=== PATIENT | female | born 1960 | race Caucasian/White ===

== ENCOUNTER 2018-02-16 17:51 | Emergency (ER) | payer OTHER ==
[2018-02-16] MEDS ORDERED: KETOROLAC 30 MG/ML INJ ONE (18:50)
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
== END 2018-02-16 20:17 | disposition home or self-care (01) ==
LOC: ER 17:51
DX: M79.642 Pain in left hand (principal); I10 Essential (primary) hypertension; E11.9 Type 2 diabetes mellitus without complications; V49.49XA Driver injured in collision with other motor vehicles in traffic accident, initial encounter
CPT/HCPCS: 96372; 99284

== ENCOUNTER 2018-09-23 06:38 | Inpatient (IN) | payer OTHER ==
[2018-09-22 16:40] LABS: Absolute Lymphocytes (CBC) 3.1 K/uL (0.7-4.9); Absolute Monocytes 0.7 K/uL (0.1-1.3); Absolute Neutrophil 6.6 K/uL (1.8-8.0); Basophils % 0.2 % (0-1.3); Eosinophils % 1.6 % (0-4.4); Hematocrit 42.1 % (36.0-45.0); MPV 10.2 fL (7.6-11.3); Monocytes % 7.1 % (3.3-12.3); RBC Red Blood Cell Count 4.89 M/uL (3.86-4.86)
--- NOTE | 2018-09-22 16:45 | RAD REPORT ---
EXAM DESCRIPTION: RAD - Chest Pa And Lat (2 Views) - 09/22/2018 4:17 pm CLINICAL HISTORY: Preop chest, pending cholecystectomy COMPARISON: October 2009 TECHNIQUE: PA and lateral views of the chest were obtained. FINDINGS: The lungs are underinflated. Chronic interstitial pattern is accentuated by shallow inspir ation. Heart size is normal and central vasculature is within normal limits. No pleural effusion or pneumothorax seen. No acute bony finding noted. No aortic abnormality. IMPRESSION: No acute cardiopulmonary process. Chronic interstitial lung pattern could mask early interstitial edema or infiltrate.
[2018-09-22 16:57] LABS: Potassium 4.3 mmol/L (3.5-5.1)
[2018-09-22 17:01] LABS: ALT/SGPT 32 U/L (12-78); AST/SGOT 16 U/L (15-37); Albumin 3.2 g/dL (3.4-5.0); Alkaline Phosphatase 101 U/L (45-117); Amylase Level 47 U/L (25-115); Bilirubin Direct < 0.1 mg/dL (0-0.2); Bilirubin Total 0.2 mg/dL (0.2-1.0); Protein, Total 7.5 g/dL (6.4-8.2)
--- NOTE | 2018-09-22 20:30 | EKG ---
Test Date: 2018-09-22 Test Time: 16:06:50 Wrapping Checker: SHITAL MEASUREMENT RESULTS: Intervals: Rate: 91 AR: 134 QRSD: 80 QT: 368 QTc: 452 [place]: P: 62 AR: 134 QRS: 65 T: 71 INTERPRETIVE STATEMENTS: Normal sinus rhythm Possible Left atrial enlargement Borderline ECG Compared to ECG 12/10/2005 08:09:02 No significant changes Electronically Signed On 09-22-18 20:29:25 CDT by Jaquan Roth
[2018-09-23] MEDS ORDERED: NA CHLORIDE 0.9% 1,000 ML ONE ×2 (07:10→10:32)
[2018-09-23] MEDS ORDERED: CEFOXITIN/SWI 1gm 0 GM/0 ML SYR ONE (07:20)
[2018-09-23] MEDS ORDERED: MIDAZOLAM HCL 2 MG/2 ML INJ ONE (07:50)
[2018-09-23] MEDS ORDERED: PROPOFOL 200 MG/20 ML VIAL IV ONE (07:50)
[2018-09-23] MEDS ORDERED: FENTANYL CITR 100 MCG/2 ML ONE ×4 (07:50→11:23)
[2018-09-23] MEDS ORDERED: LIDOCAINE 2% MPF 5 ML VIAL ONE (07:50)
[2018-09-23] MEDS ORDERED: DEXAMETHASONE 10 MG/ML VIAL ONE (07:50)
[2018-09-23] MEDS ORDERED: ROCURONIUM 50 MG/5 ML VIAL IV ONE ×2 (07:50→11:23)
[2018-09-23] MEDS ORDERED: BUPIVACAINE 0.5% PF 10 ML VIAL ONE (09:00)
[2018-09-23] MEDS ORDERED: CIPROFLOXACIN 400mg IV 400 MG/200 ML BAG IV ONE (09:25)
--- NOTE | 2018-09-23 11:37 | RAD REPORT ---
EXAM DESCRIPTION: RAD - Cholangiogram Oper-Xray Or - 09/23/2018 11:31 am CLINICAL HISTORY: LAP ROSETTE WITH IOC COMPARISON: Abdomen Pelvis Wo Contrast dated 09/17/2018 FINDINGS: Fluoroscopic imaging is submitted from intraoperative cholangiogram attempt. The biliary t ree is not adequately visualized. Total fluoro time: 0.3 minutes
[2018-09-23] MEDS ORDERED: KETOROLAC 30 MG/ML INJ ONE (11:54)
[2018-09-23] MEDS ORDERED: GLYCOPYRROLATE 0.2 MG/ML SYR ONE (12:01)
[2018-09-23] MEDS ORDERED: NEOSTIGMINE 1 MG/ML -10 ML VIAL ONE (12:02)
[2018-09-23] MEDS ORDERED: MORPHINE 10 MG/ML VIAL ONE (12:10)
[2018-09-23] MEDS ORDERED: INSULIN -REGULAR HUMAN 50 UNIT/0.5 ML ML ONE (12:40)
[2018-09-23] MEDS: MORPHINE 4 MG/ML SYR ONE ×2 (12:56→13:14)
[2018-09-23] MEDS ORDERED: NACHLORIDE 0.45% 1,000 ML IV SCH (14:00)
[2018-09-23] MEDS ORDERED: D50W 25 GM/50 ML SYRINGE IV PRN (14:39)
[2018-09-23] MEDS ORDERED: GLUCAGON 1 MG/VIAL IM PRN (14:39)
[2018-09-23] MEDS ORDERED: DOCUSATE NA 100 MG CAP PO PRN (14:41)
[2018-09-23] MEDS: HYDROMORPHONE HCL 1 MG/ML INJ IV PRN ×3 (14:54→20:34)
--- NOTE | 2018-09-23 15:42 | P.CNS ---
Date of Consult: 09/23/18 Reason for Consult: Medical Mgmt Requesting Physician: Ari Morley Primary Care Provider: Dr Montgomery Chief Complaint: RUQ pain History of Present Illness: This is a 57-year-old female with past medical history of diabetes and high blood pressure along with obesity who was admitted to the Day Surgery today for laparoscopic cholecystectomy. Patient was taken to the OR and was found to have a lot of adhesions along with severe liver cirrhosis and thus laparoscopic approach was not be successful and this patient had open cholecystectomy. Patient tolerated the open cholecystectomy well and thus was transferred to the floor for close monitoring for next 24 hr. Medical team was consulted for medical management for the patient due to diabetes and high blood pressure. Patient states that she smokes 1 pack of cigarettes a day and occasional alcohol about 1-2 glasses per month. Denies having used any drugs. Is upset currently as she does not want to be here in the hospital once to go home. Educated regarding the need to stay 24 hr to be observed due to extensive nature of her surgery. Allergies cephalexin [From Keflex] Allergy (Verified 09/22/18 16:00) Anaphylaxis Penicillins Allergy (Verified 09/22/18 16:00) Anaphylaxis Home Medications: Glyburide/Metformin HCl [Glucovance 5-500 mg Tablet] 2 each PO BID 09/22/18 Insulin NPH Hum/Reg Insulin Hm [Humulin 70/30 Kwikpen] 20 unit SQ NOON 09/22/18 Insulin NPH Hum/Reg Insulin Hm [Humulin 70/30 Kwikpen] 40 unit SQ BID 09/22/18 Losartan Potassium 100 mg PO BID 09/22/18 Oxycodone HCl [Oxycontin] 20 mg PO BIDP PRN 09/22/18 - Past Medical/Surgical History Diabetic: Yes -: diabetes -: htn - Social History Alcohol use: No CD- Drugs: No Caffeine use: Yes Place of Residence: Home Review of Systems 10-point ROS is otherwise unremarkable Physical Examination Temp Pulse Resp BP Pulse Ox 98.0 F 98 H 16 146/77 H 93 09/23/18 14:00 09/23/18 14:00 09/23/18 14:00 09/23/18 14:00 09/23/18 14:00 General: Alert, Obese, Other (Appears to be agitated) Respiratory: Clear to auscultation bilaterally, Normal air movement Cardiovascular: Regular rate/rhythm, Normal S1 S2 Gastrointestinal: Other (Abdominal binder in place.), Tenderness Musculoskeletal: No tenderness Integumentary: No rashes Neurological: Normal speech, Normal strength at 5/5 x4 extr Lymphatics: No axilla or inguinal lymphadenopathy Laboratory Data (last 24 hrs) 09/22/18 16:00: Total Bilirubin 0.2, AST 16, ALT 32, Alkaline Phosphatase 101, Amylase 47 09/22/18 16:00: Sodium 134 L, Potassium 4.3, BUN 10, Creatinine 1.25, Glucose 267 H 09/22/18 16:00: WBC 10.6, Hgb 13.8, Hct 42.1, Plt Count 249 - Problems (1) Gallbladder disease Current Visit: Yes Status: Acute Plan: Patient with symptomatic cholelithiasis. Initially scheduled for lap choly. However converted to open. -status post open cholecystectomy with adhesion lysis POD 0 -general surgery primary on the case. -pain management with Dilaudid and [place] -encouraged to ambulate, any use incentive spirometer (2) Diabetes Current Visit: Yes Status: Chronic Plan: Patient with type 2 diabetes current blood sugar in 300 -Accuchecks a.c. HS -patient does take 40 units of long-acting in the a.m. and 20 units in the p.m. at home -currently on clear liquid diet. Will start with mild sliding scale and adjust the sliding scale appropriately Qualifiers: Diabetes mellitus type: type 2 Diabetes mellitus longterm insulin use: without terminal operations supervisor use Diabetes mellitus complication status: without complication Qualified Code(s): E11.9 - Type 2 diabetes mellitus without complications (3) Hypertension Current Visit: Yes Status: Chronic Plan: Currently blood pressure is stable. -restarted on losartan from home -will monitor closely Qualifiers: Hypertension type: essential hypertension Qualified Code(s): I10 - Essential (primary) hypertension (4) Obesity Current Visit: Yes Status: Chronic Qualifiers: Obesity type: due to excess calories Obesity classification: adult class 1 (BMI 30 - 34.9) Serious obesity comorbidity presence: without serious comorbidity Body mass index: BMI 30.0-30.9 Qualified Code(s): E66.09 - Other obesity due to excess calories; Z68.30 - Body mass index (BMI) 30.0-30.9, adult (5) Tobacco abuse Current Visit: Yes Status: Acute Plan: Educated extensively regarding tobacco cessation -will put nicotine patch on at this time Conclusions/Impression: 49-year-old female was admitted to the hospital for systematic cholelithiasis now with open cholecystectomy. Doing well postprocedure. Will continue to follow along with general surgery. Thank you for the kind consult Critical Care: No
[2018-09-23] MEDS: NICOTINE 7 MG/PAT TD SCH (16:19)
[2018-09-23] MEDS ORDERED: INSULIN -REGULAR HUMAN 50 UNIT/0.5 ML ML SQ SCH (16:30)
[2018-09-23] MEDS: NACHLORIDE 0.45% 1,000 ML IV SCH (17:59)
[2018-09-23] MEDS: ONDANSETRON 4 MG/2 ML VIAL IV PRN (18:02)
[2018-09-23] MEDS ORDERED: HYDROCODONE/CHLORPHEN 5 ML/OSYR PO ONE (20:01)
[2018-09-23] MEDS: CIPROFLOXACIN 400mg IV 400 MG/200 ML BAG IV SCH (20:35)
[2018-09-23] MEDS: LOSARTAN POTASSIUM 50 MG TABLET PO SCH (20:35)
[2018-09-23] MEDS: INSULIN -REGULAR HUMAN 50 UNIT/0.5 ML ML SQ SCH (20:35)
[2018-09-23] MEDS: BENZONATATE 100 MG CAP PO PRN (20:52)
[2018-09-23] MEDS ORDERED: HOME MED 1 EA UNK (Losartan Potassium [Losartan Potassium] 100 MG) PO SCH (21:00)
--- NOTE | 2018-09-23 21:41 | OP ---
Date of Procedure: 09/23/2018 Surgeon: Ari Morley MD Drive In Theater Attendant: MARQUISE Brandon. Preoperative Diagnosis: Symptomatic cholelithiasis. Postoperative Diagnoses: Symptomatic cholelithiasis with extensive adhesions and cirrhosis of the li lisset. Estimated Blood Loss: Minimal. Specimen: Gallbladder. Procedures Performed: Diagnostic laparoscopy, extensive lysis of adhesions. Intraoperative cholangi ogram, and open cholecystectomy. Finding: As above. Anesthesia: General. Complications: None. Disposition: The patient tolerated the procedure in stable condition and taken to Recovery in good g eneral condition. Procedure In Detail: The patient was brought to the OR and placed in supine position. General anest hesia was begun. The patient was prepped and draped in usual sterile fashion. Marcaine 0.5% was inf iltrated locally. A 15-blade was used to make a 1 cm supraumbilical midline incision. Subcutaneous tissue divided. The fascia was identified and divided. A #1 Vicryl stay suture was placed. Periton eal cavity was entered with blunt dissection, and then a 12 mm trocar was placed into the peritoneal cavity under direct vision. Pneumoperitoneum was established. Laparoscopy revealed extensive adhesi ons to the right upper quadrant, where I could not even put a trocar on that side, so 2 trocars were placed on the left side on the abdomen; 1 in the left upper quadrant, 1 in the left middle quadrant; and then LigaSure was used to divide all of the adhesions until we could get a better look at the gal lbladder, and this was encased in adhesion as well. After the right side of the abdomen all the adhe sions were taken down, then 3 trocars were placed in the standard location for gallbladder surgery. Gallbladder was distended, aspirated, and then the fundus was retracted superiorly. Extensive adhesi olysis was done on the gallbladder itself until the infundibulum identified, and then and it was retr acted inferolaterally. However, I could not get a clear view of the cystic duct at this point. Intr aoperative cholangiogram was performed, but again, the cystic duct and the common bile duct could not be visualized because there may have been a stone or a structure obstructing it. At this time, I fe lt it was safer to convert to an open. Then a right subcostal incision was made. Subcutaneous tissu e divided. The fascia was identified and divided. Peritoneal cavity entered. The liver mobilized t o bring the gallbladder into the wound, and then retrograde dissection of the gallbladder was perform ed. Care was taken, as the liver was cirrhotic, for bleeding, and this was controlled with cautery, and then the cystic duct and cystic artery were finally identified, once the infundibulum was freed f rom the surrounding tissue and then both were clamped and tied with 2-0 silk ties, excised. Clips we re used for minor branches of the artery that were present on the body of the gallbladder, and then t he gallbladder was removed, sent to Pathology as specimen. Wound was irrigated. There was no eviden ce of bleeding noted on the liver bed. However, since patient had cirrhosis, I opted to place a Surg icel, and this was observed, and there was no evidence of any further bleeding subsequently. After t he count was correct, #1 chromic was used to close the peritoneal cavity and wound irrigated, bleedin g controlled with cautery, and then #2 nylon was used to close the fascia. Wound irrigated. Bleedin g controlled with cautery and then domenico used to close all the wounds. Stay sutures at the umbilic us were tied to each other to approximate the fascial defect. Sterile dressings were applied. The patient was awakened and taken to Recovery in good general condition. JANNIE/MAKAYLAL Voice ID: [id number] Report ID: [id number]
[2018-09-24] MEDS: HYDROMORPHONE HCL 1 MG/ML INJ IV PRN ×2 (00:47→17:49)
[2018-09-24] MEDS: HYDROMORPHONE HCL 2 MG/ML inj IV PRN ×3 (03:32→23:47)
[2018-09-24] MEDS: NACHLORIDE 0.45% 1,000 ML IV SCH ×3 (04:17→23:47)
[2018-09-24 06:39] LABS: Absolute Lymphocytes (CBC) 2.4 K/uL (0.7-4.9); Absolute Monocytes 1.4 K/uL (0.1-1.3); Absolute Neutrophil 18.2 K/uL (1.8-8.0); Basophils % 0.7 % (0-1.3); Hematocrit 38.9 % (36.0-45.0); Lymphocytes % 10.7 % (15.3-44.8); MPV 10.2 fL (7.6-11.3); Monocytes % 6.3 % (3.3-12.3)
[2018-09-24 06:56] LABS: Magnesium 1.8 mg/dL (1.8-2.4)
[2018-09-24 06:57] LABS: Bilirubin Total 0.5 mg/dL (0.2-1.0); Potassium 4.5 mmol/L (3.5-5.1); Protein, Total 7.1 g/dL (6.4-8.2)
[2018-09-24] MEDS: HYDROCODONE/APAP 7.5/325 MG TAB PO PRN ×2 (07:25→16:24)
[2018-09-24] MEDS ORDERED: METFORMIN HCL 500 MG TAB PO SCH (08:00)
[2018-09-24] MEDS ORDERED: glyBURIDE 2.5 MG TAB PO SCH (08:00)
[2018-09-24] MEDS: METRONIDAZOLE 500mg IVPB 500 MG/100 ML BAG IV SCH ×4 (08:55→23:47)
[2018-09-24] MEDS: INSULIN -REGULAR HUMAN 50 UNIT/0.5 ML ML SQ SCH ×4 (08:55→21:31)
[2018-09-24] MEDS: NPH (HUMAN) 100 UNITS/ML INSULIN SQ SCH ×2 (08:56→09:00)
[2018-09-24] MEDS: LOSARTAN POTASSIUM 50 MG TABLET PO SCH ×2 (08:58→21:31)
[2018-09-24] MEDS: NICOTINE 7 MG/PAT TD SCH (08:58)
[2018-09-24] MEDS ORDERED: GLYBURIDE PO SCH (09:00)
[2018-09-24] MEDS ORDERED: METFORMIN HCL PO SCH (09:00)
[2018-09-24] MEDS: CIPROFLOXACIN 400mg IV 400 MG/200 ML BAG IV SCH ×2 (09:52→21:30)
[2018-09-24] MEDS: BENZONATATE 100 MG CAP PO PRN (11:08)
[2018-09-24] MEDS ORDERED: NPH (HUMAN) 100 UNITS/ML INSULIN SQ SCH ×2 (12:00→17:00)
--- NOTE | 2018-09-24 13:21 | P.PN ---
Subjective Date of Service: 09/24/18 Primary Care Provider: Dr Montgomery Chief Complaint: RUQ pain Subjective: Ambulating, Improving, C/O voiced (of abdominal pain.), Doing well Review of Systems 10-point ROS is otherwise unremarkable Physical Examination - Vital Signs Temperature: 98.4 F Blood Pressure: 132/69 Pulse: 114 Respirations: 16 Pulse Ox (%): 91 - Physical Exam General: Alert, Mild distress HEENT: Atraumatic, PERRLA, EOMI Neck: Supple, JVD not distended Respiratory: Clear to auscultation bilaterally, Normal air movement Cardiovascular: Regular rate/rhythm, Normal S1 S2 Gastrointestinal: Normal bowel sounds, Tenderness (Generalized tenderness. Abdominal binder in place) Musculoskeletal: No tenderness Integumentary: No rashes Neurological: Normal speech, Normal tone, Normal affect Lymphatics: No axilla or inguinal lymphadenopathy - Studies Laboratory Data (last 24 hrs) 09/24/18 06:06: Sodium 130 L, Potassium 4.5, BUN 16, Creatinine 0.95, Glucose 259 H, Total Bilirubin 0.5, AST 57 H, ALT 56, Alkaline Phosphatase 67 09/24/18 06:06: WBC 22.1 H* D, Hgb 12.7, Hct 38.9, Plt Count 236 09/24/18 06:06: Sodium Cancelled, Potassium Cancelled, BUN Cancelled, Creatinine Cancelled, Glucose Cancelled, Phosphorus 4.0, Magnesium 1.8 09/24/18 06:00: WBC Cancelled, Hgb Cancelled, Hct Cancelled, Plt Count Cancelled Medications List Reviewed: Yes Assessment And Plan - Current Problems (Diagnosis) (1) Gallbladder disease Current Visit: Yes Status: Acute Plan: Patient with symptomatic cholelithiasis. Initially scheduled for lap choly. However converted to open. -status post open cholecystectomy with adhesion lysis POD 1 -general surgery primary on the case. -pain management with Dilaudid and Wolverine -this morning patient's white count was elevated started on IV Cipro and metronidazole at this time -encouraged to ambulate, any use incentive spirometer (2) Diabetes Current Visit: Yes Status: Chronic Plan: Patient with type 2 diabetes current blood sugar in 300 -Accuchecks a.c. HS -patient does take 40 units of long-acting in the P.m. and 20 units in the a.m. at home -restarted that here in the hospital along with sliding scale -patient is noncompliant with diet and has been drinking high sugar drinks while here in the hospital despite education Qualifiers: Diabetes mellitus type: type 2 Diabetes mellitus buttermilk drier operator insulin use: without buttermilk drier operator use Diabetes mellitus complication status: without complication Qualified Code(s): E11.9 - Type 2 diabetes mellitus without complications (3) Hypertension Current Visit: Yes Status: Chronic Plan: Currently blood pressure is stable. -restarted on losartan from home -will monitor closely Qualifiers: Hypertension type: essential hypertension Qualified Code(s): I10 - Essential (primary) hypertension (4) Obesity Current Visit: Yes Status: Chronic Qualifiers: Obesity type: due to excess calories Obesity classification: adult class 1 (BMI 30 - 34.9) Serious obesity comorbidity presence: without serious comorbidity Body mass index: BMI 30.0-30.9 Qualified Code(s): E66.09 - Other obesity due to excess calories; Z68.30 - Body mass index (BMI) 30.0-30.9, adult (5) Tobacco abuse Current Visit: Yes Status: Acute Plan: Educated extensively regarding tobacco cessation -nicotine patch on at this time - Plan Pending clinical improvement at this time Discharge Plan: Home Plan to discharge in: 24 Hours - Code Status/Comfort Care Code Status Assessed: Yes Critical Care: No
--- NOTE | 2018-09-24 14:29 | PN ---
Date of Progress Note: 09/24/2018 Subjective: The patient is awake and alert. She is complaining of crampy abdominal pain. Physical Examination: Her vital signs are stable. She is slightly tachycardic. She is afebrile. She is tolerating her di et. Laboratory Data: Significant for a white count of 22,100 with a left shift. Chemistry reviewed. Ab domen is benign. Dressings clean, dry, and intact. Assessment: Status post open cholecystectomy. Recommendations: The patient wants to go home. I told her it would be against medical advice as she has significant leukocytosis requiring IV antibiotics. She decided to stay. She was encouraged to ambulate and use incentive spirometry. Continue IV antibiotics. We will check labs tomorrow. If selene norwood is improving, we will discharge patient on oral antibiotics tomorrow. /MODL Voice ID: [id number] Report ID: [id number]
[2018-09-24] MEDS: ONDANSETRON 4 MG/2 ML VIAL IV PRN ×2 (16:24→21:35)
[2018-09-25] MEDS: ONDANSETRON 4 MG/2 ML VIAL IV PRN (05:25)
[2018-09-25] MEDS: METRONIDAZOLE 500mg IVPB 500 MG/100 ML BAG IV SCH (05:25)
[2018-09-25 06:07] LABS: Absolute Lymphocytes (CBC) 2.1 K/uL (0.7-4.9); Absolute Monocytes 1.3 K/uL (0.1-1.3); Absolute Neutrophil 14.1 K/uL (1.8-8.0); Basophils % 0.3 % (0-1.3); Eosinophils % 0.2 % (0-4.4); Hematocrit 37.2 % (36.0-45.0); Lymphocytes % 12.2 % (15.3-44.8); MPV 9.9 fL (7.6-11.3); Monocytes % 7.2 % (3.3-12.3); RBC Red Blood Cell Count 4.39 M/uL (3.86-4.86)
[2018-09-25 06:26] LABS: ALT/SGPT 47 U/L (12-78); AST/SGOT 42 U/L (15-37); Albumin 2.8 g/dL (3.4-5.0); Alkaline Phosphatase 55 U/L (45-117); BUN Blood Urea Nitrogen 9 mg/dL (7-18); Bicarbonate 27 mmol/L (21-32); Bilirubin Total 0.6 mg/dL (0.2-1.0); Glucose Level 196 mg/dL (74-106); Protein, Total 6.3 g/dL (6.4-8.2); Sodium Level 132 mmol/L (136-145)
[2018-09-25] MEDS: INSULIN -REGULAR HUMAN 50 UNIT/0.5 ML ML SQ SCH (07:30)
[2018-09-25] MEDS ORDERED: NPH (HUMAN) 100 UNITS/ML INSULIN SQ SCH (08:00)
[2018-09-25] MEDS: NICOTINE 7 MG/PAT TD SCH (08:11)
[2018-09-25] MEDS: BENZONATATE 100 MG CAP PO PRN (08:11)
[2018-09-25] MEDS: LOSARTAN POTASSIUM 50 MG TABLET PO SCH (08:11)
[2018-09-25] MEDS: HYDROCODONE/APAP 7.5/325 MG TAB PO PRN (08:12)
[2018-09-25] MEDS: CIPROFLOXACIN 400mg IV 400 MG/200 ML BAG IV SCH (08:12)
[2018-09-25] MEDS: NACHLORIDE 0.45% 1,000 ML IV SCH (08:13)
--- NOTE | 2018-09-25 11:09 | RAD REPORT ---
EXAM DESCRIPTION: RAD - Chest Single View - 09/25/2018 6:32 am CLINICAL HISTORY: pneumonia Chest pain. COMPARISON: Chest Pa And Lat (2 Views) dated 09/22/2018; CHEST PA AND LAT 2 VIEW dated 10/26/2009; CHES T PA AND LAT 2 VIEW dated 12/10/2005 FINDINGS: Portable technique limits examination quality. Moderate left lung base and a mild right lung base pulmonary opacity has developed since the comparat summer study. This likely represents pneumonia/aspiration. The heart is normal in size. No displaced fra ctures.
--- NOTE | 2018-09-25 12:18 | P.PN ---
Subjective Date of Service: 09/25/18 Primary Care Provider: Dr Montgomery Chief Complaint: RUQ pain Subjective: No C/O voiced, Tolerating diet, Ambulating, Improving, Working w/ PT , Doing well Review of Systems 10-point ROS is otherwise unremarkable Physical Examination - Vital Signs Temperature: 98.7 F Blood Pressure: 145/77 Pulse: 113 Respirations: 24 Pulse Ox (%): 94 - Physical Exam General: Alert, In no apparent distress HEENT: Atraumatic, PERRLA, EOMI Neck: Supple, JVD not distended Respiratory: Clear to auscultation bilaterally, Normal air movement Cardiovascular: Regular rate/rhythm, Normal S1 S2 Gastrointestinal: Normal bowel sounds, Other (Abdominal binder in place), Tenderness (Generalized) Musculoskeletal: No tenderness Integumentary: No rashes Neurological: Normal speech, Normal tone, Normal affect Lymphatics: No axilla or inguinal lymphadenopathy - Studies Laboratory Data (last 24 hrs) 09/25/18 05:56: Sodium 132 L, Potassium 4.0, BUN 9, Creatinine 0.67, Glucose 196 H, Total Bilirubin 0.6, AST 42 H, ALT 47, Alkaline Phosphatase 55 09/25/18 05:56: WBC 17.6 H D, Hgb 12.3, Hct 37.2, Plt Count 215 Medications List Reviewed: Yes Assessment And Plan - Current Problems (Diagnosis) (1) Gallbladder disease Status: Acute Plan: Patient with symptomatic cholelithiasis. Initially scheduled for lap choly. However converted to open. -status post open cholecystectomy with adhesion lysis POD 2 -general surgery primary on the case. -pain management with Dilaudid and Gurley -white count is trending down. Patient could be switched over to oral antibiotics and discharged home today if okay with surgery -encouraged to ambulate, any use incentive spirometer (2) Diabetes Status: Chronic Plan: Patient with type 2 diabetes current blood sugar in 300 -Accuchecks a.c. 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 -restarted on losartan from home -will monitor closely Qualifiers: Hypertension type: essential hypertension Qualified Code(s): I10 - Essential (primary) hypertension (4) Obesity Status: Chronic Qualifiers: Obesity type: due to excess calories Obesity classification: adult class 1 (BMI 30 - 34.9) Serious obesity comorbidity presence: without serious comorbidity Body mass index: BMI 30.0-30.9 Qualified Code(s): E66.09 - Other obesity due to excess calories; Z68.30 - Body mass index (BMI) 30.0-30.9, adult (5) Tobacco abuse Status: Acute Plan: Educated extensively regarding tobacco cessation -nicotine patch on at this time - Plan Patient is cleared for discharge from medical standpoint at this time. Discharge Plan: Home Plan to discharge in: 48 Hours - Code Status/Comfort Care Code Status Assessed: Yes Critical Care: No
--- NOTE | 2018-09-25 13:40 | DS ---
Date of Discharge: 09/25/2018 Admitting Diagnosis: Symptomatic cholelithiasis. Discharge Diagnosis: Symptomatic cholelithiasis with extensive adhesions and cirrhosis. Procedures Performed: Diagnostic laparoscopy, lysis of adhesions, open cholecystectomy. Hospital Course: The patient is a 57-year-old female who underwent the aforementioned procedure. Po stoperatively, she was put on antibiotics, parenteral pain management. Her white count was elevated yesterday, so she was kept for an extra day for IV antibiotics. [place] [id number] is down to 17,000; however, clinically she is doing very well. She is tolerating diet ambu lating pain controlled with p.o. pain medication, afebrile, and patient wants to go home. Therefore we will discharge her on oral antibiotics, if it is okay with Dr. Morgan. Disposition: Home. Condition: Stable. Discharge Instructions: Resume home medications and diet. Activity as tolerated. No heavy lifting. Remove outer dressing in a.m. Shower. Keep wound clean and dry. Followup in my office in 1 week. Call for appointment. The patient has pain medication, and Cipro and Flagyl given. /MODL Voice ID: [id number] Report ID: [id number]
== END 2018-09-25 11:46 | disposition home or self-care (01) | DRG 416 ==
LOC: OR 06:38 → 2ND 12:00 → OR 12:28
PROVIDERS: ADMIT Surgery; ATTEND Surgery
PROC: 0FJ44ZZ Inspection of Gallbladder, Percutaneous Endoscopic Approach (ICD-10-PCS; 2018-09-23)
PROC: BF00YZZ Plain Radiography of Bile Ducts using Other Contrast (ICD-10-PCS; 2018-09-23)
PROC: 0FT40ZZ Resection of Gallbladder, Open Approach (ICD-10-PCS; principal; 2018-09-23 09:00)
DX: K80.20 Calculus of gallbladder without cholecystitis without obstruction (principal); K66.0 Peritoneal adhesions (postprocedural) (postinfection); K74.60 Unspecified cirrhosis of liver; I10 Essential (primary) hypertension; E11.9 Type 2 diabetes mellitus without complications; Z88.0 Allergy status to penicillin; E66.9 Obesity, unspecified; Z68.30 Body mass index [BMI] 30.0-30.9, adult; F17.210 Nicotine dependence, cigarettes, uncomplicated; D72.829 Elevated white blood cell count, unspecified
CPT/HCPCS: 36415; 71045; 71046; 74300; 80048; 80053; 80076; 82150; 82962; 83036; 83605; 83735; 84100; 85025; 88304; 93005; 96365; 96367; J0744; J1100; J1170; J2250; J2405; J2704; J2710; J3010; J7030

== ENCOUNTER 2021-10-24 14:11 | Inpatient (IN) | payer OTHER, SELFPAY ==
[2021-10-24] MEDS ORDERED: NA CHLORIDE 0.9% 1,000 ML ONE (14:39)
[2021-10-24 14:40] LABS: Absolute Lymphocytes (CBC) 2.6 K/uL (0.7-4.9); Lymphocytes % 24.7 % (15.3-44.8); MPV 9.2 fL (7.6-11.3); RBC Red Blood Cell Count 5.31 M/uL (3.86-4.86)
[2021-10-24 14:44] LABS: Protime INR 1.16
[2021-10-24 14:57] LABS: Potassium 3.5 mmol/L (3.5-5.1)
[2021-10-24 14:58] LABS: Troponin High Sensitivity 4695.8 pg/mL (<58.9)
--- NOTE | 2021-10-24 15:08 | RAD REPORT ---
EXAM DESCRIPTION: CT - Ct Stroke Brain Wo Cont - 10/24/2021 2:46 pm CLINICAL HISTORY: Slurred speech COMPARISON: none TECHNIQUE: Computed axial tomography of the head was obtained. All CT scans are performed using dose optimization technique as appropriate and may include automated exposure control or mA/KV adjustment according to patient size. FINDINGS: An intracranial bleed is not seen . The ventricles are normal in caliber. No extra-axial fluid collection is noted. No significant hypodensity within the brain Fluid within the sinuses/ mastoids is not seen. IMPRESSION: No acute intracranial abnormality is seen. If patient's symptoms persist MRI of the bra in would be recommended. Luisana of the emergency room was notified at 3:03 p.m. on October 24, 2021
[2021-10-24] MEDS ORDERED: INSULIN -REGULAR HUMAN 50 UNIT/0.5 ML ML ONE (15:36)
[2021-10-24] MEDS ORDERED: ASPIRIN 325 MG TAB ONE (16:10)
[2021-10-24] MEDS ORDERED: HEPARIN/D5W 25,000 UNIT/500 ML BAG IV ONE (16:13)
--- NOTE | 2021-10-24 16:26 | RAD REPORT ---
EXAM DESCRIPTION: Loly Single View10/24/2021 3:51 pm CLINICAL HISTORY: Chest pain COMPARISON: 2019 FINDINGS: Mild bilateral interstitial lung opacities probably chronic. Heart is normal size
--- NOTE | 2021-10-24 16:34 | EDPHYS ---
Physician Documentation [facility] Name: Alexa Barajas Age: 60 yrs Sex: Female : 1960 Arrival Date: 10/24/2021 Time: 14:13 Bed 14 Private MD: ED Physician Barrera Kim HPI: 10/24 14:19 This 60 yrs old Female presents to ER via EMS with complaints of S/S of Possible Stroke.jr11 14:19 The patient's problem is reported as paresthesias, in left lower extremity, in left jr11 side of face, weakness, in the left upper extremity, in the left lower extremity. Onset: The symptoms/episode began/occurred 1 week(s) ago. Duration: This was a single incident. The symptoms are alleviated by nothing. The symptoms are aggravated by walking. Associated signs and symptoms: Pertinent negatives: abdominal pain, agitation, diarrhea, not seizure. Severity of symptoms: At their worst the symptoms were moderate in the emergency department the symptoms are worse. no prior history of stroke, barely able to ambulate x 1 week. Historical: - Allergies: 14:22 PENICILLINS (Anaphylaxis); tw2 14:22 cephalexin (Anaphylaxis); tw2 14:22 Keflex (Anaphylaxis); tw2 - PMHx: 14:22 Diabetes - IDDM; Hypertension; tw2 14:45 Liver Cancer; tw2 - Immunization history:: Adult Immunizations. - Social history:: Smoking status: Patient reports the use of cigarette tobacco products, smokes one pack cigarettes per day. ROS: 14:19 All other systems are negative. jr11 Exam: 14:19 Constitutional: This is a well developed, well nourished patient who is awake, alert, jr11 and in no acute distress. Head/Face: Normocephalic, atraumatic. Eyes: Extra-ocular motions intact. Lids and lashes normal. Conjunctiva and sclera are non-icteric and not injected. Cornea within normal limits. Periorbital areas with no swelling, redness, or edema. ENT: Nares patent. No nasal discharge, no septal abnormalities noted. Oropharynx with no redness, swelling, or masses, exudates, or evidence of obstruction, uvula midline. Mucous membranes moist. Neck: Trachea midline, no thyromegaly or masses palpated, and no cervical lymphadenopathy. Supple, full range of motion without nuchal rigidity, or vertebral point tenderness. No Meningismus. Chest/axilla: Normal chest wall appearance and motion. Nontender with no deformity. No lesions are appreciated. Cardiovascular: Regular rate and rhythm with a normal S1 and S2. No gallops, murmurs, or rubs. Normal PMI, no JVD. No pulse deficits. Respiratory: Lungs have equal breath sounds bilaterally, clear to auscultation and percussion. No rales, rhonchi or wheezes noted. No increased work of breathing, no retractions or nasal flaring. Abdomen/GI: Soft, non-tender, with normal bowel sounds. No distension or tympany. No guarding or rebound. No evidence of tenderness throughout. Skin: Warm, dry with normal turgor. Normal color with no rashes, no lesions, and no evidence of cellulitis. Neuro: Awake and alert, GCS 15, oriented to person, place, time, and situation. LLE L face with decrease sensation, no drift. +dysarthra Vital Signs: 14:10 BP 180 / 89; Pulse 101; Resp 18; Temp 98.8(O); Pulse Ox 99% on R/A; Weight 54.43 kg tw2 (R); Height 5 ft. 1 in. (154.94 cm); 15:26 BP 176 / 81; Pulse 90; Resp 17; Pulse Ox 99% on R/A; tw2 16:24 BP 171 / 140; Pulse 94; Resp 16; Pulse Ox 100% on R/A; tw2 17:30 BP 140 / 119; Pulse 94; Resp 19; Pulse Ox 100% on R/A; tw2 18:26 BP 186 / 53; Pulse 97; Resp 22; Pulse Ox 100% on R/A; tw2 14:10 Body Mass Index 22.67 (54.43 kg, 154.94 cm) tw2 NIH Stroke Scale Scores: 14:19 NIHSS Score: 5 jr11 MDM: 14:16 Patient medically screened. jr11 14:19 Differential diagnosis: CVA. Data reviewed: vital signs, nurses notes, EMS record. ED jr11 course: Patient is a 60-year-old with strokelike symptoms that have been going on for 1 week, high likelihood of stroke, inability to walk, left-sided weakness, paresthesias, dysarthria and aphasia. Stroke scale of 5, not a tPA candidate given that symptoms been going on greater than 5 days.. 15:35 ED course: Pt with + trop, EKG is concerning but non diagnostic for STEMI. Pt denies [facility] any chest pain what so ever. Full dose ASA ordered. 15:53 ED course: cards Nova will see tomorrow, rec heparin drip. [facility] 10/24 14:16 Order name: Basic Metabolic Panel; Complete Time: 15:26 [facility] 10/24 14:16 Order name: CBC with Diff; Complete Time: 15:26 [facility] 10/24 14:16 Order name: Protime (+inr); Complete Time: 15:26 [facility] 10/24 14:16 Order name: Ptt, Activated; Complete Time: 15:26 [facility] 10/24 14:16 Order name: UDS [facility] 10/24 14:16 Order name: Troponin HS; Complete Time: 15:26 [facility] 10/24 14:16 Order name: CT Stroke Brain w/o Contrast; Complete Time: 15:26 [facility] 10/24 14:23 Order name: COVID-19 SARS RT PCR (Document "Date of Onset" if Symptomatic); Complete [facility] Time: 17:21 10/24 14:42 Order name: Glucose, Ancillary Testing; Complete Time: 15:26 [facility] 10/24 18:45 Order name: Urine Dipstick-Ancillary [facility] 10/24 20:11 Order name: Troponin HS [facility] 10/24 20:11 Order name: Ptt, Activated ke1 10/24 20:43 Order name: PTT, Activated Partial Thromb [facility] 10/24 20:51 Order name: Troponin High Sensitivity [facility] 10/24 14:16 Order name: Stroke CXR 1 View; Complete Time: 16:30 [facility] 10/24 14:16 Order name: EKG; Complete Time: 14:17 [facility] 10/24 14:16 Order name: Accucheck; Complete Time: 14:40 [facility] 10/24 14:16 Order name: Cardiac monitoring; Complete Time: 14:40 10/24 14:16 Order name: EKG - Nurse/Tech; Complete Time: 14:40 [facility] 10/24 14:16 Order name: IV Saline Lock; Complete Time: 14:40 [facility] 10/24 14:16 Order name: Labs collected and sent; Complete Time: 14:40 10/24 14:16 Order name: O2 Per Protocol; Complete Time: 14:23 10/24 14:16 Order name: O2 Sat Monitoring; Complete Time: 14:23 10/24 15:31 Order name: EKG; Complete Time: 15:31 10/24 19:24 Order name: US EDMS 10/24 14:16 Order name: Stroke Swallow Screen; Complete Time: 15:25 10/24 19:09 Order name: Adams; Complete Time: 19:09 tw2 Administered Medications: 14:55 Drug: NS 0.9% 1000 ml Route: IV; Rate: 1 bolus; Site: left antecubital; tw2 16:04 Follow up: Response: No adverse reaction; IV Status: Completed infusion; IV Intake: tw2 1000ml 15:32 Drug: Insulin Regular Human 5 units {Co-Signature: yunier (Jenni Hodgson RN).} Route: tw2 IVP; Site: left antecubital; 19:09 Follow up: Response: No adverse reaction tw2 16:07 Drug: Aspirin 325 mg Route: PO; ss 16:17 Follow up: Response: No adverse reaction tw2 16:15 Drug: Heparin ([place] Drip) 12 units/kg/hr - (HEParin 74454 units, D5W 500 ml) tw2 {Co-Signature: yunier (Jenni Hodgson RN).} Route: IV; Rate: calculated rate; Site: left antecubital; Point of Care Testing: Blood Glucose: 14:30 Blood Glucose: 403 mg/dL; tw2 14:30 provider notified, iv fluid ordered. tw2 Ranges: Critical Glucose Levels:Adult <50 mg/dl or >400 mg/dl <40 mg/dl or >180 mg/dl Disposition Summary: 10/24/21 16:34 Hospitalization Ordered Hospitalization Status: Inpatient Admission jr11 Provider: Mayco Pate [facility] Location: Telemetry/MedSurg (Inpatient) [facility] Condition: Serious jr Problem: new jr11 Symptoms: are unchanged jr11 Bed/Room Type: Standard [facility] Room Assignment: 205(10/24/21 20:23) ph Diagnosis - Subsequent non-ST elevation (NSTEMI) myocardial infarction jr11 - Weakness jr11 - Paresthesia of skin jr11 Discharge Instructions: - Discharge Summary Sheet tw2 Forms: - Medication Reconciliation Form jr11 - SBAR form jr11 Critical care time excluding procedures: 15:53 Critical care time: Bedside Care: 15 minutes, Consultation: 10 minutes, Family jr11 Intervention: 6 minutes. Total time: 31 minutes NIH Stroke Scale - NIH Stroke Score Date: 10/24/2021 Time: 14:19 Total Score = 5 1a. Level of Consciousness (LOC) - 0(Alert) 1b. Level of Consciousness (LOC) (Month \\T\\ Age) - 0(Both) 1c. LOC Commands (Open \\T\\ Closes Eyes/Mast Maker) - 0(Both) 2. Best Gaze (Lateral Gaze Paresis) - 0(Normal) 3. Visual Field Loss - 0(No visual loss) 4. Facial Palsy - 1(Minor Paralysis) 5a. Left Arm: Motor (10-second hold) - 0(No drift) 5b. Right Arm: Motor (10-second hold) - 0(No drift) 6a. Left Leg: Motor (5-second hold - always test supine) - 1(Drift) 6b. Right Leg: Motor (5-second hold - always test supine) - 0(No drift) 7. Limb Ataxia (finger/nose \\T\\ heel/alvarez - test with eyes open) - 0(Absent) 8. Sensory Loss (pinprick arms/legs/face) - 1(Mild to moderate loss) 9. Best Language: Aphasia (description/naming/reading) - 1(Mild to moderate aphasia) 10. Dysarthria (speech clarity - read or repeat words) - 1(Mild to Moderate) 11. Extinction and Inattention (visual/tactile/auditory/spatial/personal) - 0(No abnormality) Initials: jr11 Signatures: Dispatcher [employer] EDMS Jessie Salmeron RN RN ss Lamar Cazares RN RN ph Shaye Holland RN RN tw2 Barrera Kim MD MD jr11 Jenni faye Corrections: (The following items were deleted from the chart) 20:23 16:34 jr ph
--- NOTE | 2021-10-24 16:34 | ER ---
Nurse's Notes [facility] Name: Alexa Barajas Age: 60 yrs Sex: Female : 1960 Arrival Date: 10/24/2021 Time: 14:13 Bed 14 Private MD: Diagnosis: Subsequent non-ST elevation (NSTEMI) myocardial infarction;Weakness;Paresthesia of skin Presentation: 10/24 14:10 Chief complaint: EMS states: pt from home with s/s of stroke like symptoms x1 week. tw2 states she believes she has had another one Thursday that has interfered with her ability to ambulate. vs stable. Coronavirus screen: At this time, the client does not indicate any symptoms associated with coronavirus-19. Ebola Screen: Patient denies travel to an Ebola-affected area in the 21 days before illness onset. Initial Sepsis Screen: Does the patient meet any 2 criteria? HR > 90 bpm. No. Patient's initial sepsis screen is negative. Does the patient have a suspected source of infection? No. Patient's initial sepsis screen is negative. Risk Assessment: Do you want to hurt yourself or someone else? Patient reports no desire to harm self or others. Onset of symptoms was October 17, 2021. 14:10 Method Of Arrival: EMS: [facility] tw2 14:10 Acuity: ROXANNA 3 tw2 14:10 Note provider at bedside at this time. Care prior to arrival: IV initiated. 18 GA, in tw2 the left antecubital area. Triage Assessment: 14:10 General: Appears in no apparent distress. slender, Behavior is calm, cooperative, tw2 appropriate for age. Pain: Denies pain. Neuro: Level of Consciousness is awake, alert, obeys commands, Oriented to person, place, time, situation, Reports left sided weakness and left sided decreased sensation. Neuro: Reports speech is more slurred and slow than normal. Cardiovascular: Capillary refill < 3 seconds. Respiratory: Airway is patent Respiratory effort is even, unlabored, Respiratory pattern is regular, symmetrical. Musculoskeletal: Range of motion: intact in all extremities. Historical: - Allergies: 14:22 PENICILLINS (Anaphylaxis); tw2 14:22 cephalexin (Anaphylaxis); tw2 14:22 Keflex (Anaphylaxis); tw2 - PMHx: 14:22 Diabetes - IDDM; Hypertension; tw2 14:45 Liver Cancer; tw2 - Immunization history:: Adult Immunizations. - Social history:: Smoking status: Patient reports the use of cigarette tobacco products, smokes one pack cigarettes per day. Screenin:21 Abuse screen: Denies threats or abuse. Nutritional screening: No deficits noted. tw2 Tuberculosis screening: No symptoms or risk factors identified. Fall Risk Secondary diagnosis (15 points) impaired mobility. 15:10 Patient has been NPO before screening. The patient is alert, able to follow commands. tw2 The patient does not exhibit slurred or garbled speech The patient is not exhibiting difficulty speaking. The patient does not exhibit difficulty understanding words. The patient is able to swallow own secretions with no drooling or need for suction. Patient tolerated one teaspoon of water. No drooling, immediate coughing, gurgling, or clearing of the throat was noted. The patient tolerated 90mL of water. No drooling, immediate coughing, gurgling, or clearing of the throat was noted. The patient passed the bedside swallow screening. Oral medications may be given as ordered. Contact Physician for further diet orders. Provider notified of bedside swallow screening results: Barrera Kim MD. Assessment: 14:22 Reassessment: see triage assessment. tw2 14:42 Reassessment: pt in imaging at this time. tw2 15:25 Reassessment: Patient appears in no apparent distress at this time. Patient and/or tw2 family updated on plan of care and expected duration. Pain level reassessed. Patient is alert, oriented x 3, equal unlabored respirations, skin warm/dry/pink. 16:24 Reassessment: Patient appears in no apparent distress at this time. Patient and/or tw2 family updated on plan of care and expected duration. Pain level reassessed. Patient is alert, oriented x 3, equal unlabored respirations, skin warm/dry/pink. 17:45 Reassessment: Patient appears in no apparent distress at this time. No changes from tw2 previously documented assessment. Patient and/or family updated on plan of care and expected duration. Pain level reassessed. Patient is alert, oriented x 3, equal unlabored respirations, skin warm/dry/pink. 18:24 Reassessment: Patient appears in no apparent distress at this time. No changes from tw2 previously documented assessment. Patient and/or family updated on plan of care and expected duration. Pain level reassessed. Patient is alert, oriented x 3, equal unlabored respirations, skin warm/dry/pink. pt requesting raymond catheter at this time. states "i cant walk", offered pt to use bed lea states "i couldn't go earlier. spoke with dr. pate and he is agreeable. 21:17 Reassessment: Report given to Jeff heparin drip increased to 753 at 2111. ke1 Vital Signs: 14:10 BP 180 / 89; Pulse 101; Resp 18; Temp 98.8(O); Pulse Ox 99% on R/A; Weight 54.43 kg tw2 (R); Height 5 ft. 1 in. (154.94 cm); 15:26 BP 176 / 81; Pulse 90; Resp 17; Pulse Ox 99% on R/A; tw2 16:24 BP 171 / 140; Pulse 94; Resp 16; Pulse Ox 100% on R/A; tw2 17:30 BP 140 / 119; Pulse 94; Resp 19; Pulse Ox 100% on R/A; tw2 18:26 BP 186 / 53; Pulse 97; Resp 22; Pulse Ox 100% on R/A; tw2 14:10 Body Mass Index 22.67 (54.43 kg, 154.94 cm) tw2 NIH Stroke Scale Scores: 14:19 NIHSS Score: 5 [facility] ED Course: 14:12 Bed in low position. Call light in reach. Side rails up X2. lunchroom monitor on. Pulse tw2 ox on. NIBP on. Warm blanket given. 14:13 Patient arrived in ED. tw2 14:13 Barrera Kim MD is Attending Physician. jr11 14:17 Shaye Holland, TIMOTEO is Primary Nurse. tw2 14:18 Triage completed. tw2 14:19 Arm band placed on. tw2 14:21 Maintain EMS IV. Dressing intact. Good blood return noted. Site clean \\T\\ dry. Gauge \\T\\ tw 2 site: 18 g LEFT ac. 14:47 CT Stroke Brain w/o Contrast In Process Unspecified. EDMS 15:53 Stroke CXR 1 View In Process Unspecified. EDMS 16:33 Mayco Pate MD is Hospitalizing Provider. jr11 18:48 Raymond cath inserted, using sterile technique, 18 Fr., by tn, balloon inflated, urine tw2 specimen collected. 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 19:05 Report given to TIMOTEO Gaona. tw2 21:47 No provider procedures requiring assistance completed. Patient admitted, IV remains in ke1 place. Administered Medications: 14:55 Drug: NS 0.9% 1000 ml Route: IV; Rate: 1 bolus; Site: left antecubital; tw2 16:04 Follow up: Response: No adverse reaction; IV Status: Completed infusion; IV Intake: tw2 1000ml 15:32 Drug: Insulin Regular Human 5 units {Co-Signature: yunier (Jenni Hodgson RN).} Route: tw2 IVP; Site: left antecubital; 19:09 Follow up: Response: No adverse reaction tw2 16:07 Drug: Aspirin 325 mg Route: PO; ss 16:17 Follow up: Response: No adverse reaction tw2 16:15 Drug: Heparin (WI Drip) 12 units/kg/hr - (HEParin 50030 units, D5W 500 ml) tw2 {Co-Signature: yunier (Jenni Hodgson RN).} Route: IV; Rate: calculated rate; Site: left antecubital; Medication: 14:46 VIS not applicable for this client. tw2 Point of Care Testing: Blood Glucose: 14:30 Blood Glucose: 403 mg/dL; tw2 14:30 provider notified, iv fluid ordered. tw2 Ranges: Intake: 16:04 IV: 1000ml; Total: 1000ml. tw2 Outcome: 16:34 Decision to Hospitalize by Provider. jr11 21:47 Admitted to Med/surg accompanied by tech. ke1 21:47 Condition: stable 21:47 Instructed on the need for admit. 21:48 Patient left the ED. ke1 NIH Stroke Scale - NIH Stroke Score Date: 10/24/2021 Time: 14:19 Total Score = 5 1a. Level of Consciousness (LOC) - 0(Alert) 1b. Level of Consciousness (LOC) (Month \\T\\ Age) - 0(Both) 1c. LOC Commands (Open \\T\\ Closes Eyes/Special Events Coordinator) - 0(Both) 2. Best Gaze (Lateral Gaze Paresis) - 0(Normal) 3. Visual Field Loss - 0(No visual loss) 4. Facial Palsy - 1(Minor Paralysis) 5a. Left Arm: Motor (10-second hold) - 0(No drift) 5b. Right Arm: Motor (10-second hold) - 0(No drift) 6a. Left Leg: Motor (5-second hold - always test supine) - 1(Drift) 6b. Right Leg: Motor (5-second hold - always test supine) - 0(No drift) 7. Limb Ataxia (finger/nose \\T\\ heel/alvarez - test with eyes open) - 0(Absent) 8. Sensory Loss (pinprick arms/legs/face) - 1(Mild to moderate loss) 9. Best Language: Aphasia (description/naming/reading) - 1(Mild to moderate aphasia) 10. Dysarthria (speech clarity - read or repeat words) - 1(Mild to Moderate) 11. Extinction and Inattention (visual/tactile/auditory/spatial/personal) - 0(No abnormality) Initials: jr11 Signatures: Dispatcher [employer] Jessie Bridges RN RN ss Shaye Holland RN RN tw2 Bon Triplett RN RN ke1 Barrera Kim MD MD jr11 Jenni faye
--- NOTE | 2021-10-24 17:42 | P.HP ---
Certification for Inpatient Patient admitted to: Inpatient With expected LOS: >2 Midnights Practitioner: I am a practitioner with admitting privileges, knowledge of patient current condition, hospital course, and medical plan of care. Services: Services provided to patient in accordance with Admission requirements found in Title 42 Section 412.3 of the Code of Federal Regulations Patient History Date of Service: 10/24/21 Reason for admission: NSTEMI, TIA History of Present Illness: 60 y o female patient medical history significant for tobacco abuse, hypertension, diabetes type 1, hyperlipidemia was evaluated in the emergency room for episode of left-sided weakness. She reported that this been going on for the past 4 days with associated tingling sensation in the left upper extremity. She denied overt episode of chest pain but she has been belching a lot. She denies fever, chills, rigor, nausea, vomiting. She denies changes in vision. She was worked up in the emergency room for suspected stroke and a CT of the head was negative however a troponin was found to be elevated more than 4000. She was deemed to be having NSTEMI so she was admitted for inpatient car e. She was discussed with cardiology team will ask for heparin drip to be started for ACS protocol. Allergies cephalexin [From Keflex] Allergy (Verified 09/22/18 16:00) Anaphylaxis Penicillins Allergy (Verified 09/22/18 16:00) Anaphylaxis Home Medications: Glyburide/Metformin HCl [Glucovance 5-500 mg Tablet] 2 each PO BID 09/22/18 Insulin NPH Hum/Reg Insulin Hm [Humulin 70/30 Kwikpen] 20 unit SQ NOON 09/22/18 Insulin NPH Hum/Reg Insulin Hm [Humulin 70/30 Kwikpen] 40 unit SQ BID 09/22/18 Losartan Potassium 100 mg PO BID 09/22/18 Oxycodone HCl [Oxycontin] 20 mg PO BIDP PRN 09/22/18 - Past Medical/Surgical History Diabetic: Yes -: diabetes -: htn - Social History Alcohol use: No CD- Drugs: No Caffeine use: Yes Review of Systems General: Malaise Eyes: Unremarkable ENT: Unremarkable Cardiovascular: Unremarkable Gastrointestinal: Other (Dyspepsia), Unremarkable Genitourinary: Unremarkable Musculoskeletal: Unremarkable Neurological: Weakness, Numbness Physical Examination - Physical Exam General: Alert, Oriented x3 HEENT: Atraumatic, Normocephalic Neck: Supple Respiratory: Normal air movement Cardiovascular: Regular rate/rhythm, Normal S1 S2 Gastrointestinal: Soft and benign Musculoskeletal: No swelling Neurological: Normal speech, Cranial nerves 3-12 intact, Abnormal strength (Weak in the upper and lower extremity on the left) - Studies Laboratory Data (last 24 hrs) 10/24/21 14:30: PT 12.8 H, INR 1.16, APTT 31.1 10/24/21 14:30: WBC 10.4, Hgb 15.3 H, Hct 46.0 H, Plt Count 184 10/24/21 14:30: Sodium 132 L, Potassium 3.5, BUN 13, Creatinine 0.97, Glucose 399 H Assessment and Plan - Plan NSTEMI: Patient has elevated troponin raising concern for NSTEMI. EKG was not abnormal. Will start heparin drip and monitor on telemetry. Continue as needed morphine for pain control. Will continue aspirin for as primary management of ACS. Will obtain lipid panel to evaluate lipid status. Will obtain echocardiogram for ventricular function assessment. Cardiology to evaluate. TIA/CVA: She does have left-sided weakness raising concern. Will obtain echocardiogram and MRI to evaluate. Will continue aspirin therapy. Neurology to evaluate for management recommendation Diabetes type 1: Will continue patient on sliding scale saline for glucose control History today. we will start long-acting insulin for additional glucose control. Will obtain hemoglobin A1c. Hypertension: We will monitor vital signs per unit protocol and continue antihypertensive medications Hyperlipidemia: Will obtain lipid panel. Continue statin therapy Prophylaxis: Heparin drip to be continued for ACS management and issue suffice for DVT prophylaxis CODE STATUS: Full code. Disposition: Work-up ACS. - Advance Directives Does patient have a Living Will: No Does patient have a Durable POA for Healthcare: No
[2021-10-24 18:44] LABS: Urine Blood Negative (Negative); Urine Glucose 2+ (Negative); Urine Protein Negative (Negative); Urine Specific Gravity 1.015 (1.005-1.030)
[2021-10-24 19:00] LABS: Barbiturates NEGATIVE (NEGATIVE); Benzodiazepines NEGATIVE (NEGATIVE); Cocaine NEGATIVE (NEGATIVE); METHAMPHETAM NEGATIVE (NEGATIVE); Methadone NEGATIVE (NEGATIVE); Opiates NEGATIVE (NEGATIVE); Phencyclidine NEGATIVE (NEGATIVE); THC Cannibis NEGATIVE (NEGATIVE)
--- NOTE | 2021-10-24 19:23 | RAD REPORT ---
EXAM DESCRIPTION: USCarotid Artery Bilateral10/24/2021 7:04 pm CLINICAL HISTORY: TIA COMPARISON: None FINDINGS: The velocity of the right internal carotid artery equals 132 cm/sec. The right ICA/CCA rat io 1.9 The velocity of the left internal carotid artery equals 180 cm/sec. The left ICA/CCA ratio 2.5 Moderate plaque within the left internal carotid artery. This appears to result in an approximately 6 0% stenosis Mild plaque within the right internal carotid artery appears to result in an approximately 30-40% edilberto nosis Mild plaque within the common and external carotid arteries The vertebral arteries demonstrate antegrade flow IMPRESSION: Moderate plaque within the left internal carotid artery NASCET criteria used. Mild 0-49% stenosis Moderate 50-69% stenosis Severe 70-99% stenosis
[2021-10-24] MEDS ORDERED: HEPARIN/D5W 25,000 UNIT/500 ML BAG IV SCH (20:00)
[2021-10-24 20:20] VITALS: BMI 3243.3
[2021-10-24] MEDS ORDERED: PANTOPRAZOLE 40 MG INJ IVP ONE (22:28)
[2021-10-24] MEDS ORDERED: SODIUM CHLORIDE 0.9% 10ML INJ IV PRN (22:28)
[2021-10-24] MEDS: NICOTINE 21 MG/PAT TD SCH (22:55)
[2021-10-24] MEDS: INSULIN GLARGINE 100 UNIT/ML SQ SCH (22:55)
[2021-10-24] MEDS: NA CHLORIDE 0.9% 1,000 ML IV SCH (22:56)
[2021-10-24] MEDS: ONDANSETRON 4 MG/2 ML VIAL IV PRN (23:04)
[2021-10-24] MEDS: HYDRALAZINE HCL 20 MG/ML VIAL IV PRN (23:04)
[2021-10-25] MEDS ORDERED: HEPARIN 5000 UNIT/ML 1 ML VIAL IV SCH (02:00)
[2021-10-25 06:04] LABS: Absolute Lymphocytes (CBC) 3.9 K/uL (0.7-4.9); Lymphocytes % 34.4 % (15.3-44.8); MPV 9.4 fL (7.6-11.3); RBC Red Blood Cell Count 4.96 M/uL (3.86-4.86)
--- NOTE | 2021-10-25 06:17 | EKG ---
Test Date: 2021-10-24 Test Time: 15:35:51 [employer] Specialists: MARLYN MEASUREMENT RESULTS: Intervals: Rate: 92 MN: 134 QRSD: 76 QT: 412 QTc: 509 [place]: P: 71 MN: 134 QRS: 74 T: 75 INTERPRETIVE STATEMENTS: Normal sinus rhythm Prolonged QT Abnormal ECG Compared to ECG 10/24/2021 14:28:08 Prolonged QT interval now present ST (T wave) deviation no longer present Electronically Signed On 10-25-21 06:16:11 CDT by Eh Grant
--- NOTE | 2021-10-25 06:18 | EKG ---
Test Date: 2021-10-24 Test Time: 14:28:08 [employer] Factors Ergonomist: CAROL MEASUREMENT RESULTS: Intervals: Rate: 100 HI: 126 QRSD: 74 QT: 376 QTc: 485 [place]: P: 69 HI: 126 QRS: 65 T: 95 INTERPRETIVE STATEMENTS: Normal sinus rhythm Nonspecific ST abnormality Abnormal ECG Compared to ECG 09/22/2018 16:06:50 ST (T wave) deviation now present Electronically Signed On 10-25-21 06:16:13 CDT by Eh Grant
[2021-10-25 06:26] LABS: Albumin 2.9 g/dL (3.4-5.0); Bilirubin Total 0.3 mg/dL (0.2-1.0); Potassium 3.6 mmol/L (3.5-5.1); Protein, Total 6.5 g/dL (6.4-8.2)
[2021-10-25] MEDS ORDERED: LIDOCAINE 1% 20 ML MDV ONE (06:34)
[2021-10-25] MEDS ORDERED: FENTANYL CITR 100 MCG/2 ML ONE (06:34)
[2021-10-25] MEDS ORDERED: HEPA 1000U/500MLS 1,000 UNIT/500 ML BAG IV ONE (06:34)
[2021-10-25] MEDS ORDERED: MIDAZOLAM HCL 2 MG/2 ML INJ ONE (06:35)
[2021-10-25] MEDS ORDERED: NA CHLORIDE 0.9% 0 ML ONE ×2 (06:35→06:36)
[2021-10-25] MEDS ORDERED: ATROPINE SULF 1 MG/10 ML SYR IV ONE (06:35)
[2021-10-25] MEDS ORDERED: NITROGLYCERIN/D5W 25 MG/250 ML BTL IV ONE (07:18)
[2021-10-25] MEDS ORDERED: NITROGLYCERIN 100 MCG/ML SYR (for cath lab use only) IV ONE (07:18)
[2021-10-25] MEDS ORDERED: HYDRALAZINE HCL 20 MG/ML VIAL ONE (07:33)
[2021-10-25] MEDS ORDERED: LORazepam 2 MG/ML VIAL IV ONE (08:52)
[2021-10-25] MEDS: INSULIN GLARGINE 100 UNIT/ML SQ SCH ×2 (09:00→22:40)
[2021-10-25] MEDS: NICOTINE 21 MG/PAT TD SCH (09:00)
[2021-10-25] MEDS ORDERED: LORazepam 2 MG/ML VIAL ONE (09:01)
--- NOTE | 2021-10-25 09:57 | RAD REPORT ---
EXAM DESCRIPTION: MRI - Brain Wo Cont - 10/25/2021 9:38 am CLINICAL HISTORY: TIA COMPARISON: Head CT October 24, 2021 TECHNIQUE: Axial, sagittal, and coronal magnetic resonance images of the brain were obtained. FINDINGS: Diffusion-weighted/ADC mapping demonstrates multiple areas of increased signal within the medulla and ca measuring up to 7 millimeters. The majority lie within the left aspect of the brainstem althoug h several lie within the right as well. Small area abnormal signal within the right cerebellum. The ventricles are normal caliber. An extra-axial fluid collection is not noted. Fluid within the sinuses/mastoids is not seen IMPRESSION: Multiple areas of acute infarction involving the medulla and ca. Small acute infarct r ight cerebellum
--- NOTE | 2021-10-25 11:07 | ECHO ---
HEIGHT: 5 ft 1 in WEIGHT: 119 lb 15.962 oz DATE OF STUDY: 10/25/[address]: Mayco Pate MD 2-DIMENSIONAL: YES M.MODE: YES DOPPLER: YES COLOR FLOW: YES TDS: NO PORTABLE: YES DEFINITY: NO BUBBLE STUDY: NO DIAGNOSIS: TRANSIENT ISCHEMIC ATTACK, NSTEMI CARDIAC HISTORY: CATHERIZATION:YES SURGERY: NO PROSTHETIC VALVE: NO PACEMAKER: NO MEASUREMENTS (cm) DIASTOLIC (NORMALS) SYSTOLIC (NORMALS) IVSd 1.1 (0.6-1.2) LA Diam 2.6 (1.9-4.0) LVEF 62% LVIDd 2.7 (3.5-5.7) LVIDs 1.8 (2.0-3.5) %FS 32% LVPWd 1.2 (0.6-1.2) Ao Diam 2.0 (2.0-3.7) 2 DIMENSIONAL ASSESSMENT: RIGHT ATRIUM: NORMAL LEFT ATRIUM: NORMAL RIGHT VENTRICLE: NORMAL LEFT VENTRICLE: NORMAL TRICUSPID VALVE: NORMAL MITRAL VALVE: NORMAL PULMONIC VALVE: NORMAL AORTIC VALVE: NORMAL PERICARDIAL EFFUSION: NONE AORTIC ROOT: NORMAL LEFT VENTRICULAR WALL MOTION: NORMAL DOPPLER/COLOR FLOW: NORMAL COMMENTS: NORMAL 2D ECHOCARDIOGRAM WITH DOPPLER. NO WALL MOTION ABNORMALITY. NO EFFUSION. TECHNOLOGIST: Jeniffer KEY
[2021-10-25] MEDS ORDERED: POTASSIUM CL SA 10 MEQ TAB PO ONE (11:14)
[2021-10-25] MEDS: NA CHLORIDE 0.9% 1,000 ML IV SCH ×2 (13:00→16:59)
--- NOTE | 2021-10-25 17:24 | P.PN ---
Subjective Date of Service: 10/25/21 Chief Complaint: NSTEMI, TIA Subjective: No new changes Physical Examination - Vital Signs Temperature: 98.5 F Blood Pressure: 149/66 Pulse: 106 Respirations: 18 Pulse Ox (%): 100 - Physical Exam General: Alert, Oriented x3 HEENT: Atraumatic, Normocephalic Neck: Supple Respiratory: Normal air movement Cardiovascular: Regular rate/rhythm, Normal S1 S2 Gastrointestinal: Soft and benign Musculoskeletal: No swelling Neurological: Abnormal strength (left upper and lower extremity weakness. ) Assessment And Plan - Plan NSTEMI: Cardiology evaluated patient and she had left heart cath done. Multivessel disease found. Recommendation was to have coronary artery bypass graft surgery done. Will transfer to higher level of care. Cardiology following. We will continue heparin drip pending transfer TIA/CVA: MRI of the brain done. Multiple embolic infarcts found in ca, medulla and right cerebellum. Will continue antiplatelet therapy. Will continue heparin. Will continue high-dose statin Diabetes type 1: Will continue patient on sliding scale insulin for glucose control. we will continue long-acting insulin for additional glucose control. Hypertension: We will monitor vital signs per unit protocol and continue antihypertensive medications Hyperlipidemia: Continue statin therapy Prophylaxis: Heparin drip to be continued for ACS management and should suffice for DVT prophylaxis CODE STATUS: Full code. Disposition: For transfer to Higher level care center for CABG surgery.
--- NOTE | 2021-10-25 18:22 | OP ---
Date of Procedure: 10/25/2021 Surgeon: Eh Grant MD Human Resource Officer: Ms. Ela Evans. Procedure: Left heart catheterization, selective coronary arteriogram, and common femoral artery ang iogram. Indication: Non-STEMI. History Of Present Illness: Ms. Barajas is 60, brought to the yard laborer today as an inpatient after she came in yesterday with non-STEMI. Troponin in the 4000. She was prepped and draped in the routine sterile fashion. She was given Versed and fentanyl for sedation. She was given 10 mg of IV hydralaz ine for severe hypertension. A 6-Botswanan sheath introduced in the right common femoral artery success fully. Using the Seldinger technique, a 10 cc of xylocaine. Angiography today showed a complete occ lusion of the SFA. Angio-Seal was used to close the case. A Rosita catheter left and right were us ed to do the diagnostic catheterization. She was found to have an 80% distal left main stenosis, 40% mid LAD stenosis, 90% RCA distal dominant. No complication. Blood Loss: 5 mL. Postoperative Diagnosis: Severe coronary artery disease. Plan: For CABG. We will try to transfer the patient to either [place] or [place] for her surgery. Anesthesia: Total conscious sedation 30 minutes. Production Lapping Machine Operator was myself. GABRIELLE/MARSHA Voice ID: [id number] Report ID: [id number]
[2021-10-25] MEDS ORDERED: ALPRAZOLAM 0.25 MG TABLET PO PRN (22:08)
[2021-10-25] MEDS ORDERED: ACETAMINOPHEN 325 MG TABLET PO PRN (23:45)
[2021-10-25] MEDS: HYDRALAZINE HCL 20 MG/ML VIAL IV PRN (23:52)
[2021-10-26] MEDS: ONDANSETRON 4 MG/2 ML VIAL IV PRN (01:10)
[2021-10-26 06:17] LABS: Potassium 3.6 mmol/L (3.5-5.1)
[2021-10-26] MEDS: NICOTINE 21 MG/PAT TD SCH (08:46)
[2021-10-26] MEDS: INSULIN GLARGINE 100 UNIT/ML SQ SCH (08:47)
[2021-10-26] MEDS ORDERED: FOLIC ACID 1 MG TABLET PO SCH (09:00)
[2021-10-26] MEDS: NA CHLORIDE 0.9% 1,000 ML IV SCH (09:00)
[2021-10-26] MEDS ORDERED: POTASSIUM CL SA 10 MEQ TAB PO ONE (09:00)
--- NOTE | 2021-10-26 10:47 | CON ---
Date of Consultation: 10/25/2021 Reason For Consultation: Non-STEMI. History Of Present Illness: Ms. Barajas is a 60-year-old white woman with history of diabetes, liver c ancer on chemotherapy, came in with atypical chest pain including left chest numbness, left lower ext remity numbness, weakness over the left side. She initially thought she has a stroke, but she had a CT of her head that was negative. Chest x-ray was negative. She was hypertensive at 186/53. Her tr oponin was 4965 with a glucose of 242. Carotid Doppler showed a 60% stenosis. That stenosis was in the left side. Denied PND, orthopnea, pedal edema, palpitation, or syncope. Denied any nausea or vo miting or diaphoresis. Past Medical History: As stated above. Allergies: SHE IS ALLERGIC TO CEPHALEXIN AND PENICILLIN. Medications: At home include insulin and chemotherapy for her liver. She is followed by the [facility] in [place]. Review of Systems: Negative. Social History: Negative. Family History: Noncontributory. Physical Examination: General: She was in sinus rhythm. Blood pressure was 186/53. HEENT: Negative. Neck: Supple with no bruit. Chest: Clear. Cardiac: Revealed a regular rhythm and rate. No murmurs, gallops, or rubs. Abdomen: Benign. Extremities: Revealed no clubbing, cyanosis, or edema. Diagnostic Data: As stated earlier. Echocardiogram was normal. Assessment And Plan: The patient is on heparin. We will hold her heparin and call to the microbiology lab assistant. Catheterization will be done today to define her coronary anatomy. She understands the risks and th e benefits of the procedure and she agrees to proceed. Her liver cancer is being handled by the [facility]. Her diabetes is poorly controlled. Blood pressure is poorly controlled. She should be o n a beta-kam, statin, and aspirin. Her carotid stenosis had to be followed every 6 [place] to [place]. We will see what her CAT shows before making further decisions. GABRIELLE/MARSHA Voice ID: [id number] Report ID: [id number]
[2021-10-26 12:38] VITALS: BP 153/77; TEMP 99.1
--- NOTE | 2021-10-26 12:56 | P.DS ---
Admission Date: 10/24/21 Discharge Date: 10/26/21 Disposition: TRANSFER TO [facility] Discharge Condition: SERIOUS Reason for Admission: NSTEMI, TIA Brief History of Present Illness: 60 y o female patient medical history significant for tobacco abuse, hypertension, diabetes type 1, hyperlipidemia was evaluated in the emergency room for episode of left-sided weakness. She reported that this been going on for the past 4 days with associated tingling sensation in the left upper extremity. She denied overt episode of chest pain but she has been belching a lot. She denies fever, chills, rigor, nausea, vomiting. She denies changes in vision. She was worked up in the emergency room for suspected stroke and a CT of the head was negative however a troponin was found to be elevated more than 4000. She was deemed to be having NSTEMI so she was admitted for inpatient care. She was discussed with cardiology team will ask for heparin drip to be started for ACS protocol. Hospital Course: Patient was admitted to the acute medicine service for management of NSTEMI and she was started on heparin drip per ACS protocol. She also had work-up for possible stroke with carotid Doppler ultrasound echocardiogram and MRI of the brain. 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 She had left heart cath done on the second of admission and she was found to have significant stenosis in multiple vessels which include the right coronary with 90% stenosis left main with 80% stenosis and distal left circumflex with 40% stenosis. She was deemed to be in need of bypass graft surgery and cardiology asked patient to be transferred to a higher level of care for coronary artery bypass surgery. She was accepted at [facility] in [facility] and she is transferred in stable condition for cardiothoracic surgery evaluation for co ronary bypass graft surgery. She was continued on heparin drip since admission admission and initial elevated troponin started to trend down significantly. Vital Signs/Physical Exam: Temp Pulse Resp BP Pulse Ox 99.1 F 95 H 18 153/77 H 98 10/26/21 12:00 10/26/21 12:00 10/26/21 12:00 10/26/21 12:00 10/26/21 12:00 General: Alert, Oriented x3 HEENT: Atraumatic, Normocephalic Neck: Supple Respiratory: Normal air movement Cardiovascular: Regular rate/rhythm, Normal S1 S2 Gastrointestinal: Soft and benign Musculoskeletal: No swelling Neurological: Normal speech Laboratory Data at Discharge: WBC 11.3 K/uL (4.3-10.9) H 10/25/21 05:54 Hgb 14.3 g/dL (12.0-15.0) 10/25/21 05:54 Hct 42.0 % (36.0-45.0) 10/25/21 05:54 Plt Count 165 K/uL (152-406) 10/25/21 05:54 PT 12.8 SECONDS (9.5-12.5) H 10/24/21 14:30 INR 1.16 10/24/21 14:30 APTT 47.0 SECONDS (24.3-36.9) H 10/26/21 11:33 Sodium 135 mmol/L (136-145) L 10/26/21 05:45 Potassium 3.6 mmol/L (3.5-5.1) 10/26/21 05:45 BUN 9 mg/dL (7-18) 10/26/21 05:45 Creatinine 0.75 mg/dL (0.55-1.3) 10/26/21 05:45 Glucose 190 mg/dL (74-106) H 10/26/21 05:45 Total Bilirubin 0.3 mg/dL (0.2-1.0) 10/25/21 05:54 AST 14 U/L (15-37) L 10/25/21 05:54 ALT 18 U/L (12-78) 10/25/21 05:54 Alkaline Phosphatase 80 U/L (45-117) 10/25/21 05:54 Triglycerides 128 mg/dL (<150) 10/25/21 05:54 Cholesterol 158 mg/dL (<200) 10/25/21 05:54 HDL Cholesterol 34 mg/dL (40-60) L 10/25/21 05:54 Cholesterol/HDL Ratio 4.65 10/25/21 05:54 Home Medications: Insulin NPH Hum/Reg Insulin Hm [Humulin 70/30 Kwikpen] 40 unit SQ BID 09/22/18 Insulin -Regular Human [Novolin -R*] See Protocol SQ ACHS 10/24/21 ALPRAZolam [Xanax*] 0.25 mg PO TID PRN tab 10/26/21 Acetaminophen [Tylenol*] 650 mg PO Q6H PRN tab 10/26/21 Atorvastatin Calcium [Lipitor] 40 mg PO BEDTIME tab 10/26/21 Hydralazine [Apresoline*] 10 mg IV Q6HP PRN vial 10/26/21 Insulin Glargine,Hum.rec.anlog [Semglee] 15 unit SQ BID ml 10/26/21 Nicotine [Nicoderm*] 21 mg TD DAILY patch.td24 10/26/21 Ondansetron [Zofran*] 4 mg IV Q6HP PRN vial 10/26/21 Pharmacy Consult 1 ea XX DAILYPRN PRN each 10/26/21 Diet: AHA Activity: Bedrest Followup: NONE,NONE [Primary Care Provider] -
[2021-10-26 13:22] VITALS: O2SAT 98
[2021-10-26] MEDS ORDERED: ATORVASTATIN 40 MG TAB PO SCH (21:00)
== END 2021-10-26 14:20 | disposition short-term general hospital (02) | DRG 280 ==
LOC: ER 14:11 → ERHOLD 16:49 → 2ND 21:31
PROVIDERS: ADMIT Internal Medicine Nephrology; ATTEND Internal Medicine Nephrology
PROC: B2011ZZ Plain Radiography of Multiple Coronary Arteries using Low Osmolar Contrast (ICD-10-PCS; principal; 2021-10-25)
PROC: B40F1ZZ Plain Radiography of Right Lower Extremity Arteries using Low Osmolar Contrast (ICD-10-PCS; 2021-10-25)
DX: I21.4 Non-ST elevation (NSTEMI) myocardial infarction (principal); I63.9 Cerebral infarction, unspecified; G81.94 Hemiplegia, unspecified affecting left nondominant side; C22.8 Malignant neoplasm of liver, primary, unspecified as to type; I10 Essential (primary) hypertension; R29.705 NIHSS score 5; E78.5 Hyperlipidemia, unspecified; Z79.4 Long term (current) use of insulin; Z88.0 Allergy status to penicillin; E10.65 Type 1 diabetes mellitus with hyperglycemia; Z20.822 Contact with and (suspected) exposure to COVID-19
CPT/HCPCS: 36415; 51702; 70450; 70551; 71045; 80048; 80053; 80061; 80307; 81003; 82947; 84484; 85025; 85610; 85730; 93005; 93306; 93454; 93880; 96361; 96374; 96375; 99285; C1760; C1893; C9113; G0269; J0360; J0583; J1644; J1815; J2250; J2405; J3010; J7030; J7040; Q9966; U0003

== ENCOUNTER 2021-12-25 12:51 | Emergency (ER) | payer OTHER, SELFPAY ==
--- OUTSIDE RECORDS SUMMARY | 2021-12-25 12:59 | XMS REPORT | Continuity of Care Document ---
:1960 Author Organization [facility] t Address [address] [place] [address] Care Team Providers Name Role Phone ANGEL STARK Attending Clinician Unavailable MATEO REZA Attending Clinician Unavailable JOSE GARCIA Attending Clinician Unavailable BRADLEY MEADOWS Attending Clinician Unavailable MATEO REZA Admitting Clinician Unavailable Payers Payer Name Policy Type Policy Number Effective Date Expiration Date S ource SELF PAY OP [id number] 2021 2021 DIAGNSTC IMGING 00:00:00 00:00:00 PKG Problems This patient has no known problems. Allergies, Adverse Reactions, Alerts Allergy Allergy Status Severity Reaction(s) Onset Inactive Treating Comm ents Source Name Type Date Date Clinician CIPROFLO Allergy Active High [facility]aphylaxis [facility] Allergy Active High Anaphylaxis 2021-[address] [facility] Medications This patient has no known medications. Vital Signs Vital Name Observation Time Observation Value Comments Source HEIGHT 2021-12-10 13:02:00 157.5 cm WEIGHT 2021-11-24 06:00:00 60.56 kg WEIGHT 2021-11-15 06:00:00 61.2 kg WEIGHT 2021-11-13 04:00:00 59.2 kg WEIGHT 2021-11-12 06:00:00 59.6 kg WEIGHT 2021-11-11 08:00:00 61.689 kg WEIGHT 2021-11-07 06:00:00 61.236 kg HEIGHT 2021-10-26 17:00:00 157.5 cm WEIGHT 2021-10-26 17:00:00 57.788 kg WEIGHT 2021-11-24 06:00:00 60.56 kg WEIGHT 2021-11-15 06:00:00 61.2 kg WEIGHT 2021-11-13 04:00:00 59.2 kg WEIGHT 2021-11-12 06:00:00 59.6 kg WEIGHT 2021-11-11 08:00:00 61.689 kg WEIGHT 2021-11-07 06:00:00 61.236 kg HEIGHT 2021-10-26 17:00:00 157.5 cm WEIGHT 2021-10-26 17:00:00 57.788 kg Procedures This patient has no known procedures. Encounters Start End Encounter Admission Attending Care Care Encounter Source Date/Time Date/Time Type Type Clinicians Facility Department ID 2021-12-20 2021-12-20 Outpatient ROSAURA BILLINGS [facility] [id number] [facility] 00:00:00 00:00:00 ANGEL 2021-12-17 2021-12-17 Outpatient MATEO SEALS [facility] SLE [id number] [facility] 00:00:00 00:00:00 2021-12-10 2021-12-10 Outpatient ROSAURA HERNANDEZ [facility] [id number] [facility] 12:14:27 23:59:00 JOSE 2021-12-10 2021-12-10 Outpatient ROSAURA HERNANDEZ [facility] [id number] [facility] 12:01:55 12:01:55 JOSE 2021-12-10 2021-12-10 [facility] [place] [facility] [id number] [facility] 00:00:00 00:00:00 ANGEL 2021-11-28 2021-11-28 [facility] [place] [facility] [id number] [facility] 00:00:00 00:00:00 ANGEL 2021-10-26 2021-11-26 Inpatient UR ABDIEL [facility] Surgery [id number] [facility] 15:33:00 19:00:00 BRADLEY 2021-11-15 2021-11-15 [facility] [place] [facility] [facility] [id number] [facility] 00:00:00 00:00:00 ANGEL 2021-11-062021-11-06 Outpatient KWABENA STARK [facility] [id number] [facility] 00[facility]00:00 00:00:00 ERROLJONE 2021-10-26 2021-10-26 Outpatient [facility] [id number] [facility] 00:00:00 23:59:00 [place] read of Medicin e Results Test Description Test Time Test Comments Results Result Sourc e Comments RAD, CHEST, 2 2021-12-10 Reason for VIEWS 13:31:00 Exam:->[facility] 1960 Sex: F *FINAL REPORT Exam: RAD, CHEST, 2 VIEWSDate: 12/10/2021 1:31 PM Indication: Postoperative Comparison: CXR 11/20/2021 FINDINGS: Lines/Tubes:None Lungs:The lungs are well-inflated. There is perihilar fullness and indistinctness of the pulmonary vasculature. Left basilar opacities, most likely subsegmental atelectasis. Pleura:No pleural effusion. No pneumothorax. Heart/Mediastinum:Th e cardiomediastinal silhouette is normal in size and contour. Status post CABG. Bones/Soft Tissues: No acute osseous injury. Sternotomy wires in place. Abdomen: No free air below the diaphragm. IMPRESSION:Mild pulmonary interstitial edema. Left basilar opacities, most likely subsegmental atelectasis. Signed: Heriberto Che MDReport Verified Date/Time: 12/10/2021 13:31:50 US CULTURE + SMEAR 2021-12-08 01:57:08 Test Item Value Reference Range Interpretation Comme nts CULTURE (BEAKER) (test code = 1095) No fungus isolated in 28 days FUNGUS SMEAR (BEAKER) (test code = 1406) No fungi seen POCT-GLUCOSE [id number] 07:07:16 Test Item Value Reference Range Interpretation Comments POC-GLUCOSE METER 139 mg/dL 70-110 H : [facility] (BEAKER) (test code = JAVAN Gallo [facility], 1538) [id number]: Quantitative Associate/Techni shasha ID = [id number] for JEREMI DIAS POCT-GLUCOSE [id number] 21:17:27 Test Item Value Reference Range Interpretation Comments POC-GLUCOSE METER 231 mg/dL 70-110 H : [facility] (BEAKER) (test code = SANDRAWA Cleo [facility], 1538) [address]: Quantitative Associate/Techni shasha ID = [id number] for SHOAIB ALEXIS SARS-COV2/RT-PCR ([facility])2021-11-25 11:12:44 Test Item Value Reference Range Interpretation Comments SARS-COV2/RT-PCR (test Negative Not Detected, Negative, code = 6877541) See external report for linked test SARS-COV-2 PERFORMING LAB [facility] (test code = 8095635) Negative result for this test determines that SARS-CoV-2 RNA was not present in the specimen above the Limit of Detection (LOD). However, Negative results do not preclude SARS-CoV-2 infection and should not be used as the sole basis for treatment or patient management decisions. Negative results must be combined with clinical observations, patient history, and epidemiological information. A false negative result may occur if a specimen is improperly collected, transported or handled. A false negative result should be considered if patient's recent exposures or clinical presentation indicate that COVID-19 (SARS-CoV-2) is likely and diagnostic tests for other causes of illness are negative. Re-testing should be considered in cases of suspected false negatives.The limit of detection for this assay is 800 copies/mL.This SARS CoV-2 test is a real-time RT-PCR test intended for the qualitative detection of nucleic acid from SARS-CoV-2 in a nasopharyngeal swab specimen collected from individuals suspected of COVID-19 by their healthcare provider.This test has not been Food and Drug Administration (FDA) cleared or approved. This is a modified version of an approved Emergency Use Authorization (EUA) and is in the process of review by the FDA. Once authorized by the FDA, the issued EUA will be effective until the declaration that circumstances exist justifying the authorization of the emergency use ofin vitro diagnostic tests for detection and/or diagnosis of COVID-19 is terminated under Section 564(b)(2) of the Act or the EUA is revoked under Section 564(g) of the Act.Fact Sheet for Healthcare Prov iders:https://www.[employer]/sites/default/files/product/documents/Fact_Sheet_HC _Vfuxoyatd_Ubpb_WTIG-BgC-4.pdfFact Sheet for Healthcare Patients:https://www.[employer]/sites/default/files/product/docume nts/Spal_Yyczn_Euriaqjv_Njrt_DNMC-QhP-5.pdfPerforming Laboratory:[place] [address] [place], [place] [address]KAUQS METABOLIC PANEL 2021-11-25 08:21:30 Test Item Value Reference Range Interpretation Comments SODIUM (BEAKER) (test 137 meq/L 136-145 code = 381) POTASSIUM (BEAKER) 3.6 meq/L 3.5-5.1 (test code = 379) CHLORIDE (BEAKER) 100 meq/L 98-107 (test code = 382) CO2 (BEAKER) (test 30 meq/L 22-29 H code = 355) BLOOD UREA NITROGEN 8 mg/dL 7-21 (BEAKER) (test code = 354) CREATININE (BEAKER) 0.58 mg/dL 0.57-1.25 (test code = 358) GLUCOSE RANDOM 137 mg/dL 70-105 H (BEAKER) (test code = 652) CALCIUM (BEAKER) 8.6 mg/dL 8.4-10.2 (test code = 697) EGFR (BEAKER) (test INSUFFIC IENT CLINICAL code = 1092) DATA TO CALCULA TE ESTIMATED GFR. Quantitative Associate ID - [id number] 08:16:48 Test Item Value Reference Range Interpretation Comments MAGNESIUM (BEAKER) (test code = 1.5 mg/dL 1.6-2.6 L 627) Quantitative Associate ID - DBCBC W/PLT COUNT & AUTO [id number] 07:25:55 Test Item Value Reference Range Interpretation Comments WHITE BLOOD CELL COUNT (BEAKER) 10.7 K/ L 3.5-10.5 H (test code = 775) RED BLOOD CELL COUNT (BEAKER) 3.25 M/ L 3.93-5.22 L (test code = 761) HEMOGLOBIN (BEAKER) (test code = 9.5 GM/DL 11.2-15.7 L 410) HEMATOCRIT (BEAKER) (test code = 30.2 % 34.1-44.9 L 411) MEAN CORPUSCULAR VOLUME (BEAKER) 92.9 fL 79.4-94.8 (test code = 753) MEAN CORPUSCULAR HEMOGLOBIN 29.2 pg 25.6-32.2 (BEAKER) (test code = 751) MEAN CORPUSCULAR HEMOGLOBIN CONC 31.5 GM/DL 32.2-35.5 L (BEAKER) (test code = 752) RED CELL DISTRIBUTION WIDTH 14.9 % 11.7-14.4 H (BEAKER) (test code = 412) PLATELET COUNT (BEAKER) (test 258 K/CU MM 150-450 code = 756) MEAN PLATELET VOLUME (BEAKER) 10.6 fL 9.4-12.3 (test code = 754) NUCLEATED RED BLOOD CELLS 0 /100 WBC 0-0 (BEAKER) (test code = 413) NEUTROPHILS RELATIVE PERCENT 66 % (BEAKER) (test code = 429) LYMPHOCYTES RELATIVE PERCENT 24 % (BEAKER) (test code = 430) MONOCYTES RELATIVE PERCENT 8 % (BEAKER) (test code = 431) EOSINOPHILS RELATIVE PERCENT 1 % (BEAKER) (test code = 432) BASOPHILS RELATIVE PERCENT 1 % (BEAKER) (test code = 437) NEUTROPHILS ABSOLUTE COUNT 7.04 K/ L 1.56-6.13 H (BEAKER) (test code = 670) LYMPHOCYTES ABSOLUTE COUNT 2.60 K/ L 1.18-3.74 (BEAKER) (test code = 414) MONOCYTES ABSOLUTE COUNT (BEAKER) 0.87 K/ L 0.24-0.36 H (test code = 415) EOSINOPHILS ABSOLUTE COUNT 0.12 K/ L 0.04-0.36 (BEAKER) (test code = 416) BASOPHILS ABSOLUTE COUNT (BEAKER) 0.05 K/ L 0.01-0.08 (test code = 417) IMMATURE GRANULOCYTES-RELATIVE 1 % 0-1 PERCENT (BEAKER) (test code = 2801) POCT-GLUCOSE [id number] 21:29:22 Test Item Value Reference Range Interpretation Comments POC-GLUCOSE METER 144 mg/dL 70-110 H : TESTED A T [facility] 6720 (BEAKER) (test code = [facility], 1538) [address]: Quantitative Associate/Techni shasha ID = [id number] for ROBERTO FARR POCT-GLUCOSE [id number] 09:59:48 Test Item Value Reference Range Interpretation Comments POC-GLUCOSE METER 156 mg/dL 70-110 H : TESTED A T [facility] 6720 (BEAKER) (test code = [facility], 1538) [address]: Quantitative Associate/Techni shasha ID = [id number] for Melody Conte BASIC METABOLIC [id number] 07:53:11 Test Item Value Reference Range Interpretation Comments SODIUM (BEAKER) (test 138 meq/L 136-145 code = 381) POTASSIUM (BEAKER) 3.5 meq/L 3.5-5.1 (test code = 379) CHLORIDE (BEAKER) 102 meq/L 98-107 (test code = 382) CO2 (BEAKER) (test 28 meq/L 22-29 code = 355) BLOOD UREA NITROGEN 9 mg/dL 7-21 (BEAKER) (test code = 354) CREATININE (BEAKER) 0.57 mg/dL 0.57-1.25 (test code = 358) GLUCOSE RANDOM 127 mg/dL 70-105 H (BEAKER) (test code = 652) CALCIUM (BEAKER) 8.6 mg/dL 8.4-10.2 (test code = 697) EGFR (BEAKER) (test INSUFFIC IENT CLINICAL code = 1092) DATA TO CALCULA TE ESTIMATED GFR. Quantitative Associate WILL NAVA [id number] 07:51:50 Test Item Value Reference Range Interpretation Comments MAGNESIUM (BEAKER) (test code = 1.5 mg/dL 1.6-2.6 L 627) Quantitative Associate ID Celestina NAVA MCBC W/PLT COUNT & AUTO [id number] 06:02:44 Test Item Value Reference Range Interpretation Comments WHITE BLOOD CELL COUNT (BEAKER) 11.0 K/ L 3.5-10.5 H (test code = 775) RED BLOOD CELL COUNT (BEAKER) 3.26 M/ L 3.93-5.22 L (test code = 761) HEMOGLOBIN (BEAKER) (test code = 9.6 GM/DL 11.2-15.7 L 410) HEMATOCRIT (BEAKER) (test code = 29.9 % 34.1-44.9 L 411) MEAN CORPUSCULAR VOLUME (BEAKER) 91.7 fL 79.4-94.8 (test code = 753) MEAN CORPUSCULAR HEMOGLOBIN 29.4 pg 25.6-32.2 (BEAKER) (test code = 751) MEAN CORPUSCULAR HEMOGLOBIN CONC 32.1 GM/DL 32.2-35.5 L (BEAKER) (test code = 752) RED CELL DISTRIBUTION WIDTH 14.8 % 11.7-14.4 H (BEAKER) (test code = 412) PLATELET COUNT (BEAKER) (test 283 K/CU MM 150-450 code = 756) MEAN PLATELET VOLUME (BEAKER) 11.1 fL 9.4-12.3 (test code = 754) NUCLEATED RED BLOOD CELLS 0 /100 WBC 0-0 (BEAKER) (test code = 413) NEUTROPHILS RELATIVE PERCENT 66 % (BEAKER) (test code = 429) LYMPHOCYTES RELATIVE PERCENT 23 % (BEAKER) (test code = 430) MONOCYTES RELATIVE PERCENT 9 % (BEAKER) (test code = 431) EOSINOPHILS RELATIVE PERCENT 1 % (BEAKER) (test code = 432) BASOPHILS RELATIVE PERCENT 0 % (BEAKER) (test code = 437) NEUTROPHILS ABSOLUTE COUNT 7.24 K/ L 1.56-6.13 H (BEAKER) (test code = 670) LYMPHOCYTES ABSOLUTE COUNT 2.54 K/ L 1.18-3.74 (BEAKER) (test code = 414) MONOCYTES ABSOLUTE COUNT (BEAKER) 0.94 K/ L 0.24-0.36 H (test code = 415) EOSINOPHILS ABSOLUTE COUNT 0.13 K/ L 0.04-0.36 (BEAKER) (test code = 416) BASOPHILS ABSOLUTE COUNT (BEAKER) 0.03 K/ L 0.01-0.08 (test code = 417) IMMATURE GRANULOCYTES-RELATIVE 1 % 0-1 PERCENT (BEAKER) (test code = 2801) POCT-GLUCOSE [id number] 22:19:04 Test Item Value Reference Range Interpretation Comments POC-GLUCOSE METER 229 mg/dL 70-110 H : TESTED A T [facility] 6720 (BEAKER) (test code = [facility] [place], 1538) [address]: Quantitative Associate/Techni shasha ID = [id number] for AG U, WATT POCT-GLUCOSE [id number] 07:44:17 Test Item Value Reference Range Interpretation Comments POC-GLUCOSE METER 119 mg/dL 70-110 H : TESTED A T [facility] 6720 (BEAKER) (test code = [facility], 1538) 85291: Quantitative Associate/Techni shasha ID = [id number] for So lis, Raquel BASIC METABOLIC [id number] 07:01:40 Test Item Value Reference Range Interpretation Comments SODIUM (BEAKER) (test 134 meq/L 136-145 L code = 381) POTASSIUM (BEAKER) 2.8 meq/L 3.5-5.1 L (test code = 379) CHLORIDE (BEAKER) 96 meq/L 98-107 L (test code = 382) CO2 (BEAKER) (test 29 meq/L 22-29 code = 355) BLOOD UREA NITROGEN 11 mg/dL 7-21 (BEAKER) (test code = 354) CREATININE (BEAKER) 0.56 mg/dL 0.57-1.25 L (test code = 358) GLUCOSE RANDOM 121 mg/dL 70-105 H (BEAKER) (test code = 652) CALCIUM (BEAKER) 8.7 mg/dL 8.4-10.2 (test code = 697) EGFR (BEAKER) (test INSUFFIC IENT CLINICAL code = 1092) DATA TO CALCULA TE ESTIMATED GFR. Quantitative Associate ID - BRANDY [id number] 06:57:25 Test Item Value Reference Range Interpretation Comments MAGNESIUM (BEAKER) (test code = 1.5 mg/dL 1.6-2.6 L 627) Quantitative Associate ID Celestina NAVA MCBC W/PLT COUNT & AUTO [id number] 05:54:21 Test Item Value Reference Range Interpretation Comments WHITE BLOOD CELL COUNT (BEAKER) 11.6 K/ L 3.5-10.5 H (test code = 775) RED BLOOD CELL COUNT (BEAKER) 3.09 M/ L 3.93-5.22 L (test code = 761) HEMOGLOBIN (BEAKER) (test code = 9.3 GM/DL 11.2-15.7 L 410) HEMATOCRIT (BEAKER) (test code = 28.0 % 34.1-44.9 L 411) MEAN CORPUSCULAR VOLUME (BEAKER) 90.6 fL 79.4-94.8 (test code = 753) MEAN CORPUSCULAR HEMOGLOBIN 30.1 pg 25.6-32.2 (BEAKER) (test code = 751) MEAN CORPUSCULAR HEMOGLOBIN CONC 33.2 GM/DL 32.2-35.5 (BEAKER) (test code = 752) RED CELL DISTRIBUTION WIDTH 14.6 % 11.7-14.4 H (BEAKER) (test code = 412) PLATELET COUNT (BEAKER) (test 273 K/CU MM 150-450 code = 756) MEAN PLATELET VOLUME (BEAKER) 11.4 fL 9.4-12.3 (test code = 754) NUCLEATED RED BLOOD CELLS 0 /100 WBC 0-0 (BEAKER) (test code = 413) NEUTROPHILS RELATIVE PERCENT 66 % (BEAKER) (test code = 429) LYMPHOCYTES RELATIVE PERCENT 23 % (BEAKER) (test code = 430) MONOCYTES RELATIVE PERCENT 8 % (BEAKER) (test code = 431) EOSINOPHILS RELATIVE PERCENT 1 % (BEAKER) (test code = 432) BASOPHILS RELATIVE PERCENT 0 % (BEAKER) (test code = 437) NEUTROPHILS ABSOLUTE COUNT 7.68 K/ L 1.56-6.13 H (BEAKER) (test code = 670) LYMPHOCYTES ABSOLUTE COUNT 2.70 K/ L 1.18-3.74 (BEAKER) (test code = 414) MONOCYTES ABSOLUTE COUNT (BEAKER) 0.93 K/ L 0.24-0.36 H (test code = 415) EOSINOPHILS ABSOLUTE COUNT 0.16 K/ L 0.04-0.36 (BEAKER) (test code = 416) BASOPHILS ABSOLUTE COUNT (BEAKER) 0.03 K/ L 0.01-0.08 (test code = 417) IMMATURE GRANULOCYTES-RELATIVE 0 % 0-1 PERCENT (BEAKER) (test code = 2801) POCT-GLUCOSE [id number] 20:47:34 Test Item Value Reference Range Interpretation Comments POC-GLUCOSE METER 267 mg/dL 70-110 H : TESTED A T [facility] 6720 (BEAKER) (test code = [facility], 1538) [address]: Quantitative Associate/Techni shasha ID = [id number] for Gemini Valencia BASIC METABOLIC [id number] 09:56:08 Test Item Value Reference Range Interpretation Comments SODIUM (BEAKER) (test 137 meq/L 136-145 code = 381) POTASSIUM (BEAKER) 3.3 meq/L 3.5-5.1 L (test code = 379) CHLORIDE (BEAKER) 99 meq/L 98-107 (test code = 382) CO2 (BEAKER) (test 30 meq/L 22-29 H code = 355) BLOOD UREA NITROGEN 13 mg/dL 7-21 (BEAKER) (test code = 354) CREATININE (BEAKER) 0.64 mg/dL 0.57-1.25 (test code = 358) GLUCOSE RANDOM 176 mg/dL 70-105 H (BEAKER) (test code = 652) CALCIUM (BEAKER) 8.7 mg/dL 8.4-10.2 (test code = 697) EGFR (BEAKER) (test INSUFFIC IENT CLINICAL code = 1092) DATA TO CALCULA TE ESTIMATED GFR. Quantitative Associate ID - BRANDY [id number] 09:50:11 Test Item Value Reference Range Interpretation Comments MAGNESIUM (BEAKER) (test code = 1.6 mg/dL 1.6-2.6 627) Quantitative Associate ID - BRANDY MPOCT-GLUCOSE [id number] 08:01:54 Test Item Value Reference Range Interpretation Comments POC-GLUCOSE METER 161 mg/dL 70-110 H : TESTED A T [facility] 6720 (BEAKER) (test code = [facility], 1538) [id number]: Quantitative Associate/Techni shasha ID = [id number] for Darlene aHrrington CBC W/PLT COUNT & AUTO [id number] 06:08:15 Test Item Value Reference Range Interpretation Comments WHITE BLOOD CELL COUNT (BEAKER) 10.6 K/ L 3.5-10.5 H (test code = 775) RED BLOOD CELL COUNT (BEAKER) 3.18 M/ L 3.93-5.22 L (test code = 761) HEMOGLOBIN (BEAKER) (test code = 9.3 GM/DL 11.2-15.7 L 410) HEMATOCRIT (BEAKER) (test code = 28.8 % 34.1-44.9 L 411) MEAN CORPUSCULAR VOLUME (BEAKER) 90.6 fL 79.4-94.8 (test code = 753) MEAN CORPUSCULAR HEMOGLOBIN 29.2 pg 25.6-32.2 (BEAKER) (test code = 751) MEAN CORPUSCULAR HEMOGLOBIN CONC 32.3 GM/DL 32.2-35.5 (BEAKER) (test code = 752) RED CELL DISTRIBUTION WIDTH 14.6 % 11.7-14.4 H (BEAKER) (test code = 412) PLATELET COUNT (BEAKER) (test 280 K/CU MM 150-450 code = 756) MEAN PLATELET VOLUME (BEAKER) 11.0 fL 9.4-12.3 (test code = 754) NUCLEATED RED BLOOD CELLS 0 /100 WBC 0-0 (BEAKER) (test code = 413) NEUTROPHILS RELATIVE PERCENT 64 % (BEAKER) (test code = 429) LYMPHOCYTES RELATIVE PERCENT 25 % (BEAKER) (test code = 430) MONOCYTES RELATIVE PERCENT 9 % (BEAKER) (test code = 431) EOSINOPHILS RELATIVE PERCENT 1 % (BEAKER) (test code = 432) BASOPHILS RELATIVE PERCENT 0 % (BEAKER) (test code = 437) NEUTROPHILS ABSOLUTE COUNT 6.74 K/ L 1.56-6.13 H (BEAKER) (test code = 670) LYMPHOCYTES ABSOLUTE COUNT 2.63 K/ L 1.18-3.74 (BEAKER) (test code = 414) MONOCYTES ABSOLUTE COUNT (BEAKER) 0.99 K/ L 0.24-0.36 H (test code = 415) EOSINOPHILS ABSOLUTE COUNT 0.13 K/ L 0.04-0.36 (BEAKER) (test code = 416) BASOPHILS ABSOLUTE COUNT (BEAKER) 0.02 K/ L 0.01-0.08 (test code = 417) IMMATURE GRANULOCYTES-RELATIVE 0 % 0-1 PERCENT (BEAKER) (test code = 2801) POCT-GLUCOSE [id number] 21:55:47 Test Item Value Reference Range Interpretation Comments POC-GLUCOSE METER 224 mg/dL 70-110 H : TESTED A T [facility] 6720 (BEAKER) (test code = [facility], 1538) [id number]: Quantitative Associate/Techni shasha ID = [id number] for Gemini Valencia POCT-GLUCOSE [id number] 08:11:09 Test Item Value Reference Range Interpretation Comments POC-GLUCOSE METER 179 mg/dL 70-110 H : TESTED A T [facility] 6720 (BEAKER) (test code = [facility], 1538) [id number]: Quantitative Associate/Techni shasha ID = [id number] for SHAWN VARELA BASIC METABOLIC [id number] 06:16:36 Test Item Value Reference Range Interpretation Comments SODIUM (BEAKER) (test 138 meq/L 136-145 code = 381) POTASSIUM (BEAKER) 3.6 meq/L 3.5-5.1 (test code = 379) CHLORIDE (BEAKER) 99 meq/L 98-107 (test code = 382) CO2 (BEAKER) (test 31 meq/L 22-29 H code = 355) BLOOD UREA NITROGEN 14 mg/dL 7-21 (BEAKER) (test code = 354) CREATININE (BEAKER) 0.60 mg/dL 0.57-1.25 (test code = 358) GLUCOSE RANDOM 204 mg/dL 70-105 H (BEAKER) (test code = 652) CALCIUM (BEAKER) 8.9 mg/dL 8.4-10.2 (test code = 697) EGFR (BEAKER) (test INSUFFIC IENT CLINICAL code = 1092) DATA TO CALCULA TE ESTIMATED GFR. Quantitative Associate ID - NÉSTOR [id number] 06:10:20 Test Item Value Reference Range Interpretation Comments MAGNESIUM (BEAKER) (test code = 1.5 mg/dL 1.6-2.6 L 627) Quantitative Associate ID - NÉSTOR LCBC W/PLT COUNT & AUTO [id number] 05:31:53 Test Item Value Reference Range Interpretation Comments WHITE BLOOD CELL COUNT (BEAKER) 11.8 K/ L 3.5-10.5 H (test code = 775) RED BLOOD CELL COUNT (BEAKER) 3.11 M/ L 3.93-5.22 L (test code = 761) HEMOGLOBIN (BEAKER) (test code = 9.4 GM/DL 11.2-15.7 L 410) HEMATOCRIT (BEAKER) (test code = 28.4 % 34.1-44.9 L 411) MEAN CORPUSCULAR VOLUME (BEAKER) 91.3 fL 79.4-94.8 (test code = 753) MEAN CORPUSCULAR HEMOGLOBIN 30.2 pg 25.6-32.2 (BEAKER) (test code = 751) MEAN CORPUSCULAR HEMOGLOBIN CONC 33.1 GM/DL 32.2-35.5 (BEAKER) (test code = 752) RED CELL DISTRIBUTION WIDTH 14.8 % 11.7-14.4 H (BEAKER) (test code = 412) PLATELET COUNT (BEAKER) (test 289 K/CU MM 150-450 code = 756) MEAN PLATELET VOLUME (BEAKER) 11.0 fL 9.4-12.3 (test code = 754) NUCLEATED RED BLOOD CELLS 0 /100 WBC 0-0 (BEAKER) (test code = 413) NEUTROPHILS RELATIVE PERCENT 63 % (BEAKER) (test code = 429) LYMPHOCYTES RELATIVE PERCENT 25 % (BEAKER) (test code = 430) MONOCYTES RELATIVE PERCENT 11 % (BEAKER) (test code = 431) EOSINOPHILS RELATIVE PERCENT 1 % (BEAKER) (test code = 432) BASOPHILS RELATIVE PERCENT 0 % (BEAKER) (test code = 437) NEUTROPHILS ABSOLUTE COUNT 7.43 K/ L 1.56-6.13 H (BEAKER) (test code = 670) LYMPHOCYTES ABSOLUTE COUNT 2.90 K/ L 1.18-3.74 (BEAKER) (test code = 414) MONOCYTES ABSOLUTE COUNT (BEAKER) 1.26 K/ L 0.24-0.36 H (test code = 415) EOSINOPHILS ABSOLUTE COUNT 0.13 K/ L 0.04-0.36 (BEAKER) (test code = 416) BASOPHILS ABSOLUTE COUNT (BEAKER) 0.01 K/ L 0.01-0.08 (test code = 417) IMMATURE GRANULOCYTES-RELATIVE 1 % 0-1 PERCENT (BEAKER) (test code = 2801) SARS-COV2/RT-PCR ([facility])2021-11-21 04:46:57 Test Item Value Reference Range Interpretation Comments SARS-COV2/RT-PCR (test Negative Not Detected, Negative, code = 5531058) See external report for linked test SARS-COV-2 PERFORMING LAB [facility] (test code = 8023190) Negative result for this test determines that SARS-CoV-2 RNA was not present in the specimen above the Limit of Detection (LOD). However, Negative results do not preclude SARS-CoV-2 infection and should not be used as the sole basis for treatment or patient management decisions. Negative results must be combined with clinical observations, patient history, and epidemiological information. A false negative result may occur if a specimen is improperly collected, transported or handled. A false negative result should be considered if patient's recent exposures or clinical presentation indicate that COVID-19 (SARS-CoV-2) is likely and diagnostic tests for other causes of illness are negative. Re-testing should be considered in cases of suspected false negatives.The limit of detection for this assay is 800 copies/mL.This SARS CoV-2 test is a real-time RT-PCR test intended for the qualitative detection of nucleic acid from SARS-CoV-2 in a nasopharyngeal swab specimen collected from individuals suspected of COVID-19 by their healthcare provider.This test has not been Food and Drug Administration (FDA) cleared or approved. This is a modified version of an approved Emergency Use Authorization (EUA) and is in the process of review by the FDA. Once authorized by the FDA, the issued EUA will be effective until the declaration that circumstances exist justifying the authorization of the emergency use ofin vitro diagnostic tests for detection and/or diagnosis of COVID-19 is terminated under Section 564(b)(2) of the Act or the EUA is revoked under Section 564(g) of the Act.Fact Sheet for Healthcare Prov iders:https://www.[employer]/sites/default/files/product/documents/Fact_Sheet_HC _Tifrmorwy_Cdiy_VINW-GfU-4.pdfFact Sheet for Healthcare Patients:https://www.[employer]/sites/default/files/product/docume nts/Ybcj_Zgjdq_Mmfxrgvp_Irxj_NEKI-IdO-5.pdfPerforming Laboratory:[place] [address] [place], [place] [address]WIET-OSDMAWT METER 2021-11-20 21:10:05 Test Item Value Reference Range Interpretation Comments POC-GLUCOSE METER 340 mg/dL 70-110 H : TESTED A T [facility] 6720 (BEAKER) (test code = JAVAN Gallo [facility], 1538) [address]: Quantitative Associate/Techni shasha ID = [id number] for PE JOLANTA LOWERYLO BLOOD [id number] 18:00:47 Test Item Value Reference Range Interpretation Comments CULTURE (BEAKER) (test No growth in 5 days code = 1095) BLOOD [id number] 18:00:47 Test Item Value Reference Range Interpretation Comments CULTURE (BEAKER) (test No growth in 5 days code = 1095) POCT-GLUCOSE [id number] 08:12:57 Test Item Value Reference Range Interpretation Comments POC-GLUCOSE METER 170 mg/dL 70-110 H : TESTED A T [facility] 6720 (BEAKER) (test code = SANDRAWA Cleo [facility], 1538) [address]: Quantitative Associate/Techni shasha ID = [id number] for SHAWN VARELA RAD, CHEST, 1 VIEW, NON [id number] 07:47:00while patient is intubated or has chest tubes.Reason for exam:->Status post CV SurgeryShould thisbe performed at the bedside?->Yes [facility] 1960 Sex: FFINAL REPORT RAD, CHEST, 1 VIEW, NON DEPT INDICATION: Status post CV Surgery COMPARISON: Prior day's exam FINDINGS: Portable frontal view of the chest. IMPRESSION: Support Lines: Sternotomy wires. Lungs and pleura: Platelike atelectasis within the right lower lung. Small left effusion. Nosignificant pneumothorax. Heart and mediastinum: Stable contours. Stable surgical changes. Additional findings: None. Signed: Ela Marshall Verified Date/Time: 11/20/2021 07:47:14 Reading Location: [facility] Radiology Reading Room REHENSIVE METABOLIC [id number] 05:50:44 Test Item Value Reference Range Interpretation Comments TOTAL PROTEIN 6.3 gm/dL 6.0-8.3 (BEAKER) (test code = 770) ALBUMIN (BEAKER) 3.1 g/dL 3.5-5.0 L (test code = 1145) ALKALINE PHOSPHATASE 73 U/L 40-150 (BEAKER) (test code = 346) BILIRUBIN TOTAL 0.6 mg/dL 0.2-1.2 (BEAKER) (test code = 377) SODIUM (BEAKER) (test 140 meq/L 136-145 code = 381) POTASSIUM (BEAKER) 3.4 meq/L 3.5-5.1 L (test code = 379) CHLORIDE (BEAKER) 100 meq/L 98-107 (test code = 382) CO2 (BEAKER) (test 31 meq/L 22-29 H code = 355) BLOOD UREA NITROGEN 13 mg/dL 7-21 (BEAKER) (test code = 354) CREATININE (BEAKER) 0.59 mg/dL 0.57-1.25 (test code = 358) GLUCOSE RANDOM 160 mg/dL 70-105 H (BEAKER) (test code = 652) CALCIUM (BEAKER) 9.2 mg/dL 8.4-10.2 (test code = 697) AST (SGOT) (BEAKER) 31 U/L 5-34 (test code = 353) ALT (SGPT) (BEAKER) 26 U/L 6-55 (test code = 347) EGFR (BEAKER) (test INSUFFIC IENT CLINICAL code = 1092) DATA TO CALCULA TE ESTIMATED GFR. Quantitative Associate ID - PIAYA [id number] 05:50:24 Test Item Value Reference Range Interpretation Comments FERRITIN (BEAKER) (test code = 172.83 ng/mL 5.00-275.00 361) Quantitative Associate ID Celestina PALM [id number] 05:43:11 Test Item Value Reference Range Interpretation Comments MAGNESIUM (BEAKER) (test code = 1.7 mg/dL 1.6-2.6 627) Quantitative Associate WILL PARRA, TIBC, % SAT. (WITHOUT FERRITIN)2021-11-20 05:39:29 Test Item Value Reference Range Interpretation Comments IRON (BEAKER) (test code = 547) 22.0 ug/dL 40.0-160.0 L TOTAL IRON BINDING CAPACITY 251 ug/dL 250-450 (BEAKER) (test code = 769) IRON % SATURATION (2) (BEAKER) 9 % 20-55 L (test code = 2590) Quantitative Associate ID Celestina PALM LCBC W/PLT COUNT & AUTO [id number] 05:30:13 Test Item Value Reference Range Interpretation Comments WHITE BLOOD CELL COUNT (BEAKER) 13.7 K/ L 3.5-10.5 H (test code = 775) RED BLOOD CELL COUNT (BEAKER) 3.47 M/ L 3.93-5.22 L (test code = 761) HEMOGLOBIN (BEAKER) (test code = 10.2 GM/DL 11.2-15.7 L 410) HEMATOCRIT (BEAKER) (test code = 31.9 % 34.1-44.9 L 411) MEAN CORPUSCULAR VOLUME (BEAKER) 91.9 fL 79.4-94.8 (test code = 753) MEAN CORPUSCULAR HEMOGLOBIN 29.4 pg 25.6-32.2 (BEAKER) (test code = 751) MEAN CORPUSCULAR HEMOGLOBIN CONC 32.0 GM/DL 32.2-35.5 L (BEAKER) (test code = 752) RED CELL DISTRIBUTION WIDTH 14.9 % 11.7-14.4 H (BEAKER) (test code = 412) PLATELET COUNT (BEAKER) (test 296 K/CU MM 150-450 code = 756) MEAN PLATELET VOLUME (BEAKER) 11.5 fL 9.4-12.3 (test code = 754) NUCLEATED RED BLOOD CELLS 0 /100 WBC 0-0 (BEAKER) (test code = 413) NEUTROPHILS RELATIVE PERCENT 68 % (BEAKER) (test code = 429) LYMPHOCYTES RELATIVE PERCENT 20 % (BEAKER) (test code = 430) MONOCYTES RELATIVE PERCENT 10 % (BEAKER) (test code = 431) EOSINOPHILS RELATIVE PERCENT 1 % (BEAKER) (test code = 432) BASOPHILS RELATIVE PERCENT 0 % (BEAKER) (test code = 437) NEUTROPHILS ABSOLUTE COUNT 9.32 K/ L 1.56-6.13 H (BEAKER) (test code = 670) LYMPHOCYTES ABSOLUTE COUNT 2.77 K/ L 1.18-3.74 (BEAKER) (test code = 414) MONOCYTES ABSOLUTE COUNT (BEAKER) 1.41 K/ L 0.24-0.36 H (test code = 415) EOSINOPHILS ABSOLUTE COUNT 0.13 K/ L 0.04-0.36 (BEAKER) (test code = 416) BASOPHILS ABSOLUTE COUNT (BEAKER) 0.02 K/ L 0.01-0.08 (test code = 417) IMMATURE GRANULOCYTES-RELATIVE 1 % 0-1 PERCENT (BEAKER) (test code = 2801) POCT-GLUCOSE [id number] 21:45:17 Test Item Value Reference Range Interpretation Comments POC-GLUCOSE METER 202 mg/dL 70-110 H : Notified RN/MD: (BEAKER) (test code = TESTED AT [facility] 4229 2043) [facility], [address]: Quantitative Associate/Techni shasha ID = [id number] for ROBERTO FARR BASIC METABOLIC [id number] 07:47:27 Test Item Value Reference Range Interpretation Comments SODIUM (BEAKER) (test 138 meq/L 136-145 code = 381) POTASSIUM (BEAKER) 3.5 meq/L 3.5-5.1 (test code = 379) CHLORIDE (BEAKER) 101 meq/L 98-107 (test code = 382) CO2 (BEAKER) (test 29 meq/L 22-29 code = 355) BLOOD UREA NITROGEN 11 mg/dL 7-21 (BEAKER) (test code = 354) CREATININE (BEAKER) 0.54 mg/dL 0.57-1.25 L (test code = 358) GLUCOSE RANDOM 165 mg/dL 70-105 H (BEAKER) (test code = 652) CALCIUM (BEAKER) 8.8 mg/dL 8.4-10.2 (test code = 697) EGFR (BEAKER) (test INSUFFIC IENT CLINICAL code = 1092) DATA TO CALCULA TE ESTIMATED GFR. Quantitative Associate ID - NÉSTOR [id number] 07:27:14 Test Item Value Reference Range Interpretation Comments MAGNESIUM (BEAKER) (test code = 1.7 mg/dL 1.6-2.6 627) Quantitative Associate ID - NÉSTOR L(CELLAVISION MANUAL DIFF)2021-11-19 07:22:36 Test Item Value Reference Range Interpretation Comments NEUTROPHILS - REL 81 % (CELLAVISION)(BEAKER) (test code = 2816) LYMPHOCYTES - REL 12 % (CELLAVISION)(BEAKER) (test code = 2817) MONOCYTES - REL 6 % (CELLAVISION)(BEAKER) (test code = 2818) NEUTROPHILS - ABS 13.37 K/ul 1.56-6.13 H (CELLAVISION)(BEAKER) (test code = 2830) LYMPHOCYTES - ABS 1.98 K/ul 1.18-3.74 (CELLAVISION)(BEAKER) (test code = 2831) MONOCYTES - ABS 0.99 K/uL 0.24-0.36 H (CELLAVISION)(BEAKER) (test code = 2832) TOTAL COUNTED (BEAKER) (test code 100 = 1351) RBC MORPHOLOGY (BEAKER) (test code Normal = 762) GIANT PLATELETS (BEAKER) (test Present code = 313) HYPERSEGMENTATION Present (CELLAVISION)(BEAKER) (test code = 3445) ARTIFACT (CELLAVISION)(BEAKER) Present (test code = 3432) PLATELET CONCENTRATION Adequate (CELLAVISION)(BEAKER) (test code = 3438) Quantitative Associate ID - joan Hassan comments: Slide comments:CBC W/PLT COUNT & AUTO [id number] 07:22:35 Test Item Value Reference Range Interpretation Comments WHITE BLOOD CELL COUNT (BEAKER) 16.5 K/ L 3.5-10.5 H (test code = 775) RED BLOOD CELL COUNT (BEAKER) 3.34 M/ L 3.93-5.22 L (test code = 761) HEMOGLOBIN (BEAKER) (test code = 9.9 GM/DL 11.2-15.7 L 410) HEMATOCRIT (BEAKER) (test code = 30.6 % 34.1-44.9 L 411) MEAN CORPUSCULAR VOLUME (BEAKER) 91.6 fL 79.4-94.8 (test code = 753) MEAN CORPUSCULAR HEMOGLOBIN 29.6 pg 25.6-32.2 (BEAKER) (test code = 751) MEAN CORPUSCULAR HEMOGLOBIN CONC 32.4 GM/DL 32.2-35.5 (BEAKER) (test code = 752) RED CELL DISTRIBUTION WIDTH 14.6 % 11.7-14.4 H (BEAKER) (test code = 412) PLATELET COUNT (BEAKER) (test 291 K/CU MM 150-450 code = 756) MEAN PLATELET VOLUME (BEAKER) 11.2 fL 9.4-12.3 (test code = 754) NUCLEATED RED BLOOD CELLS 0 /100 WBC 0-0 (BEAKER) (test code = 413) POCT-GLUCOSE [id number] 05:46:39 Test Item Value Reference Range Interpretation Comments POC-GLUCOSE METER 162 mg/dL 70-110 H : TESTED A T [facility] 6720 (BEAKER) (test code = JAVAN Cleo [facility], 1538) [address]: Quantitative Associate/Techni shasha ID = [id number] for CASIMIRO HURTADO SE RAD, CHEST, 1 VIEW, NON [id number] 05:28:00while patient is intubated or has chest tubes.Reason for exam:->Status post CV SurgeryShould thisbe performed at the bedside?->Yes [facility] 1960 Sex: FFINAL REPORT Portable chest Compared to 11/18/2021. HISTORY: Status post CABG surgery. FINDINGS: Heart is moderately enlarged. Status post median sternotomy. No pneumothorax. Bibasilar atelectatic changes. No pleural effusions. IMPRESSION: Bibasilar atelectatic changes. Signed: Liban Sterling Verified Date/Time: 11/19/2021 05:28:41 POCT-GLUCOSE [id number] 21:32:24 Test Item Value Reference Range Interpretation Comments POC-GLUCOSE METER 241 mg/dL 70-110 H : TESTED A T [facility] 6720 (BEAKER) (test code = JAVAN [place], 1538) [address]: Quantitative Associate/Techni shasha ID = [id number] for CASIMIRO HURTADO SE CBC W/PLT COUNT & AUTO [id number] 07:12:24 Test Item Value Reference Range Interpretation Comments WHITE BLOOD CELL COUNT (BEAKER) 19.3 K/ L 3.5-10.5 H (test code = 775) RED BLOOD CELL COUNT (BEAKER) 3.28 M/ L 3.93-5.22 L (test code = 761) HEMOGLOBIN (BEAKER) (test code = 9.7 GM/DL 11.2-15.7 L 410) HEMATOCRIT (BEAKER) (test code = 29.8 % 34.1-44.9 L 411) MEAN CORPUSCULAR VOLUME (BEAKER) 90.9 fL 79.4-94.8 (test code = 753) MEAN CORPUSCULAR HEMOGLOBIN 29.6 pg 25.6-32.2 (BEAKER) (test code = 751) MEAN CORPUSCULAR HEMOGLOBIN CONC 32.6 GM/DL 32.2-35.5 (BEAKER) (test code = 752) RED CELL DISTRIBUTION WIDTH 14.1 % 11.7-14.4 (BEAKER) (test code = 412) PLATELET COUNT (BEAKER) (test 257 K/CU MM 150-450 code = 756) MEAN PLATELET VOLUME (BEAKER) 11.1 fL 9.4-12.3 (test code = 754) NUCLEATED RED BLOOD CELLS 0 /100 WBC 0-0 (BEAKER) (test code = 413) (CELLAVISION MANUAL DIFF)2021-11-18 07:12:24 Test Item Value Reference Range Interpretation Comments NEUTROPHILS - REL 81 % (CELLAVISION)(BEAKER) (test code = 2816) LYMPHOCYTES - REL 11 % (CELLAVISION)(BEAKER) (test code = 2817) MONOCYTES - REL 6 % (CELLAVISION)(BEAKER) (test code = 2818) BASOPHILS - REL 1 % (CELLAVISION)(BEAKER) (test code = 2820) NEUTROPHILS - ABS 15.63 K/ul 1.56-6.13 H (CELLAVISION)(BEAKER) (test code = 2830) LYMPHOCYTES - ABS 2.12 K/ul 1.18-3.74 (CELLAVISION)(BEAKER) (test code = 2831) MONOCYTES - ABS 1.16 K/uL 0.24-0.36 H (CELLAVISION)(BEAKER) (test code = 2832) BASOPHILS - ABS 0.19 K/uL 0.01-0.08 H (CELLAVISION)(BEAKER) (test code = 2835) TOTAL COUNTED (BEAKER) (test code 100 = 1351) CLUMPED PLATELETS (BEAKER) (test Present code = 436) GIANT PLATELETS (BEAKER) (test Present code = 313) HYPERSEGMENTATION Present (CELLAVISION)(BEAKER) (test code = 3445) HYPOCHROMIA (BEAKER) (test code = 1+ few 963) ARTIFACT (CELLAVISION)(BEAKER) Present (test code = 3432) PLATELET CONCENTRATION Adequate (CELLAVISION)(BEAKER) (test code = 3438) Quantitative Associate ID - Crib Tender (created by the system)User comments: Slide comments:BASIC METABOLIC [id number] 05:10:40 Test Item Value Reference Range Interpretation Comments SODIUM (BEAKER) (test 137 meq/L 136-145 code = 381) POTASSIUM (BEAKER) 3.9 meq/L 3.5-5.1 (test code = 379) CHLORIDE (BEAKER) 101 meq/L 98-107 (test code = 382) CO2 (BEAKER) (test 27 meq/L 22-29 code = 355) BLOOD UREA NITROGEN 10 mg/dL 7-21 (BEAKER) (test code = 354) CREATININE (BEAKER) 0.52 mg/dL 0.57-1.25 L (test code = 358) GLUCOSE RANDOM 189 mg/dL 70-105 H (BEAKER) (test code = 652) CALCIUM (BEAKER) 8.5 mg/dL 8.4-10.2 (test code = 697) EGFR (BEAKER) (test INSUFFIC IENT CLINICAL code = 1092) DATA TO CALCULA TE ESTIMATED GFR. Quantitative Associate ID - PIDAMIÁN [id number] 04:03:28 Test Item Value Reference Range Interpretation Comments MAGNESIUM (BEAKER) (test code = 1.8 mg/dL 1.6-2.6 627) Quantitative Associate ID - NÉSTOR [id number] 04:03:28 Test Item Value Reference Range Interpretation Comments PHOSPHORUS (BEAKER) (test code = 3.4 mg/dL 2.3-4.7 604) Quantitative Associate ID - NÉSTOR LCALCIUM, [id number] 03:49:50 Test Item Value Reference Range Interpretation Comments CALCIUM IONIZED (BEAKER) (test 1.12 mmol/L 1.12-1.27 code = 698) PH, BLOOD (BEAKER) (test code = 7.43 1810) POCT-GLUCOSE [id number] 03:18:34 Test Item Value Reference Range Interpretation Comments POC-GLUCOSE METER 177 mg/dL 70-110 H : TESTED A T [facility] 6720 (BEAKER) (test code = JAVAN [place], 1538) [address]: Quantitative Associate/Techni shasha ID = [id number] for Marj Seay RAD, CHEST, 1 VIEW, NON [id number] 03:18:00while patient is intubated or has chest tubes.Reason for exam:->Status post CV SurgeryShould thisbe performed at the bedside?->Yes [facility] 1960 Sex: FFINAL REPORT Portable chest Compared to 2021. HISTORY: Shortness of breath status post CT surgery. FINDINGS: The heart is moderately enlarged. Status post median sternotomy. Bibasilar atelectatic changes. No pneumothorax. IMPRESSION: Stable findings. Signed: Liban Sterlingeport Verified Date/Time: 11/18/2021 03:18:40 BASIC METABOLIC [id number] 17:34:58 Test Item Value Reference Range Interpretation Comments SODIUM (BEAKER) (test 138 meq/L 136-145 code = 381) POTASSIUM (BEAKER) 3.4 meq/L 3.5-5.1 L (test code = 379) CHLORIDE (BEAKER) 95 meq/L 98-107 L (test code = 382) CO2 (BEAKER) (test 33 meq/L 22-29 H code = 355) BLOOD UREA NITROGEN 11 mg/dL 7-21 (BEAKER) (test code = 354) CREATININE (BEAKER) 0.54 mg/dL 0.57-1.25 L (test code = 358) GLUCOSE RANDOM 112 mg/dL 70-105 H (BEAKER) (test code = 652) CALCIUM (BEAKER) 8.6 mg/dL 8.4-10.2 (test code = 697) EGFR (BEAKER) (test INSUFFIC IENT CLINICAL code = 1092) DATA TO CALCULA TE ESTIMATED GFR. Quantitative Associate ID - PIDAMIÁN [id number] 17:14:16 Test Item Value Reference Range Interpretation Comments MAGNESIUM (BEAKER) (test code = 1.7 mg/dL 1.6-2.6 627) Quantitative Associate ID - NÉSTOR [id number] 17:14:16 Test Item Value Reference Range Interpretation Comments PHOSPHORUS (BEAKER) (test code = 3.9 mg/dL 2.3-4.7 604) Quantitative Associate ID - NÉSTOR LCALCIUM, [id number] 16:46:42 Test Item Value Reference Range Interpretation Comments CALCIUM IONIZED (BEAKER) (test 1.07 mmol/L 1.12-1.27 L code = 698) PH, BLOOD (AKER) (test code = 7.39 1810) POCT-GLUCOSE [id number] 16:27:00 Test Item Value Reference Range Interpretation Comments POC-GLUCOSE METER 135 mg/dL 70-110 H : Notified RN/MD: ([facility]) (test code = TESTED AT [facility] 6720 1538) [facility], [address]: Quantitative Associate/Techni shasha ID = [id number] for Qu reshi, Asma POCT-GLUCOSE [id number] 11:25:51 Test Item Value Reference Range Interpretation Comments POC-GLUCOSE METER 241 mg/dL 70-110 H : TESTED A T [facility] 67 [facility] (test code = [facility] Cleo [facility], 1538) [address]: Quantitative Associate/Techni shasha ID = [id number] for Qu reshi, Asma [id number] 10:44:15 Test Item Value Reference Range Interpretation Comments D-DIMER QUANTITATIVE ([facility]) 1.91 MG/L FEU <0.50 H (test code = 671) Intended Use: The D-Dimer Assay can be used to aid in the diagnosis of Deep Vein Thrombosis (DVT) and Pulmonary Embolism Disease (PED).In patients with low pre- test probability, various studies concerning STA Liatest D-dimer test have reported that with a cutoff value of 0.50 MG/L FEU, the Negative Predictive Value (NPV) regarding the exclusion of thrombosis is within 95-100% range. [id number] 10:42:16 Test Item Value Reference Range Interpretation Comments PROTIME (BEAKER) (test 15.3 seconds 11.9-14.2 H code = 759) INR (BEAKER) (test 1.23 See_Comment [Automat ed code = 370) message] The sy stem which generated this result transmitted reference range : <=5.90. The reference range was not used to interpret this result as normal/abnormal . PARTIAL THROMBOPLASTIN 43.0 seconds 22.5-36.0 H TIME (BEAKER) (test code = 760) RECOMMENDED COUMADIN/WARFARIN INR THERAPY RANGESSTANDARD DOSE: 2.0 - 3.0 Includes: PROPHYLAXIS for venous thrombosis, systemic embolization; TREATMENT for venous thrombosis and/or pulmonary embolus.HIGH RISK: Target INR is 2.5-3.5 for patients with mechanical heart valves.[id number] 10:41:34 Test Item Value Reference Range Interpretation Comments FIBRINOGEN LEVEL (BEAKER) (test 439 mg/dl 225-434 H code = 658) HEPATIC FUNCTION [id number] 08:33:13 Test Item Value Reference Range Interpretation Comments TOTAL PROTEIN (BEAKER) (test code = 5.2 gm/dL 6.0-8.3 L 770) ALBUMIN (BEAKER) (test code = 1145) 2.8 g/dL 3.5-5.0 L BILIRUBIN TOTAL (BEAKER) (test code 0.6 mg/dL 0.2-1.2 = 377) BILIRUBIN DIRECT (BEAKER) (test 0.3 mg/dL 0.1-0.5 code = 706) ALKALINE PHOSPHATASE (BEAKER) (test 60 U/L 40-150 code = 346) AST (SGOT) (BEAKER) (test code = 21 U/L 5-34 353) ALT (SGPT) (BEAKER) (test code = 26 U/L 6-55 347) Quantitative Associate ID - NÉSTOR [id number] 08:33:13 Test Item Value Reference Range Interpretation Comments LIPASE (BEAKER) (test code = 749) 70 U/L 8-78 Quantitative Associate ID - NÉSTOR L(CELLAVISION MANUAL DIFF)2021 07:33:54 Test Item Value Reference Range Interpretation Comments NEUTROPHILS - REL 80 % (CELLAVISION)(BEAKER) (test code = 2816) LYMPHOCYTES - REL 11 % (CELLAVISION)(BEAKER) (test code = 2817) MONOCYTES - REL 6 % (CELLAVISION)(BEAKER) (test code = 2818) EOSINOPHILS - REL 3 % (CELLAVISION)(BEAKER) (test code = 2819) NEUTROPHILS - ABS 15.76 K/ul 1.56-6.13 H (CELLAVISION)(BEAKER) (test code = 2830) LYMPHOCYTES - ABS 2.17 K/ul 1.18-3.74 (CELLAVISION)(BEAKER) (test code = 2831) MONOCYTES - ABS 1.18 K/uL 0.24-0.36 H (CELLAVISION)(BEAKER) (test code = 2832) EOSINOPHILS - ABS 0.59 K/uL 0.04-0.36 H (CELLAVISION)(BEAKER) (test code = 2834) TOTAL COUNTED (BEAKER) (test code 100 = 1351) WBC MORPHOLOGY (BEAKER) (test code Normal = 487) PLT MORPHOLOGY (BEAKER) (test code Normal = 486) POLYCHROMATOPHILLIC RBCS(BEAKER) 1+ few (test code = 478) BASOPHILIC STIPPLING (BEAKER) Present (test code = 473) ARTIFACT (CELLAVISION)(BEAKER) Present (test code = 3432) PLATELET CONCENTRATION Adequate (CELLAVISION)(BEAKER) (test code = 3438) Quantitative Associate ID - Gregoria Munoz comments: Slide comments:CBC W/PLT COUNT & AUTO [id number] 07:33:53 Test Item Value Reference Range Interpretation Comments WHITE BLOOD CELL COUNT (BEAKER) 19.7 K/ L 3.5-10.5 H (test code = 775) RED BLOOD CELL COUNT (BEAKER) 3.28 M/ L 3.93-5.22 L (test code = 761) HEMOGLOBIN (BEAKER) (test code = 9.6 GM/DL 11.2-15.7 L 410) HEMATOCRIT (BEAKER) (test code = 30.0 % 34.1-44.9 L 411) MEAN CORPUSCULAR VOLUME (BEAKER) 91.5 fL 79.4-94.8 (test code = 753) MEAN CORPUSCULAR HEMOGLOBIN 29.3 pg 25.6-32.2 (BEAKER) (test code = 751) MEAN CORPUSCULAR HEMOGLOBIN CONC 32.0 GM/DL 32.2-35.5 L (BEAKER) (test code = 752) RED CELL DISTRIBUTION WIDTH 14.2 % 11.7-14.4 (BEAKER) (test code = 412) PLATELET COUNT (BEAKER) (test 281 K/CU MM 150-450 code = 756) MEAN PLATELET VOLUME (BEAKER) 10.6 fL 9.4-12.3 (test code = 754) NUCLEATED RED BLOOD CELLS 0 /100 WBC 0-0 (BEAKER) (test code = 413) POCT-GLUCOSE [id number] 06:34:59 Test Item Value Reference Range Interpretation Comments POC-GLUCOSE METER 141 mg/dL 70-110 H : TESTED A T [facility] 6720 (BEAKER) (test code = [facility] [place], 1538) [address]: Quantitative Associate/Techni shasha ID = [id number] for Luisana Travis BASIC METABOLIC [id number] 05:45:12 Test Item Value Reference Range Interpretation Comments SODIUM (BEAKER) (test 136 meq/L 136-145 code = 381) POTASSIUM (BEAKER) 3.3 meq/L 3.5-5.1 L (test code = 379) CHLORIDE (BEAKER) 102 meq/L 98-107 (test code = 382) CO2 (BEAKER) (test 26 meq/L 22-29 code = 355) BLOOD UREA NITROGEN 11 mg/dL 7-21 (BEAKER) (test code = 354) CREATININE (BEAKER) 0.53 mg/dL 0.57-1.25 L (test code = 358) GLUCOSE RANDOM 117 mg/dL 70-105 H (BEAKER) (test code = 652) CALCIUM (BEAKER) 7.6 mg/dL 8.4-10.2 L (test code = 697) EGFR (BEAKER) (test INSUFFIC IENT CLINICAL code = 1092) DATA TO CALCULA TE ESTIMATED GFR. Quantitative Associate ID - PIAYA LPOCT-GLUCOSE [id number] 05:04:46 Test Item Value Reference Range Interpretation Comments POC-GLUCOSE METER 127 mg/dL 70-110 H : TESTED A T [facility] 6720 (BEAKER) (test code = [facility] [place], 1538) [address]: Quantitative Associate/Techni shasha ID = [id number] for Marj Seay RAD, CHEST, 1 VIEW, NON [id number] 04:46:00while patient is intubated or has chest tubes.Reason for exam:->Status post CV SurgeryShould thisbe performed at the bedside?->Yes [facility] 1960 Sex: FFINAL REPORT CLINICAL INDICATION: Status post CV Surgery Comparison: 11/16/2021 The cardiomediastinal contours are stable. Central pulmonary vascular prominence and bilateral parenchymal andpleural opacities are unchanged. There is no pneumothorax. Signed: Kingsley Garcia MDReport Verified Date/Time: 2021 04:46:02 [id number] 04:31:57 Test Item Value Reference Range Interpretation Comments MAGNESIUM (BEAKER) (test code = 1.7 mg/dL 1.6-2.6 627) Quantitative Associate ID - PIAYA [id number] 04:31:57 Test Item Value Reference Range Interpretation Comments PHOSPHORUS (BEAKER) (test code = 4.8 mg/dL 2.3-4.7 H 604) Quantitative Associate ID - PIAYA LCALCIUM, [id number] 03:28:35 Test Item Value Reference Range Interpretation Comments CALCIUM IONIZED (BEAKER) (test 1.17 mmol/L 1.12-1.27 code = 698) PH, BLOOD (BEAKER) (test code = 7.40 1810) SARS-COV2/RT-PCR ([facility])2021 01:59:41 Test Item Value Reference Range Interpretation Comments SARS-COV2/RT-PCR (test Negative Not Detected, Negative, code = 1869560) See external report for linked test SARS-COV-2 PERFORMING LAB [facility] (test code = 8023210) Negative result for this test determines that SARS-CoV-2 RNA was not present in the specimen above the Limit of Detection (LOD). However, Negative results do not preclude SARS-CoV-2 infection and should not be used as the sole basis for treatment or patient management decisions. Negative results must be combined with clinical observations, patient history, and epidemiological information. A false negative result may occur if a specimen is improperly collected, transported or handled. A false negative result should be considered if patient's recent exposures or clinical presentation indicate that COVID-19 (SARS-CoV-2) is likely and diagnostic tests for other causes of illness are negative. Re-testing should be considered in cases of suspected false negatives.The limit of detection for this assay is 800 copies/mL.This SARS CoV-2 test is a real-time RT-PCR test intended for the qualitative detection of nucleic acid from SARS-CoV-2 in a nasopharyngeal swab specimen collected from individuals suspected of COVID-19 by their healthcare provider.This test has not been Food and Drug Administration (FDA) cleared or approved. This is a modified version of an approved Emergency Use Authorization (EUA) and is in the process of review by the FDA. Once authorized by the FDA, the issued EUA will be effective until the declaration that circumstances exist justifying the authorization of the emergency use ofin vitro diagnostic tests for detection and/or diagnosis of COVID-19 is terminated under Section 564(b)(2) of the Act or the EUA is revoked under Section 564(g) of the Act.Fact Sheet for Healthcare Prov iders:https://www.[employer]/sites/default/files/product/documents/Fact_Sheet_HC _Urxghnrla_Yixs_YWJC-QcW-4.pdfFact Sheet for Healthcare Patients:https://www.[employer]/sites/default/files/product/docume nts/Srzp_Khlyn_Nervwkpb_Skdq_KVMV-EaQ-9.pdfPerforming Laboratory:[facility], [place] [address]YZEAV METABOLIC PANEL 2021-11-16 17:07:20 Test Item Value Reference Range Interpretation Comments SODIUM (BEAKER) (test 137 meq/L 136-145 code = 381) POTASSIUM (BEAKER) 3.6 meq/L 3.5-5.1 (test code = 379) CHLORIDE (BEAKER) 97 meq/L 98-107 L (test code = 382) CO2 (BEAKER) (test 32 meq/L 22-29 H code = 355) BLOOD UREA NITROGEN 15 mg/dL 7-21 (BEAKER) (test code = 354) CREATININE (BEAKER) 0.63 mg/dL 0.57-1.25 (test code = 358) GLUCOSE RANDOM 205 mg/dL 70-105 H (BEAKER) (test code = 652) CALCIUM (BEAKER) 8.7 mg/dL 8.4-10.2 (test code = 697) EGFR (BEAKER) (test INSUFFIC IENT CLINICAL code = 1092) DATA TO CALCULA TE ESTIMATED GFR. Quantitative Associate ID - JOSETTE [id number] 17:07:15 Test Item Value Reference Range Interpretation Comments MAGNESIUM (BEAKER) (test code = 1.8 mg/dL 1.6-2.6 627) Quantitative Associate ID - JOSETTE [id number] 17:07:15 Test Item Value Reference Range Interpretation Comments PHOSPHORUS (BEAKER) (test code = 4.3 mg/dL 2.3-4.7 604) Quantitative Associate ID - JOSETTE MCALCIUM, [id number] 16:51:01 Test Item Value Reference Range Interpretation Comments CALCIUM IONIZED (BEAKER) (test 1.10 mmol/L 1.12-1.27 L code = 698) PH, BLOOD (BEAKER) (test code = 7.41 1810) POCT-GLUCOSE [id number] 16:16:17 Test Item Value Reference Range Interpretation Comments POC-GLUCOSE METER 172 mg/dL 70-110 H : Notified RN/MD: (KRYSTAL) (test code = TESTED AT [place] [address]) [facility], [address]: Quantitative Associate/Techni shasha ID = [id number] for Po ss, Zaina POCT-GLUCOSE [id number] 11:07:50 Test Item Value Reference Range Interpretation Comments POC-GLUCOSE METER 219 mg/dL 70-110 H : Notified RN/: (KRYSTAL) (test code = TESTED AT [place] [address]) [facility], [address]: Quantitative Associate/Techni shasha ID = [id number] for Po ss, Zaina (CELLAVISION MANUAL DIFF)2021-11-16 07:33:45 Test Item Value Reference Range Interpretation Comments NEUTROPHILS - REL 80 % (CELLAVISION)(BEAKER) (test code = 2816) LYMPHOCYTES - REL 18 % (CELLAVISION)(BEAKER) (test code = 2817) MONOCYTES - REL 2 % (CELLAVISION)(BEAKER) (test code = 2818) NEUTROPHILS - ABS 15.12 K/ul 1.56-6.13 H (CELLAVISION)(BEAKER) (test code = 2830) LYMPHOCYTES - ABS 3.40 K/ul 1.18-3.74 (CELLAVISION)(BEAKER) (test code = 2831) MONOCYTES - ABS 0.38 K/uL 0.24-0.36 H (CELLAVISION)(BEAKER) (test code = 2832) TOTAL COUNTED (BEAKER) (test code 100 = 1351) RBC MORPHOLOGY (BEAKER) (test code Normal = 762) WBC MORPHOLOGY (BEAKER) (test code Normal = 487) PLT MORPHOLOGY (BEAKER) (test code Normal = 486) ARTIFACT (CELLAVISION)(BEAKER) Present (test code = 3432) PLATELET CONCENTRATION Adequate (CELLAVISION)(BEAKER) (test code = 3438) Quantitative Associate ID - Gregoria Munoz comments: Slide comments:CBC W/PLT COUNT & AUTO [id number] 07:33:44 Test Item Value Reference Range Interpretation Comments WHITE BLOOD CELL COUNT (BEAKER) 18.9 K/ L 3.5-10.5 H (test code = 775) RED BLOOD CELL COUNT (BEAKER) 3.40 M/ L 3.93-5.22 L (test code = 761) HEMOGLOBIN (BEAKER) (test code = 10.0 GM/DL 11.2-15.7 L 410) HEMATOCRIT (BEAKER) (test code = 31.2 % 34.1-44.9 L 411) MEAN CORPUSCULAR VOLUME (BEAKER) 91.8 fL 79.4-94.8 (test code = 753) MEAN CORPUSCULAR HEMOGLOBIN 29.4 pg 25.6-32.2 (BEAKER) (test code = 751) MEAN CORPUSCULAR HEMOGLOBIN CONC 32.1 GM/DL 32.2-35.5 L (BEAKER) (test code = 752) RED CELL DISTRIBUTION WIDTH 13.9 % 11.7-14.4 (BEAKER) (test code = 412) PLATELET COUNT (BEAKER) (test 297 K/CU MM 150-450 code = 756) MEAN PLATELET VOLUME (BEAKER) 11.2 fL 9.4-12.3 (test code = 754) NUCLEATED RED BLOOD CELLS 0 /100 WBC 0-0 (BEAKER) (test code = 413) POCT-GLUCOSE [id number] 07:22:54 Test Item Value Reference Range Interpretation Comments POC-GLUCOSE METER 141 mg/dL 70-110 H : [facility] (BEAKER) (test code = [place], 1538) [address]: Quantitative Associate/Techni shasha ID = [id number] for Zaina Tolbert BASIC METABOLIC [id number] 07:04:01 Test Item Value Reference Range Interpretation Comments SODIUM (BEAKER) (test 136 meq/L 136-145 code = 381) POTASSIUM (BEAKER) 3.5 meq/L 3.5-5.1 (test code = 379) CHLORIDE (BEAKER) 99 meq/L 98-107 (test code = 382) CO2 (BEAKER) (test 31 meq/L 22-29 H code = 355) BLOOD UREA NITROGEN 14 mg/dL 7-21 (BEAKER) (test code = 354) CREATININE (BEAKER) 0.52 mg/dL 0.57-1.25 L (test code = 358) GLUCOSE RANDOM 156 mg/dL 70-105 H (BEAKER) (test code = 652) CALCIUM (BEAKER) 8.0 mg/dL 8.4-10.2 L (test code = 697) EGFR (BEAKER) (test INSUFFIC IENT CLINICAL code = 1092) DATA TO CALCULA TE ESTIMATED GFR. Quantitative Associate ID - BRANDY [id number] 07:01:37 Test Item Value Reference Range Interpretation Comments PHOSPHORUS (BEAKER) (test code = 4.7 mg/dL 2.3-4.7 604) Quantitative Associate ID - BRANDY [id number] 07:01:36 Test Item Value Reference Range Interpretation Comments MAGNESIUM (BEAKER) (test code = 1.7 mg/dL 1.6-2.6 627) Quantitative Associate ID - BRANDY STEPHENS GAS, [id number] 06:41:36 Test Item Value Reference Range Interpretation Comments PH VENOUS (BEAKER) (test code = 7.45 7.32-7.42 H 701) PCO2 VENOUS (BEAKER) (test code = 46 mm Hg 41-51 755) PO2 VENOUS (BEAKER) (test code = 60 mm Hg 25-40 H 702) O2 SATURATION VENOUS (BEAKER) 91.6 % 40.0-70.0 H (test code = 703) HCO3 VENOUS (BEAKER) (test code = 31 mmol/L 21-29 H 705) BASE EXCESS VENOUS (BEAKER) (test 5.9 mmol/L -2.0-3.0 H code = 704) PATIENT TEMPERATURE (BEAKER) (test 37.0 code = 1818) FIO2 (BEAKER) (test code = 1819) 21.0 POCT-GLUCOSE [id number] 06:17:54 Test Item Value Reference Range Interpretation Comments POC-GLUCOSE METER 150 mg/dL 70-110 H : TESTED A T [facility] 6720 (BEAKER) (test code = [place], 1538) [address]: Quantitative Associate/Techni shasha ID = [id number] for Luisana Travis RAD, CHEST, 1 VIEW, NON [id number] 04:48:00while patient is intubated or has chest tubes.Reason for exam:->Status post CV SurgeryShould thisbe performed at the bedside?->Yes [facility] 1960 Sex: FFINAL REPORT CLINICAL INDICATION: Status post CV Surgery Comparison: 11/15/2021 The cardiomediastinal contours are stable. Central pulmonary vascular congestion and left greater than right parenchymal and left pleural opacities are unchanged. There is no pneumothorax. A feeding tube has been removed. Signed: Kingsley Garcia Verified Date/Time: 11/16/2021 04:48:18 BLOOD GAS, [id number] 04:14:21 Test Item Value Reference Range Interpretation Comments PH VENOUS (BEAKER) (test code = 7.40 7.32-7.42 701) PCO2 VENOUS (BEAKER) (test code = 52 mm Hg 41-51 H 755) PO2 VENOUS (BEAKER) (test code = 44 mm Hg 25-40 H 702) O2 SATURATION VENOUS (BEAKER) 79.4 % 40.0-70.0 H (test code = 703) HCO3 VENOUS (BEAKER) (test code = 31 mmol/L 21-29 H 705) BASE EXCESS VENOUS (BEAKER) (test 5.6 mmol/L -2.0-3.0 H code = 704) PATIENT TEMPERATURE (BEAKER) (test 37.0 code = 1818) FIO2 (BEAKER) (test code = 1819) 21.0 CALCIUM, [id number] 04:12:30 Test Item Value Reference Range Interpretation Comments CALCIUM IONIZED (BEAKER) (test 1.13 mmol/L 1.12-1.27 code = 698) PH, BLOOD (BEAKER) (test code = 7.40 1810) POCT-GLUCOSE [id number] 23:54:15 Test Item Value Reference Range Interpretation Comments POC-GLUCOSE METER 201 mg/dL 70-110 H : TESTED A T [facility] 6720 (BEAKER) (test code = [place], 1538) [address]: Quantitative Associate/Techni shasha ID = [id number] for Luisana Travis POCT-GLUCOSE [id number] 22:15:57 Test Item Value Reference Range Interpretation Comments POC-GLUCOSE METER 162 mg/dL 70-110 H : TESTED A T [facility] 6720 (BEAKER) (test code = [place], 1538) [address]: Quantitative Associate/Techni shasha ID = [id number] for Luisana Travis URINALYSIS W/ REFLEX URINE [id number] 19:47:03 Test Item Value Reference Range Interpretation Comments COLOR (BEAKER) (test code = 470) Light Yellow CLARITY (BEAKER) (test code = Clear 469) SPECIFIC GRAVITY UA (BEAKER) 1.013 1.001-1.035 (test code = 468) PH UA (BEAKER) (test code = 467) 6.5 5.0-8.0 PROTEIN UA (BEAKER) (test code = Negative Negative 464) GLUCOSE UA (BEAKER) (test code = 30 mg/dL Negative A 365) KETONES UA (BEAKER) (test code = Negative Negative 371) BILIRUBIN UA (BEAKER) (test code Negative Negative = 462) BLOOD UA (BEAKER) (test code = Negative Negative 461) NITRITE UA (BEAKER) (test code = Negative Negative 465) LEUKOCYTE ESTERASE UA (BEAKER) Negative Negative (test code = 466) UROBILINOGEN UA (BEAKER) (test 3.0 mg/dL 0.2-1.0 H code = 463) RBC UA (BEAKER) (test code = < /HPF 519) WBC UA (BEAKER) (test code = < /HPF 520) BACTERIA (BEAKER) (test code = None Seen 517) HYALINE CASTS (BEAKER) (test 1 /LPF code = 514) CRYSTALS, URINE (BEAKER) (test None Seen code = 1521) SOURCE(BEAKER) (test code = 2795) Quantitative Associate ID - [auto]Quantitative Associate ID - techCALCIUM, [id number] 17:21:42 Test Item Value Reference Range Interpretation Comments CALCIUM IONIZED (BEAKER) (test 1.10 mmol/L 1.12-1.27 L code = 698) PH, BLOOD (BEAKER) (test code = 7.44 1810) POCT-GLUCOSE [id number] 16:56:14 Test Item Value Reference Range Interpretation Comments POC-GLUCOSE METER 206 mg/dL 70-110 H : Notified RN/MD: (BEAKER) (test code = TESTED AT [facility] 2150 2307) [facility], [address]: Quantitative Associate/Techni shasha ID = [id number] for Po ss, Zaina [id number] 14:22:32 Test Item Value Reference Range Interpretation Comments PROCALCITONIN (BEAKER) (test code = < ng/mL <0.05 3036) SEPSIS RISK (ng/mL)Low: 0.05-0.50Intermediate: 0.51-2.00High: >=2.01BASIC METABOLIC [id number] 14:14:21 Test Item Value Reference Range Interpretation Comments SODIUM (BEAKER) (test 135 meq/L 136-145 L code = 381) POTASSIUM (BEAKER) 3.8 meq/L 3.5-5.1 (test code = 379) CHLORIDE (BEAKER) 97 meq/L 98-107 L (test code = 382) CO2 (BEAKER) (test 30 meq/L 22-29 H code = 355) BLOOD UREA NITROGEN 21 mg/dL 7-21 (BEAKER) (test code = 354) CREATININE (BEAKER) 0.63 mg/dL 0.57-1.25 (test code = 358) GLUCOSE RANDOM 268 mg/dL 70-105 H (BEAKER) (test code = 652) CALCIUM (BEAKER) 8.1 mg/dL 8.4-10.2 L (test code = 697) EGFR (BEAKER) (test INSUFFIC IENT CLINICAL code = 1092) DATA TO CALCULA TE ESTIMATED GFR. Quantitative Associate ID - [id number] 14:09:06 Test Item Value Reference Range Interpretation Comments PHOSPHORUS (BEAKER) (test code = 3.3 mg/dL 2.3-4.7 604) Quantitative Associate ID - [id number] 14:09:05 Test Item Value Reference Range Interpretation Comments MAGNESIUM (BEAKER) (test code = 2.1 mg/dL 1.6-2.6 627) Quantitative Associate ID - ADMINCBC (HEMOGRAM ONLY)2021-11-15 13:50:42 Test Item Value Reference Range Interpretation Comments WHITE BLOOD CELL COUNT (BEAKER) 22.5 K/ L 3.5-10.5 H (test code = 775) RED BLOOD CELL COUNT (BEAKER) 3.47 M/ L 3.93-5.22 L (test code = 761) HEMOGLOBIN (BEAKER) (test code = 10.2 GM/DL 11.2-15.7 L 410) HEMATOCRIT (BEAKER) (test code = 31.6 % 34.1-44.9 L 411) MEAN CORPUSCULAR VOLUME (BEAKER) 91.1 fL 79.4-94.8 (test code = 753) MEAN CORPUSCULAR HEMOGLOBIN 29.4 pg 25.6-32.2 (BEAKER) (test code = 751) MEAN CORPUSCULAR HEMOGLOBIN CONC 32.3 GM/DL 32.2-35.5 (BEAKER) (test code = 752) RED CELL DISTRIBUTION WIDTH 13.8 % 11.7-14.4 (BEAKER) (test code = 412) PLATELET COUNT (BEAKER) (test 369 K/CU MM 150-450 code = 756) MEAN PLATELET VOLUME (BEAKER) 10.8 fL 9.4-12.3 (test code = 754) NUCLEATED RED BLOOD CELLS 0 /100 WBC 0-0 (BEAKER) (test code = 413) POCT-GLUCOSE [id number] 11:33:07 Test Item Value Reference Range Interpretation Comments POC-GLUCOSE METER 253 mg/dL 70-110 H : TESTED A T [facility] 6720 (BEAKER) (test code = [facility], 1538) [address]: Quantitative Associate/Techni shasha ID = [id number] for Po Zaina low POCT-GLUCOSE [id number] 07:43:19 Test Item Value Reference Range Interpretation Comments POC-GLUCOSE METER 187 mg/dL 70-110 H : TESTED A T [facility] 6720 (BEAKER) (test code = [facility], 1538) [address]: Quantitative Associate/Techni shasha ID = [id number] for BE RNABE, SOCRATES RAD, CHEST, 1 VIEW, NON [id number] 06:26:00while patient is intubated or has chest tubes.Reason for exam:->Status post CV SurgeryShould thisbe performed at the bedside?->Yes [facility] 1960 Sex: FFINAL REPORT CHEST ONE VIEW HISTORY: Status post cardiovascular surgery COMPARISON: 11/14/2021 FINDINGS: Single portable AP examination of the chest was performed. The diffuse bilateral pulmonary opacities have slightly increased. Atelectatic changes at the left lung base are similar in appearance. Small left pleural effusion, unchanged. The cardiac shadow is partially obscured. No pneumo thorax is visualized. Feeding tube tip is in the region of the distal duodenum. Sternotomy wires arepresent. Signed: Scar Hunt MDReport Verified Date/Time: 11/15/2021 06:26:19 Electronically signedby: SCAR HUNT MD on 11/15/2021 06:26 AMCALCIUM, [id number] 05:28:28 Test Item Value Reference Range Interpretation Comments CALCIUM IONIZED (BEAKER) (test 1.12 mmol/L 1.12-1.27 code = 698) PH, BLOOD (BEAKER) (test code = 7.40 1810) BASIC METABOLIC [id number] 05:07:41 Test Item Value Reference Range Interpretation Comments SODIUM (BEAKER) (test 138 meq/L 136-145 code = 381) POTASSIUM (BEAKER) 3.6 meq/L 3.5-5.1 (test code = 379) CHLORIDE (BEAKER) 100 meq/L 98-107 (test code = 382) CO2 (BEAKER) (test 31 meq/L 22-29 H code = 355) BLOOD UREA NITROGEN 22 mg/dL 7-21 H (BEAKER) (test code = 354) CREATININE (BEAKER) 0.55 mg/dL 0.57-1.25 L (test code = 358) GLUCOSE RANDOM 191 mg/dL 70-105 H (BEAKER) (test code = 652) CALCIUM (BEAKER) 8.3 mg/dL 8.4-10.2 L (test code = 697) EGFR (BEAKER) (test INSUFFIC IENT CLINICAL code = 1092) DATA TO CALCULA TE ESTIMATED GFR. Quantitative Associate ID - VIKKI [id number] 05:04:12 Test Item Value Reference Range Interpretation Comments MAGNESIUM (BEAKER) (test code = 1.8 mg/dL 1.6-2.6 627) Quantitative Associate ID - VIKKI [id number] 05:04:12 Test Item Value Reference Range Interpretation Comments PHOSPHORUS (BEAKER) (test code = 3.3 mg/dL 2.3-4.7 604) Quantitative Associate ID - VIKKI GCBC (HEMOGRAM ONLY)2021-11-15 04:21:58 Test Item Value Reference Range Interpretation Comments WHITE BLOOD CELL COUNT (BEAKER) 19.1 K/ L 3.5-10.5 H (test code = 775) RED BLOOD CELL COUNT (BEAKER) 3.31 M/ L 3.93-5.22 L (test code = 761) HEMOGLOBIN (BEAKER) (test code = 9.8 GM/DL 11.2-15.7 L 410) HEMATOCRIT (BEAKER) (test code = 29.7 % 34.1-44.9 L 411) MEAN CORPUSCULAR VOLUME (BEAKER) 89.7 fL 79.4-94.8 (test code = 753) MEAN CORPUSCULAR HEMOGLOBIN 29.6 pg 25.6-32.2 (BEAKER) (test code = 751) MEAN CORPUSCULAR HEMOGLOBIN CONC 33.0 GM/DL 32.2-35.5 (BEAKER) (test code = 752) RED CELL DISTRIBUTION WIDTH 13.8 % 11.7-14.4 (BEAKER) (test code = 412) PLATELET COUNT (BEAKER) (test 312 K/CU MM 150-450 code = 756) MEAN PLATELET VOLUME (BEAKER) 10.8 fL 9.4-12.3 (test code = 754) NUCLEATED RED BLOOD CELLS 0 /100 WBC 0-0 (BEAKER) (test code = 413) POCT-GLUCOSE [id number] 22:02:33 Test Item Value Reference Range Interpretation Comments POC-GLUCOSE METER 252 mg/dL 70-110 H : TESTED A T [facility] 6720 (BEAKER) (test code = [facility], 1538) [address]: Quantitative Associate/Techni shasha ID = [id number] for YE (V), SANDRITA BASIC METABOLIC [id number] 19:23:53 Test Item Value Reference Range Interpretation Comments SODIUM (BEAKER) (test 140 meq/L 136-145 code = 381) POTASSIUM (BEAKER) 3.8 meq/L 3.5-5.1 (test code = 379) CHLORIDE (BEAKER) 102 meq/L 98-107 (test code = 382) CO2 (BEAKER) (test 32 meq/L 22-29 H code = 355) BLOOD UREA NITROGEN 25 mg/dL 7-21 H (BEAKER) (test code = 354) CREATININE (BEAKER) 0.63 mg/dL 0.57-1.25 (test code = 358) GLUCOSE RANDOM 255 mg/dL 70-105 H (BEAKER) (test code = 652) CALCIUM (BEAKER) 8.5 mg/dL 8.4-10.2 (test code = 697) EGFR (BEAKER) (test INSUFFIC IENT CLINICAL code = 1092) DATA TO CALCULA TE ESTIMATED GFR. Quantitative Associate ID - [id number] 19:16:16 Test Item Value Reference Range Interpretation Comments MAGNESIUM (BEAKER) (test code = 1.8 mg/dL 1.6-2.6 627) Quantitative Associate ID - [id number] 19:16:16 Test Item Value Reference Range Interpretation Comments PHOSPHORUS (BEAKER) (test code = 3.0 mg/dL 2.3-4.7 604) Quantitative Associate ID - BSCALCIUM, [id number] 18:52:13 Test Item Value Reference Range Interpretation Comments CALCIUM IONIZED (BEAKER) (test 1.13 mmol/L 1.12-1.27 code = 698) PH, BLOOD (BEAKER) (test code = 7.43 1810) POCT-GLUCOSE [id number] 17:28:47 Test Item Value Reference Range Interpretation Comments POC-GLUCOSE METER 196 mg/dL 70-110 H : TESTED A T [facility] 6720 (BEAKER) (test code = [facility], 1538) [address]: Quantitative Associate/Techni shasha ID = [id number] for Gm as (contract), Boi soha FL, ESOPH, SWALLOW FUNCTION, WITH CINE OR [id number] 16:32:00Reason for exam:->swallo eval [facility] LAURA : 1960 Sex: FFINAL REPORT Modified barium swallow exam with speech pathology service CLINICAL HISTORY: swallow eval IMPRESSION: Please see the speech pathology service report for details. Barium contrast of multiple consistencies is given to the patient to swallow. Fluoroscopic observation is performed during swallowing. Fluoro time: 1.5 minutes Number of images: 2 cine clips Signed: Laura Santos Verified Date/Time: 11/14/2021 16:32:23 Reading Location: [address] Consult Reading Room POCT-GLUCOSE [id number] 12:15:46 Test Item Value Reference Range Interpretation Comments POC-GLUCOSE METER 273 mg/dL 70-110 H : TESTED A T [facility] 6720 (LearnUp) (test code = SANDRAHUNG Gallo [facility], 1538) [address]: Quantitative Associate/Techni shasha ID = [id number] for Gm as (contract), Nikolas hoyos VANCOMYCIN LEVEL, [id number] 09:35:07 Test Item Value Reference Range Interpretation Comments VANCOMYCIN TROUGH (ELMERAKER) (test 17.7 ug/mL 10.0-20.0 code = 522) Quantitative Associate ID - BSPOCT-GLUCOSE [id number] 07:21:29 Test Item Value Reference Range Interpretation Comments POC-GLUCOSE METER 315 mg/dL 70-110 H : TESTED A T [facility] 6720 (BEAKER) (test code = [place], 1538) [address]: Quantitative Associate/Techni shasha ID = [id number] for Homero lomeli (contract)Nikolas CALCIUM, [id number] 07:10:12 Test Item Value Reference Range Interpretation Comments CALCIUM IONIZED (BEAKER) (test 1.13 mmol/L 1.12-1.27 code = 698) PH, BLOOD (BEAKER) (test code = 7.37 1810) RAD, CHEST, 1 VIEW, NON [id number] 06:12:00while patient is intubated or has chest tubes.Reason for exam:->Status post CV SurgeryShould thisbe performed at the bedside?->Yes [facility] 1960 Sex: FFINAL REPORT EXAM: Chest one view COMPARISON: November 13, 2021 CLINICAL HISTORY: Status post heart surgery FINDINGS: There is interval removal of the left arm PICC. The Dobbhoff feeding tube is unchanged in position. The cardiac size is within normal limits. There is interval worsening in left basilar pulmonary opacity which may represent atelectasis versus consolidation. There is no evidence of pneumothorax. The regional osseous structures are unremarkable. Signed: Jaymie Araujo MDReport Verified Date/Time: 11/14/2021 06:12:31 BASIC METABOLIC [id number] 05:31:03 Test Item Value Reference Range Interpretation Comments SODIUM (BEAKER) (test 137 meq/L 136-145 code = 381) POTASSIUM (BEAKER) 5.0 meq/L 3.5-5.1 Specimen slightly (test code = 379) hemolyzed CHLORIDE (BEAKER) 102 meq/L 98-107 (test code = 382) CO2 (BEAKER) (test 27 meq/L 22-29 code = 355) BLOOD UREA NITROGEN 26 mg/dL 7-21 H (BEAKER) (test code = 354) CREATININE (BEAKER) 0.65 mg/dL 0.57-1.25 Specimen slightly (test code = 358) hemolyzed GLUCOSE RANDOM 331 mg/dL 70-105 H (BEAKER) (test code = 652) CALCIUM (BEAKER) 8.4 mg/dL 8.4-10.2 (test code = 697) EGFR (BEAKER) (test INSUFFIC IENT CLINICAL code = 1092) DATA TO CALCULA TE ESTIMATED GFR. Quantitative Associate ID - BRANDY [id number] 05:30:26 Test Item Value Reference Range Interpretation Comments MAGNESIUM (BEAKER) 2.0 mg/dL 1.6-2.6 Specimen slightly (test code = 627) hemolyzed Quantitative Associate ID - BRANDY [id number] 05:30:26 Test Item Value Reference Range Interpretation Comments PHOSPHORUS (BEAKER) 4.1 mg/dL 2.3-4.7 Specimen slightly (test code = 604) hemolyzed Quantitative Associate ID - BRANDY MCBC (HEMOGRAM ONLY)2021-11-14 04:59:12 Test Item Value Reference Range Interpretation Comments WHITE BLOOD CELL COUNT (BEAKER) 16.8 K/ L 3.5-10.5 H (test code = 775) RED BLOOD CELL COUNT (BEAKER) 3.43 M/ L 3.93-5.22 L (test code = 761) HEMOGLOBIN (BEAKER) (test code = 10.0 GM/DL 11.2-15.7 L 410) HEMATOCRIT (BEAKER) (test code = 31.5 % 34.1-44.9 L 411) MEAN CORPUSCULAR VOLUME (BEAKER) 91.8 fL 79.4-94.8 (test code = 753) MEAN CORPUSCULAR HEMOGLOBIN 29.2 pg 25.6-32.2 (BEAKER) (test code = 751) MEAN CORPUSCULAR HEMOGLOBIN CONC 31.7 GM/DL 32.2-35.5 L (BEAKER) (test code = 752) RED CELL DISTRIBUTION WIDTH 13.6 % 11.7-14.4 (BEAKER) (test code = 412) PLATELET COUNT (BEAKER) (test 334 K/CU MM 150-450 code = 756) MEAN PLATELET VOLUME (BEAKER) 10.9 fL 9.4-12.3 (test code = 754) NUCLEATED RED BLOOD CELLS 0 /100 WBC 0-0 (BEAKER) (test code = 413) POCT-GLUCOSE [id number] 23:35:37 Test Item Value Reference Range Interpretation Comments POC-GLUCOSE METER 220 mg/dL 70-110 H : TESTED A T [facility] 6720 (BEAKER) (test code = [facility], 1538) [address]: Quantitative Associate/Techni shasha ID = [id number] for August POCT-GLUCOSE [id number] 18:33:46 Test Item Value Reference Range Interpretation Comments POC-GLUCOSE METER 266 mg/dL 70-110 H : TESTED A T [facility] 6720 (BEAKER) (test code = [facility], 1538) [address]: Quantitative Associate/Techni shasha ID = [id number] for Gretchen Roper [place] BASIC METABOLIC [id number] 17:05:34 Test Item Value Reference Range Interpretation Comments SODIUM (BEAKER) (test 140 meq/L 136-145 code = 381) POTASSIUM (BEAKER) 4.1 meq/L 3.5-5.1 (test code = 379) CHLORIDE (BEAKER) 103 meq/L 98-107 (test code = 382) CO2 (BEAKER) (test 31 meq/L 22-29 H code = 355) BLOOD UREA NITROGEN 28 mg/dL 7-21 H (BEAKER) (test code = 354) CREATININE (BEAKER) 0.64 mg/dL 0.57-1.25 (test code = 358) GLUCOSE RANDOM 282 mg/dL 70-105 H (BEAKER) (test code = 652) CALCIUM (BEAKER) 8.6 mg/dL 8.4-10.2 (test code = 697) EGFR (BEAKER) (test INSUFFIC IENT CLINICAL code = 1092) DATA TO CALCULA TE ESTIMATED GFR. Quantitative Associate ID - [id number] 17:05:03 Test Item Value Reference Range Interpretation Comments MAGNESIUM (BEAKER) (test code = 1.9 mg/dL 1.6-2.6 627) Quantitative Associate ID - [id number] 17:05:03 Test Item Value Reference Range Interpretation Comments PHOSPHORUS (BEAKER) (test code = 3.5 mg/dL 2.3-4.7 604) Quantitative Associate ID - BSCALCIUM, [id number] 16:39:34 Test Item Value Reference Range Interpretation Comments CALCIUM IONIZED (BEAKER) (test 1.13 mmol/L 1.12-1.27 code = 698) PH, BLOOD (BEAKER) (test code = 7.40 1810) POCT-GLUCOSE [id number] 12:20:56 Test Item Value Reference Range Interpretation Comments POC-GLUCOSE METER 235 mg/dL 70-110 H : Notified RN/MD: (KRYSTAL) (test code = TESTED AT [facility] 6720 1538) [facility], [address]: Quantitative Associate/Techni shasha ID = [id number] for Jessica Reynolds RAD, CHEST, 1 VIEW, NON [id number] 08:26:00while patient is intubated or has chest tubes.Reason for exam:->Status post CV SurgeryShould thisbe performed at the bedside?->Yes [facility] : 1960 Sex: FFINAL REPORT TECHNIQUE: Frontal view of the chest. INDICATION: Status post CV Surgery COMPARISON:Prior day. DISCUSSION:Limited evaluation due to portable technique. Lines and hardware: Interval removal of the right IJ catheter. Remaining support structures are stable.Heart and mediastinum: Stable.Lungs and pleura: Ill-defined bilateral interstitial and patchy airspace opacities, most prominent at the left lung base are stable. Trace left effusion. No right effusion. No pneumothorax.Softtissues and bones: No acute abnormality. IMPRESSION:Stable exam Signed: Magnus Khanna MDReport Verified Date/Time: 11/13/2021 08:26:20 Reading Location: [facility] Radiology Reading Room POCT- GLUCOSE [id number] 06:48:15 Test Item Value Reference Range Interpretation Comments POC-GLUCOSE METER 264 mg/dL 70-110 H : TESTED A T [facility] (BEAKER) (test code = SANDRAHUNG Gallo [facility], 1538) [address]: Quantitative Associate/Techni shasha ID = [id number] for MIGDALIA GARNICA BASIC METABOLIC [id number] 03:55:53 Test Item Value Reference Range Interpretation Comments SODIUM (BEAKER) (test 141 meq/L 136-145 code = 381) POTASSIUM (BEAKER) 4.0 meq/L 3.5-5.1 (test code = 379) CHLORIDE (BEAKER) 107 meq/L 98-107 (test code = 382) CO2 (BEAKER) (test 26 meq/L 22-29 code = 355) BLOOD UREA NITROGEN 32 mg/dL 7-21 H (BEAKER) (test code = 354) CREATININE (BEAKER) 0.61 mg/dL 0.57-1.25 (test code = 358) GLUCOSE RANDOM 265 mg/dL 70-105 H (BEAKER) (test code = 652) CALCIUM (BEAKER) 8.5 mg/dL 8.4-10.2 (test code = 697) EGFR (BEAKER) (test INSUFFIC IENT CLINICAL code = 1092) DATA TO CALCULA TE ESTIMATED GFR. Quantitative Associate ID - [id number] 03:33:03 Test Item Value Reference Range Interpretation Comments MAGNESIUM (BEAKER) (test code = 2.1 mg/dL 1.6-2.6 627) Quantitative Associate ID - [id number] 03:33:03 Test Item Value Reference Range Interpretation Comments PHOSPHORUS (BEAKER) (test code = 2.9 mg/dL 2.3-4.7 604) Quantitative Associate ID - [id number] 02:59:19 Test Item Value Reference Range Interpretation Comments PROCALCITONIN (BEAKER) (test code 0.13 ng/mL <0.05 H = 3036) SEPSIS RISK (ng/mL)Low: 0.05-0.50Intermediate: 0.51-2.00High: >=2.01CALCIUM, [id number] 02:43:23 Test Item Value Reference Range Interpretation Comments CALCIUM IONIZED (BEAKER) (test 1.18 mmol/L 1.12-1.27 code = 698) PH, BLOOD (BEAKER) (test code = 7.44 1810) OXYGEN SATURATION, [id number] 02:43:12 Test Item Value Reference Range Interpretation Comments O2 SATURATION (MEASURED) (BEAKER) 86.6 % (test code = 1455) BLOOD GAS, [id number] 02:42:32 Test Item Value Reference Range Interpretation Comments PH ARTERIAL (BEAKER) (test code = 7.45 7.35-7.45 383) PCO2 ARTERIAL (BEAKER) (test code 41 mm Hg 35-45 = 384) PO2 ARTERIAL (BEAKER) (test code = 121 mm Hg 80-90 H 385) O2 SATURATION ARTERIAL (BEAKER) 98.6 % 96.0-97.0 H (test code = 386) HCO3 ARTERIAL (BEAKER) (test code 28 mmol/L 21-29 = 388) BASE EXCESS ARTERIAL (BEAKER) 3.6 mmol/L -2.0-3.0 H (test code = 387) PATIENT TEMPERATURE (BEAKER) (test 36.6 code = 1818) FIO2 (BEAKER) (test code = 1819) 40.0 CBC (HEMOGRAM ONLY)2021-11-13 02:32:53 Test Item Value Reference Range Interpretation Comments WHITE BLOOD CELL COUNT (BEAKER) 19.5 K/ L 3.5-10.5 H (test code = 775) RED BLOOD CELL COUNT (BEAKER) 3.25 M/ L 3.93-5.22 L (test code = 761) HEMOGLOBIN (BEAKER) (test code = 9.7 GM/DL 11.2-15.7 L 410) HEMATOCRIT (BEAKER) (test code = 29.4 % 34.1-44.9 L 411) MEAN CORPUSCULAR VOLUME (BEAKER) 90.5 fL 79.4-94.8 (test code = 753) MEAN CORPUSCULAR HEMOGLOBIN 29.8 pg 25.6-32.2 (BEAKER) (test code = 751) MEAN CORPUSCULAR HEMOGLOBIN CONC 33.0 GM/DL 32.2-35.5 (BEAKER) (test code = 752) RED CELL DISTRIBUTION WIDTH 13.6 % 11.7-14.4 (BEAKER) (test code = 412) PLATELET COUNT (BEAKER) (test 317 K/CU MM 150-450 code = 756) MEAN PLATELET VOLUME (BEAKER) 10.5 fL 9.4-12.3 (test code = 754) NUCLEATED RED BLOOD CELLS 0 /100 WBC 0-0 (BEAKER) (test code = 413) POCT-GLUCOSE [id number] 23:41:50 Test Item Value Reference Range Interpretation Comments POC-GLUCOSE METER 262 mg/dL 70-110 H : TESTED A T [facility] 6720 (BEAKER) (test code = [facility], 1538) 76[address]: Quantitative Associate/Techni shasha ID = [id number] for ROSITAAugust POCT-GLUCOSE [id number] 19:31:21 Test Item Value Reference Range Interpretation Comments POC-GLUCOSE METER 247 mg/dL 70-110 H : TESTED A T [facility] 6720 (BEAKER) (test code = [facility], 1538) 31270: Quantitative Associate/Techni shasha ID = [id number] for Laura Booker kevin BASIC METABOLIC [id number] 16:41:57 Test Item Value Reference Range Interpretation Comments SODIUM (BEAKER) (test 142 meq/L 136-145 code = 381) POTASSIUM (BEAKER) 3.9 meq/L 3.5-5.1 (test code = 379) CHLORIDE (BEAKER) 105 meq/L 98-107 (test code = 382) CO2 (BEAKER) (test 29 meq/L 22-29 code = 355) BLOOD UREA NITROGEN 34 mg/dL 7-21 H (BEAKER) (test code = 354) CREATININE (BEAKER) 0.67 mg/dL 0.57-1.25 (test code = 358) GLUCOSE RANDOM 274 mg/dL 70-105 H (BEAKER) (test code = 652) CALCIUM (BEAKER) 8.9 mg/dL 8.4-10.2 (test code = 697) EGFR (BEAKER) (test INSUFFIC IENT CLINICAL code = 1092) DATA TO CALCULA TE ESTIMATED GFR. Quantitative Associate ID - [id number] 16:40:57 Test Item Value Reference Range Interpretation Comments MAGNESIUM (BEAKER) (test code = 2.0 mg/dL 1.6-2.6 627) Quantitative Associate ID - [id number] 16:40:57 Test Item Value Reference Range Interpretation Comments PHOSPHORUS (BEAKER) (test code = 3.0 mg/dL 2.3-4.7 604) Quantitative Associate ID - BSBLOOD GAS, [id number] 16:33:30 Test Item Value Reference Range Interpretation Comments PH ARTERIAL (BEAKER) (test code = 7.49 7.35-7.45 H 383) PCO2 ARTERIAL (BEAKER) (test code 38 mm Hg 35-45 = 384) PO2 ARTERIAL (BEAKER) (test code = 164 mm Hg 80-90 H 385) O2 SATURATION ARTERIAL (BEAKER) 99.2 % 96.0-97.0 H (test code = 386) HCO3 ARTERIAL (BEAKER) (test code 28 mmol/L 21-29 = 388) BASE EXCESS ARTERIAL (BEAKER) 4.4 mmol/L -2.0-3.0 H (test code = 387) PATIENT TEMPERATURE (BEAKER) (test 37.0 code = 1818) FIO2 (BEAKER) (test code = 1819) 40.0 CALCIUM, [id number] 16:33:14 Test Item Value Reference Range Interpretation Comments CALCIUM IONIZED (BEAKER) (test 1.15 mmol/L 1.12-1.27 code = 698) PH, BLOOD (BEAKER) (test code = 7.49 1810) POCT-GLUCOSE [id number] 13:43:28 Test Item Value Reference Range Interpretation Comments POC-GLUCOSE METER 294 mg/dL 70-110 H : TESTED A T [facility] 6720 (BEAKER) (test code = JAVAN Gallo [place], 1538) 00[address]: Quantitative Associate/Techni shasha ID = [id number] for NADIA HICKEY BLOOD GAS, [id number] 12:34:32 Test Item Value Reference Range Interpretation Comments PH ARTERIAL (BEAKER) (test code = 7.52 7.35-7.45 H 383) PCO2 ARTERIAL (BEAKER) (test code 35 mm Hg 35-45 = 384) PO2 ARTERIAL (BEAKER) (test code = 123 mm Hg 80-90 H 385) O2 SATURATION ARTERIAL (BEAKER) 98.8 % 96.0-97.0 H (test code = 386) HCO3 ARTERIAL (BEAKER) (test code 28 mmol/L 21-29 = 388) BASE EXCESS ARTERIAL (BEAKER) 4.7 mmol/L -2.0-3.0 H (test code = 387) PATIENT TEMPERATURE (BEAKER) (test 37.0 code = 1818) FIO2 (BEAKER) (test code = 1819) 40.0 POCT-GLUCOSE [id number] 11:10:27 Test Item Value Reference Range Interpretation Comments POC-GLUCOSE METER 294 mg/dL 70-110 H : TESTED A T [facility] (BEAKER) (test code = JAVAN Gallo [place], 1538) 98[address]: Quantitative Associate/Techni shasha ID = [id number] for DARON PEREZ RAD, CHEST, 1 VIEW, NON [id number] 08:04:00while patient is intubated or has chest tubes.Reason for exam:->Status post CV SurgeryShould thisbe performed at the bedside?->Yes [facility] 1960 Sex: FFINAL REPORT Chest AP portable Comparison exam: 11/11/2021 History provided: Status postCV surgery ET tube has been removed. Feeding tube remains in position. Right jugular catheter and PICC line unchanged. Heart size within normal limits allowing for magnification. Interstitial airspace opacities unchanged. Signed: Audie Smarteport Verified Date/Time: 11/12/2021 08:04:22 Reading Location: [facility] Radiology Reading Room BASIC METABOLIC [id number] 05:40:59 Test Item Value Reference Range Interpretation Comments SODIUM (BEAKER) (test 139 meq/L 136-145 code = 381) POTASSIUM (BEAKER) 4.4 meq/L 3.5-5.1 (test code = 379) CHLORIDE (BEAKER) 101 meq/L 98-107 (test code = 382) CO2 (BEAKER) (test 27 meq/L 22-29 code = 355) BLOOD UREA NITROGEN 31 mg/dL 7-21 H (BEAKER) (test code = 354) CREATININE (BEAKER) 0.68 mg/dL 0.57-1.25 (test code = 358) GLUCOSE RANDOM 287 mg/dL 70-105 H (BEAKER) (test code = 652) CALCIUM (BEAKER) 8.7 mg/dL 8.4-10.2 (test code = 697) EGFR (BEAKER) (test INSUFFIC IENT CLINICAL code = 1092) DATA TO CALCULA TE ESTIMATED GFR. Quantitative Associate ID - NÉSTOR [id number] 05:27:33 Test Item Value Reference Range Interpretation Comments PHOSPHORUS (BEAKER) (test code = 4.1 mg/dL 2.3-4.7 604) Quantitative Associate ID - NÉSTOR [id number] 05:27:32 Test Item Value Reference Range Interpretation Comments MAGNESIUM (BEAKER) (test code = 1.9 mg/dL 1.6-2.6 627) Quantitative Associate ID - NÉSTOR LOXYGEN SATURATION, [id number] 05:18:45 Test Item Value Reference Range Interpretation Comments O2 SATURATION (MEASURED) (BEAKER) 81.1 % (test code = 1455) BLOOD GAS, [id number] 05:05:35 Test Item Value Reference Range Interpretation Comments PH ARTERIAL (BEAKER) (test code = 7.44 7.35-7.45 383) PCO2 ARTERIAL (BEAKER) (test code 43 mm Hg 35-45 = 384) PO2 ARTERIAL (BEAKER) (test code = 187 mm Hg 80-90 H 385) O2 SATURATION ARTERIAL (BEAKER) 99.3 % 96.0-97.0 H (test code = 386) HCO3 ARTERIAL (BEAKER) (test code 28 mmol/L 21-29 = 388) BASE EXCESS ARTERIAL (BEAKER) 3.6 mmol/L -2.0-3.0 H (test code = 387) PATIENT TEMPERATURE (BEAKER) (test 37.6 code = 1818) FIO2 (BEAKER) (test code = 1819) 40.0 CBC (HEMOGRAM ONLY)2021-11-12 05:04:37 Test Item Value Reference Range Interpretation Comments WHITE BLOOD CELL COUNT (BEAKER) 12.9 K/ L 3.5-10.5 H (test code = 775) RED BLOOD CELL COUNT (BEAKER) 3.23 M/ L 3.93-5.22 L (test code = 761) HEMOGLOBIN (BEAKER) (test code = 9.5 GM/DL 11.2-15.7 L 410) HEMATOCRIT (BEAKER) (test code = 29.9 % 34.1-44.9 L 411) MEAN CORPUSCULAR VOLUME (BEAKER) 92.6 fL 79.4-94.8 (test code = 753) MEAN CORPUSCULAR HEMOGLOBIN 29.4 pg 25.6-32.2 (BEAKER) (test code = 751) MEAN CORPUSCULAR HEMOGLOBIN CONC 31.8 GM/DL 32.2-35.5 L (BEAKER) (test code = 752) RED CELL DISTRIBUTION WIDTH 13.5 % 11.7-14.4 (BEAKER) (test code = 412) PLATELET COUNT (BEAKER) (test 294 K/CU MM 150-450 code = 756) MEAN PLATELET VOLUME (BEAKER) 11.0 fL 9.4-12.3 (test code = 754) NUCLEATED RED BLOOD CELLS 0 /100 WBC 0-0 (BEAKER) (test code = 413) CALCIUM, [id number] 05:02:54 Test Item Value Reference Range Interpretation Comments CALCIUM IONIZED (BEAKER) (test 1.14 mmol/L 1.12-1.27 code = 698) PH, BLOOD (BEAKER) (test code = 7.45 1810) POCT-GLUCOSE [id number] 23:34:39 Test Item Value Reference Range Interpretation Comments POC-GLUCOSE METER 178 mg/dL 70-110 H : TESTED A T [facility] 6720 (BEAKER) (test code = [facility], 1538) 6300[address]: Quantitative Associate/Techni shasha ID = [id number] for JOHN MANTILLA BLOOD GAS, [id number] 22:24:26 Test Item Value Reference Range Interpretation Comments PH ARTERIAL (BEAKER) (test code = 7.48 7.35-7.45 H 383) PCO2 ARTERIAL (BEAKER) (test code 42 mm Hg 35-45 = 384) PO2 ARTERIAL (BEAKER) (test code = 175 mm Hg 80-90 H 385) O2 SATURATION ARTERIAL (BEAKER) 99.3 % 96.0-97.0 H (test code = 386) HCO3 ARTERIAL (BEAKER) (test code 31 mmol/L 21-29 H = 388) BASE EXCESS ARTERIAL (BEAKER) 6.6 mmol/L -2.0-3.0 H (test code = 387) PATIENT TEMPERATURE (BEAKER) (test 37.7 code = 1818) FIO2 (BEAKER) (test code = 1819) 40.0 POCT-GLUCOSE [id number] 21:00:40 Test Item Value Reference Range Interpretation Comments POC-GLUCOSE METER 130 mg/dL 70-110 H : TESTED A T [facility] 6720 (BEAKER) (test code = [facility], 1538) 12655: Quantitative Associate/Techni shasha ID = [id number] for Rocio Medrano POCT-GLUCOSE [id number] 18:30:39 Test Item Value Reference Range Interpretation Comments POC-GLUCOSE METER 87 mg/dL 70-110 : TESTED A T [facility] 6720 (BEAKER) (test code = [facility], 1538) 012[address]: Quantitative Associate/Techni shasha ID = [id number] for Denise Brooks (contract), [place] BASIC METABOLIC [id number] 17:41:50 Test Item Value Reference Range Interpretation Comments SODIUM (BEAKER) (test 144 meq/L 136-145 code = 381) POTASSIUM (BEAKER) 4.2 meq/L 3.5-5.1 Specimen slightly (test code = 379) hemolyzed CHLORIDE (BEAKER) 105 meq/L 98-107 (test code = 382) CO2 (BEAKER) (test 32 meq/L 22-29 H code = 355) BLOOD UREA NITROGEN 30 mg/dL 7-21 H (BEAKER) (test code = 354) CREATININE (BEAKER) 0.57 mg/dL 0.57-1.25 Specimen slightly (test code = 358) hemolyzed GLUCOSE RANDOM 114 mg/dL 70-105 H (BEAKER) (test code = 652) CALCIUM (BEAKER) 9.1 mg/dL 8.4-10.2 (test code = 697) EGFR (BEAKER) (test INSUFFIC IENT CLINICAL code = 1092) DATA TO CALCULA TE ESTIMATED GFR. Quantitative Associate ID - [id number] 17:40:33 Test Item Value Reference Range Interpretation Comments PHOSPHORUS (BEAKER) 3.1 mg/dL 2.3-4.7 Specimen slightly (test code = 604) hemolyzed Quantitative Associate ID - [id number] 17:40:32 Test Item Value Reference Range Interpretation Comments MAGNESIUM (BEAKER) 2.1 mg/dL 1.6-2.6 Specimen slightly (test code = 627) hemolyzed Quantitative Associate ID - BSBLOOD GAS, [id number] 17:17:45 Test Item Value Reference Range Interpretation Comments PH ARTERIAL (BEAKER) (test code = 7.54 7.35-7.45 H 383) PCO2 ARTERIAL (BEAKER) (test code 36 mm Hg 35-45 = 384) PO2 ARTERIAL (BEAKER) (test code = 143 mm Hg 80-90 H 385) O2 SATURATION ARTERIAL (BEAKER) 99.1 % 96.0-97.0 H (test code = 386) HCO3 ARTERIAL (BEAKER) (test code 30 mmol/L 21-29 H = 388) BASE EXCESS ARTERIAL (BEAKER) 7.2 mmol/L -2.0-3.0 H (test code = 387) PATIENT TEMPERATURE (BEAKER) (test 37.0 code = 1818) FIO2 (BEAKER) (test code = 1819) 21.0 CALCIUM, [id number] 17:15:22 Test Item Value Reference Range Interpretation Comments CALCIUM IONIZED (BEAKER) (test 1.14 mmol/L 1.12-1.27 code = 698) PH, BLOOD (BEAKER) (test code = 7.54 1810) POCT-GLUCOSE [id number] 16:11:02 Test Item Value Reference Range Interpretation Comments POC-GLUCOSE METER 114 mg/dL 70-110 H : TESTED A T [facility] 6720 (BEAKER) (test code = [facility], 1538) 02251: Quantitative Associate/Techni shasha ID = [id number] for Steven Olson (contract), [place] POCT-GLUCOSE [id number] 15:14:35 Test Item Value Reference Range Interpretation Comments POC-GLUCOSE METER 126 mg/dL 70-110 H : TESTED A T [facility] 6720 (BEAKER) (test code = [facility], 1538) 72223: Quantitative Associate/Techni shasha ID = [id number] for Co mbs, Nilda POCT-GLUCOSE [id number] 15:13:43 Test Item Value Reference Range Interpretation Comments POC-GLUCOSE METER 139 mg/dL 70-110 H : TESTED A T [facility] 6720 (BEAKER) (test code = [facility], 1538) 34124: Quantitative Associate/Techni shasha ID = [id number] for Co mbs, Nilda BLOOD GAS, [id number] 13:44:55 Test Item Value Reference Range Interpretation Comments PH ARTERIAL (BEAKER) (test code = 7.50 7.35-7.45 H 383) PCO2 ARTERIAL (BEAKER) (test code 40 mm Hg 35-45 = 384) PO2 ARTERIAL (BEAKER) (test code = 137 mm Hg 80-90 H 385) O2 SATURATION ARTERIAL (BEAKER) 98.9 % 96.0-97.0 H (test code = 386) HCO3 ARTERIAL (BEAKER) (test code 31 mmol/L 21-29 H = 388) BASE EXCESS ARTERIAL (BEAKER) 7.3 mmol/L -2.0-3.0 H (test code = 387) PATIENT TEMPERATURE (BEAKER) (test 37.2 code = 1818) FIO2 (BEAKER) (test code = 1819) 40.0 BLOOD GAS, [id number] 12:14:11 Test Item Value Reference Range Interpretation Comments PH ARTERIAL (BEAKER) (test code = 7.54 7.35-7.45 H 383) PCO2 ARTERIAL (BEAKER) (test code 36 mm Hg 35-45 = 384) PO2 ARTERIAL (BEAKER) (test code = 166 mm Hg 80-90 H 385) O2 SATURATION ARTERIAL (BEAKER) 99.3 % 96.0-97.0 H (test code = 386) HCO3 ARTERIAL (BEAKER) (test code 30 mmol/L 21-29 H = 388) BASE EXCESS ARTERIAL (BEAKER) 7.2 mmol/L -2.0-3.0 H (test code = 387) PATIENT TEMPERATURE (BEAKER) (test 36.8 code = 1818) FIO2 (BEAKER) (test code = 1819) 40.0 POCT-GLUCOSE [id number] 12:06:12 Test Item Value Reference Range Interpretation Comments POC-GLUCOSE METER 136 mg/dL 70-110 H : TESTED A T [facility] 6720 (BEAKER) (test code = [facility], 1538) 25404: Quantitative Associate/Techni shasha ID = [id number] for Co mbs, Nilda POCT-GLUCOSE [id number] 11:17:25 Test Item Value Reference Range Interpretation Comments POC-GLUCOSE METER 94 mg/dL 70-110 : TESTED A T [facility] 6720 (BEAKER) (test code = [facility], 1538) 28428: Quantitative Associate/Techni shasha ID = [id number] for Comb s, Nilda BLOOD GAS, [id number] 10:22:45 Test Item Value Reference Range Interpretation Comments PH ARTERIAL (BEAKER) (test code = 7.49 7.35-7.45 H 383) PCO2 ARTERIAL (BEAKER) (test code 42 mm Hg 35-45 = 384) PO2 ARTERIAL (BEAKER) (test code = 148 mm Hg 80-90 H 385) O2 SATURATION ARTERIAL (BEAKER) 99.1 % 96.0-97.0 H (test code = 386) HCO3 ARTERIAL (BEAKER) (test code 31 mmol/L 21-29 H = 388) BASE EXCESS ARTERIAL (BEAKER) 6.7 mmol/L -2.0-3.0 H (test code = 387) PATIENT TEMPERATURE (BEAKER) (test 36.7 code = 1818) FIO2 (BEAKER) (test code = 1819) 40.0 POCT-GLUCOSE [id number] 10:18:32 Test Item Value Reference Range Interpretation Comments POC-GLUCOSE METER 134 mg/dL 70-110 H : [facility] (test code = [facility], 1538) 65821: Quantitative Associate/Techni shasha ID = [id number] for Co mbs, Nilda RAD, ABDOMEN/KUB, 1 VIEW [id number] 08:58:00Reason for exam:->[facility] : 1960 Sex: FFINAL REPORT Portable KUB History provided: Evaluation of Corpak position Radiopaque tip of feeding tube lies at the level of the distal duodenal sweep. Signed: Audie Smart MDReport Verified Date/Time: 11/11/2021 08:58:45 Reading Location: [facility] Diagnostic Imaging Reading Room - [facility] 1.310.12 POCT-GLUCOSE [id number] 08:14:48 Test Item Value Reference Range Interpretation Comments POC-GLUCOSE METER 173 mg/dL 70-110 H : TESTED A T [facility] 6720 (BEAKER) (test code = [facility], 1538) 49520: Quantitative Associate/Techni shasha ID = [id number] for Co mbs, Nilda BLOOD GAS, [id number] 08:10:18 Test Item Value Reference Range Interpretation Comments PH ARTERIAL (BEAKER) (test code = 7.47 7.35-7.45 H 383) PCO2 ARTERIAL (BEAKER) (test code 41 mm Hg 35-45 = 384) PO2 ARTERIAL (BEAKER) (test code = 156 mm Hg 80-90 H 385) O2 SATURATION ARTERIAL (BEAKER) 99.1 % 96.0-97.0 H (test code = 386) HCO3 ARTERIAL (BEAKER) (test code 30 mmol/L 21-29 H = 388) BASE EXCESS ARTERIAL (BEAKER) 5.5 mmol/L -2.0-3.0 H (test code = 387) PATIENT TEMPERATURE (BEAKER) (test 37.0 code = 1818) FIO2 (BEAKER) (test code = 1819) 40.0 POCT-GLUCOSE [id number] 07:20:47 Test Item Value Reference Range Interpretation Comments POC-GLUCOSE METER 190 mg/dL 70-110 H : TESTED A T [facility] 6720 (BEAKER) (test code = [facility], 1538) 94908: Quantitative Associate/Techni shasha ID = [id number] for Co mbs, Nilda BRONCHIAL CULTURE + GRAM [id number] 07:05:15 Test Item Value Reference Range Interpretation Comments CULTURE (BEAKER) <1+ Normal respiratory (test code = 1095) mary ann present GRAM STAIN RESULT 3+ WBCs (BEAKER) (test code = 1123) GRAM STAIN RESULT <1+ gram positive cocci (BEAKER) (test code = in pairs and clusters [id number]) POCT-GLUCOSE [id number] 06:38:22 Test Item Value Reference Range Interpretation Comments POC-GLUCOSE METER 223 mg/dL 70-110 H : TESTED A T [facility] 6720 (BEAKER) (test code = [facility], 1538) 67[address]: Quantitative Associate/Techni shasha ID = [id number] for Lili Melendrez POCT-GLUCOSE [id number] 05:19:53 Test Item Value Reference Range Interpretation Comments POC-GLUCOSE METER 255 mg/dL 70-110 H : TESTED A T [facility] 6720 (BEAKER) (test code = [facility] Gall[facility], 1538) 17375: Quantitative Associate/Techni shasha ID = [id number] for Lili Melendrez POCT-GLUCOSE [id number] 04:12:47 Test Item Value Reference Range Interpretation Comments POC-GLUCOSE METER 246 mg/dL 70-110 H : TESTED A T [facility] (BEAKER) (test code = [facility], 1538) 31078: Quantitative Associate/Techni shasha ID = [id number] for Lili Melendrez BASIC METABOLIC [id number] 03:16:55 Test Item Value Reference Range Interpretation Comments SODIUM (BEAKER) (test 140 meq/L 136-145 code = 381) POTASSIUM (BEAKER) 4.5 meq/L 3.5-5.1 (test code = 379) CHLORIDE (BEAKER) 103 meq/L 98-107 (test code = 382) CO2 (BEAKER) (test 28 meq/L 22-29 code = 355) BLOOD UREA NITROGEN 28 mg/dL 7-21 H (BEAKER) (test code = 354) CREATININE (BEAKER) 0.66 mg/dL 0.57-1.25 (test code = 358) GLUCOSE RANDOM 316 mg/dL 70-105 H (BEAKER) (test code = 652) CALCIUM (BEAKER) 8.2 mg/dL 8.4-10.2 L (test code = 697) EGFR (BEAKER) (test INSUFFIC IENT CLINICAL code = 1092) DATA TO CALCULA TE ESTIMATED GFR. Quantitative Associate ID - [id number] 03:15:06 Test Item Value Reference Range Interpretation Comments MAGNESIUM (BEAKER) (test code = 1.9 mg/dL 1.6-2.6 627) Quantitative Associate ID - [id number] 03:15:06 Test Item Value Reference Range Interpretation Comments PHOSPHORUS (BEAKER) (test code = 3.5 mg/dL 2.3-4.7 604) Quantitative Associate ID - [id number] 03:10:22 Test Item Value Reference Range Interpretation Comments PARTIAL THROMBOPLASTIN TIME 30.0 seconds 22.5-36.0 (BEAKER) (test code = 760) PROTHROMBIN TIME/[id number] 03:09:41 Test Item Value Reference Range Interpretation Comments PROTIME (BEAKER) 15.7 seconds 11.9-14.2 H (test code = 759) INR (BEAKER) (test 1.27 See_Comment [Automat ed message] code = 370) The system [employer] generated this result transmitted ref erence range: <=5.90. The reference range was not used to int erpret this result as normal/abnormal . RECOMMENDED COUMADIN/WARFARIN INR THERAPY RANGESSTANDARD DOSE: 2.0 - 3.0 Includes: PROPHYLAXIS for venous thrombosis, systemic embolization; TREATMENT for venous thrombosis and/or pulmonary embolus.HIGH RISK: Target INR is 2.5-3.5 for patients with mechanical heart valves.BLOOD GAS, [id number] 03:02:23 Test Item Value Reference Range Interpretation Comments PH ARTERIAL (BEAKER) (test code = 7.46 7.35-7.45 H 383) PCO2 ARTERIAL (BEAKER) (test code 42 mm Hg 35-45 = 384) PO2 ARTERIAL (BEAKER) (test code = 103 mm Hg 80-90 H 385) O2 SATURATION ARTERIAL (BEAKER) 97.9 % 96.0-97.0 H (test code = 386) HCO3 ARTERIAL (BEAKER) (test code 29 mmol/L 21-29 = 388) BASE EXCESS ARTERIAL (BEAKER) 4.7 mmol/L -2.0-3.0 H (test code = 387) PATIENT TEMPERATURE (BEAKER) (test 37.1 code = 1818) FIO2 (BEAKER) (test code = 1819) 40.0 CALCIUM, [id number] 02:57:43 Test Item Value Reference Range Interpretation Comments CALCIUM IONIZED (BEAKER) (test 1.15 mmol/L 1.12-1.27 code = 698) PH, BLOOD (BEAKER) (test code = 7.46 1810) OXYGEN SATURATION, [id number] 02:57:42 Test Item Value Reference Range Interpretation Comments O2 SATURATION (MEASURED) (BEAKER) 78.2 % (test code = 1455) CBC (HEMOGRAM ONLY)[id number] 02:56:22 Test Item Value Reference Range Interpretation Comments WHITE BLOOD CELL COUNT (BEAKER) 11.6 K/ L 3.5-10.5 H (test code = 775) RED BLOOD CELL COUNT (BEAKER) 2.85 M/ L 3.93-5.22 L (test code = 761) HEMOGLOBIN (BEAKER) (test code = 8.3 GM/DL 11.2-15.7 L 410) HEMATOCRIT (BEAKER) (test code = 25.9 % 34.1-44.9 L 411) MEAN CORPUSCULAR VOLUME (BEAKER) 90.9 fL 79.4-94.8 (test code = 753) MEAN CORPUSCULAR HEMOGLOBIN 29.1 pg 25.6-32.2 (BEAKER) (test code = 751) MEAN CORPUSCULAR HEMOGLOBIN CONC 32.0 GM/DL 32.2-35.5 L (BEAKER) (test code = 752) RED CELL DISTRIBUTION WIDTH 13.6 % 11.7-14.4 (BEAKER) (test code = 412) PLATELET COUNT (BEAKER) (test 227 K/CU MM 150-450 code = 756) MEAN PLATELET VOLUME (BEAKER) 11.0 fL 9.4-12.3 (test code = 754) NUCLEATED RED BLOOD CELLS 0 /100 WBC 0-0 (BEAKER) (test code = 413) POCT-GLUCOSE [id number] 02:15:18 Test Item Value Reference Range Interpretation Comments POC-GLUCOSE METER 282 mg/dL 70-110 H : TESTED A T [facility] 6720 (BEAKER) (test code = JAVAN SANCHE[place], 1538) 925[address]: Quantitative Associate/Techni shasha ID = [id number] for Lili Melendrez RAD, CHEST, 1 VIEW, NON [id number] 02:06:00while patient is intubated or has chest tubes.Reason for exam:->Status post CV SurgeryShould thisbe performed at the bedside?->Yes [facility] 1960 Sex: FFINAL REPORT RAD, CHEST, 1 VIEW, NON DEPT INDICATION: Status post CV Surgery COMPARISON: Prior day's exam FINDINGS: Portable frontal view of the chest. IMPRESSION: Support Lines: Stable. Lungs and pleura: Unchanged airspace and pleural opacities. No pneumothorax.Heart and mediastinum: Stable contours. Stable surgical changes.Additional findings: None. Signed: Cindy Maldonado MDReportVerified Date/Time: 11/11/2021 02:06:57 POCT-GLUCOSE [id number] 00:53:06 Test Item Value Reference Range Interpretation Comments POC-GLUCOSE METER 233 mg/dL 70-110 H : TESTED A T [facility] 6720 (LearnUp) (test code = [facility], 153) 82651: Quantitative Associate/Techni shasha ID = [id number] for We bster Lili VANCOMYCIN LEVEL, [id number] 21:32:17 Test Item Value Reference Range Interpretation Comments VANCOMYCIN TROUGH (BEAKER) (test 10.8 ug/mL 10.0-20.0 code = 522) Quantitative Associate ID - ADMINPOCT-GLUCOSE [id number] 21:17:11 Test Item Value Reference Range Interpretation Comments POC-GLUCOSE METER 191 mg/dL 70-110 H : TESTED A T [facility] 6720 ([employer]) (test code = [facility], 153) 84357: Quantitative Associate/Techni shasha ID = [id number] for We bster, Lili POCT-GLUCOSE [id number] 18:18:48 Test Item Value Reference Range Interpretation Comments POC-GLUCOSE METER 222 mg/dL 70-110 H : TESTED A T [facility] 6720 (LearnUp) (test code = [facility], 153) 62681: Quantitative Associate/Techni shasha ID = [id number] for JA COB, JESMI BASIC METABOLIC [id number] 17:02:59 Test Item Value Reference Range Interpretation Comments SODIUM (BEAKER) (test 141 meq/L 136-145 code = 381) POTASSIUM (BEAKER) 4.1 meq/L 3.5-5.1 (test code = 379) CHLORIDE (BEAKER) 105 meq/L 98-107 (test code = 382) CO2 (BEAKER) (test 28 meq/L 22-29 code = 355) BLOOD UREA NITROGEN 29 mg/dL 7-21 H (BEAKER) (test code = 354) CREATININE (BEAKER) 0.69 mg/dL 0.57-1.25 (test code = 358) GLUCOSE RANDOM 245 mg/dL 70-105 H (BEAKER) (test code = 652) CALCIUM (BEAKER) 8.8 mg/dL 8.4-10.2 (test code = 697) EGFR (BEAKER) (test INSUFFIC IENT CLINICAL code = 1092) DATA TO CALCULA TE ESTIMATED GFR. Quantitative Associate ID - [id number] 16:59:53 Test Item Value Reference Range Interpretation Comments MAGNESIUM (BEAKER) (test code = 2.1 mg/dL 1.6-2.6 627) Quantitative Associate ID - [id number] 16:59:53 Test Item Value Reference Range Interpretation Comments PHOSPHORUS (BEAKER) (test code = 2.9 mg/dL 2.3-4.7 604) Quantitative Associate ID - DBPOCT-GLUCOSE [id number] 16:27:50 Test Item Value Reference Range Interpretation Comments POC-GLUCOSE METER 212 mg/dL 70-110 H : TESTED A T [facility] 6720 (BEAKER) (test code = [employer] [facility], 153) 22849: Quantitative Associate/Techni shasha ID = [id number] for ANDREZ RODRIGUEZ CALCIUM, [id number] 16:22:49 Test Item Value Reference Range Interpretation Comments CALCIUM IONIZED (BEAKER) (test 1.15 mmol/L 1.12-1.27 code = 698) PH, BLOOD (BEAKER) (test code = 7.49 1810) POCT-GLUCOSE [id number] 15:10:51 Test Item Value Reference Range Interpretation Comments POC-GLUCOSE METER 232 mg/dL 70-110 H : TESTED A T [facility] 6720 (BEAKER) (test code = [facility] [employer] [facility], 1538) 21968: Quantitative Associate/Techni shasha ID = [id number] for ANDREZ RODRIGUEZ POCT-GLUCOSE [id number] 14:08:30 Test Item Value Reference Range Interpretation Comments POC-GLUCOSE METER 234 mg/dL 70-110 H : TESTED A T [facility] 6720 (BEAKER) (test code = JAVAN Gallo [facility], 1538) 11003: Quantitative Associate/Techni shasha ID = [id number] for HOLLI RODRIGUEZSMI POCT-GLUCOSE [id number] 12:58:11 Test Item Value Reference Range Interpretation Comments POC-GLUCOSE METER 286 mg/dL 70-110 H : TESTED A T [facility] 6720 (BEAKER) (test code = [facility], 1538) 50833: Quantitative Associate/Techni shasha ID = [id number] for HOLLI RODRIGUEZSMFaraz [id number] 10:32:44 Test Item Value Reference Range Interpretation Comments GLUCOSE RANDOM (BEAKER) (test code 349 mg/dL 70-105 H = 652) Quantitative Associate ID - [id number] 10:32:43 Test Item Value Reference Range Interpretation Comments POTASSIUM (BEAKER) (test code = 4.0 meq/L 3.5-5.1 379) Quantitative Associate ID - ADMINBLOOD GAS, [id number] 06:05:31 Test Item Value Reference Range Interpretation Comments PH ARTERIAL (BEAKER) (test code = 7.45 7.35-7.45 383) PCO2 ARTERIAL (BEAKER) (test code 41 mm Hg 35-45 = 384) PO2 ARTERIAL (BEAKER) (test code = 105 mm Hg 80-90 H 385) O2 SATURATION ARTERIAL (BEAKER) 98.1 % 96.0-97.0 H (test code = 386) HCO3 ARTERIAL (BEAKER) (test code 28 mmol/L 21-29 = 388) BASE EXCESS ARTERIAL (BEAKER) 3.2 mmol/L -2.0-3.0 H (test code = 387) PATIENT TEMPERATURE (BEAKER) (test 36.3 code = 1818) FIO2 (BEAKER) (test code = 1819) 40.0 POCT-GLUCOSE [id number] 06:02:29 Test Item Value Reference Range Interpretation Comments POC-GLUCOSE METER 300 mg/dL 70-110 H : TESTED A T [facility] 6720 (BEAKER) (test code = [facility] SANC[place], 1538) 68860: Quantitative Associate/Techni shasha ID = [id number] for Lili Melendrez BASIC METABOLIC [id number] 03:48:13 Test Item Value Reference Range Interpretation Comments SODIUM (BEAKER) (test 141 meq/L 136-145 code = 381) POTASSIUM (BEAKER) 3.9 meq/L 3.5-5.1 (test code = 379) CHLORIDE (BEAKER) 104 meq/L 98-107 (test code = 382) CO2 (BEAKER) (test 27 meq/L 22-29 code = 355) BLOOD UREA NITROGEN 31 mg/dL 7-21 H (BEAKER) (test code = 354) CREATININE (BEAKER) 0.68 mg/dL 0.57-1.25 (test code = 358) GLUCOSE RANDOM 303 mg/dL 70-105 H (BEAKER) (test code = 652) CALCIUM (BEAKER) 8.9 mg/dL 8.4-10.2 (test code = 697) EGFR (BEAKER) (test INSUFFIC IENT CLINICAL code = 1092) DATA TO CALCULA TE ESTIMATED GFR. Quantitative Associate ID - VIKKI [id number] 03:34:33 Test Item Value Reference Range Interpretation Comments MAGNESIUM (BEAKER) (test code = 1.8 mg/dL 1.6-2.6 627) Quantitative Associate ID - VIKKI [id number] 03:34:33 Test Item Value Reference Range Interpretation Comments PHOSPHORUS (BEAKER) (test code = 4.1 mg/dL 2.3-4.7 604) Quantitative Associate ID - VIKKI [id number] 03:31:31 Test Item Value Reference Range Interpretation Comments PARTIAL THROMBOPLASTIN TIME 33.3 seconds 22.5-36.0 (BEAKER) (test code = 760) RAD, CHEST, 1 VIEW, NON [id number] 03:17:00while patient is intubated or has chest tubes.Reason for exam:->Status post CV SurgeryShould thisbe performed at the bedside?->Yes [facility] 1960 Sex: FFINAL REPORT CLINICAL INDICATION: Status post CV Surgery Comparison: 11/09/2021 The cardiomediastinal contours are stable. Extensive bilateral parenchymal opacities are slightly improved, suggesting improving pulmonary edema. There is no pneumothorax. Support lines are stable. Signed: Kingsley Garcia MDReport Verified Date/Time: 11/10/2021 03:17:22 CBC (HEMOGRAM ONLY)2021-11-10 03:14:43 Test Item Value Reference Range Interpretation Comments WHITE BLOOD CELL COUNT (BEAKER) 13.3 K/ L 3.5-10.5 H (test code = 775) RED BLOOD CELL COUNT (BEAKER) 2.92 M/ L 3.93-5.22 L (test code = 761) HEMOGLOBIN (BEAKER) (test code = 8.5 GM/DL 11.2-15.7 L 410) HEMATOCRIT (BEAKER) (test code = 26.1 % 34.1-44.9 L 411) MEAN CORPUSCULAR VOLUME (BEAKER) 89.4 fL 79.4-94.8 (test code = 753) MEAN CORPUSCULAR HEMOGLOBIN 29.1 pg 25.6-32.2 (BEAKER) (test code = 751) MEAN CORPUSCULAR HEMOGLOBIN CONC 32.6 GM/DL 32.2-35.5 (BEAKER) (test code = 752) RED CELL DISTRIBUTION WIDTH 13.6 % 11.7-14.4 (BEAKER) (test code = 412) PLATELET COUNT (BEAKER) (test 195 K/CU MM 150-450 code = 756) MEAN PLATELET VOLUME (BEAKER) 11.5 fL 9.4-12.3 (test code = 754) NUCLEATED RED BLOOD CELLS 0 /100 WBC 0-0 (BEAKER) (test code = 413) BLOOD GAS, [id number] 03:07:03 Test Item Value Reference Range Interpretation Comments PH ARTERIAL (BEAKER) (test code = 7.46 7.35-7.45 H 383) PCO2 ARTERIAL (BEAKER) (test code 39 mm Hg 35-45 = 384) PO2 ARTERIAL (BEAKER) (test code = 76 mm Hg 80-90 L 385) O2 SATURATION ARTERIAL (BEAKER) 96.4 % 96.0-97.0 (test code = 386) HCO3 ARTERIAL (BEAKER) (test code 28 mmol/L 21-29 = 388) BASE EXCESS ARTERIAL (BEAKER) 3.5 mmol/L -2.0-3.0 H (test code = 387) PATIENT TEMPERATURE (BEAKER) (test 35.9 code = 1818) FIO2 (BEAKER) (test code = 1819) 40.0 OXYGEN SATURATION, [id number] 03:06:41 Test Item Value Reference Range Interpretation Comments O2 SATURATION (MEASURED) (BEAKER) 67.2 % (test code = 1455) CALCIUM, [id number] 03:06:20 Test Item Value Reference Range Interpretation Comments CALCIUM IONIZED (BEAKER) (test 1.16 mmol/L 1.12-1.27 code = 698) PH, BLOOD (BEAKER) (test code = 7.45 1810) POCT-GLUCOSE [id number] 22:46:20 Test Item Value Reference Range Interpretation Comments POC-GLUCOSE METER 227 mg/dL 70-110 H : TESTED A T [facility] 6720 (BEAKER) (test code [facility], = 1538) 84173: Quantitative Associate/Techni shasha ID = [id number] for ISAAC TO, AGNESMATTHIEUSHAQ RAD, CHEST, 1 VIEW, NON [id number] 18:11:00Reason for exam:->picc placementShould this be performed at the bedside?->Yes [facility] 1960 Sex: FFINAL REPORT CLINICAL INDICATION: picc placement Comparison: Same dated 0052 hours A left PICC line tip overlies the SVC. The cardiomediastinal contours are stable. Extensive bilateral parenchymal opacities are unchanged. There is no pneumothorax. Support lines are otherwise stable. Signed: Kingsley Garciaeport Verified Date/Time: 11/09/2021 18:11:47 SPIN/CONCENTRATION [id number] 10:42:56 Test Item Value Reference Range Interpretation Comments CONCENTRATION CHARGED (BEAKER) (test Done code = 2657) POCT-GLUCOSE [id number] 10:15:08 Test Item Value Reference Range Interpretation Comments POC-GLUCOSE METER 163 mg/dL 70-110 H : TESTED A T [facility] 6720 (BEAKER) (test code [facility], = 1538) 65215: Quantitative Associate/Techni shasha ID = [id number] for ISAAC TO, [facility] [place] SARS-COV2/RT-PCR ([facility])2021-11-09 07:31:00 Test Item Value Reference Range Interpretation Comments SARS-COV2/RT-PCR (test Negative Not Detected, Negative, code = 8239738) See external report for linked test SARS-COV-2 PERFORMING LAB [facility] AMRITA (test code = 2168752) Negative result for this test determines that SARS-CoV-2 RNA was not present in the specimen above the Limit of Detection (LOD). However, Negative results do not preclude SARS-CoV-2 infection and should not be used as the sole basis for treatment or patient management decisions. Negative results must be combined with clinical observations, patient history, and epidemiological information. A false negative result may occur if a specimen is improperly collected, transported or handled. A false negative result should be considered if patient's recent exposures or clinical presentation indicate that COVID-19 (SARS-CoV-2) is likely and diagnostic tests for other causes of illness are negative. Re-testing should be considered in cases of suspected false negatives.The limit of detection for this assay is 800 copies/mL.This SARS CoV-2 test is a real-time RT-PCR test intended for the qualitative detection of nucleic acid from SARS-CoV-2 in a nasopharyngeal swab specimen collected from individuals suspected of COVID-19 by their healthcare provider.This test has not been Food and Drug Administration (FDA) cleared or approved. This is a modified version of an approved Emergency Use Authorization (EUA) and is in the process of review by the FDA. Once authorized by the FDA, the issued EUA will be effective until the declaration that circumstances exist justifying the authorization of the emergency use ofin vitro diagnostic tests for detection and/or diagnosis of COVID-19 is terminated under Section 564(b)(2) of the Act or the EUA is revoked under Section 564(g) of the Act.Fact Sheet for Healthcare Prov iders:https://www.[employer]/sites/default/files/product/documents/Fact_Sheet_HC _Lxgwkiqdd_Nofv_IHQV-SbI-9.pdfFact Sheet for Healthcare Patients:https://www.[employer]/sites/default/files/product/docume nts/Gwxu_Neuxv_Fnyjyawk_Nlsl_HBBM-MrH-9.pdfPerforming Laboratory:[facility], [place] [address]UVBL-[id number] METER 2021-11-09 06:39:53 Test Item Value Reference Range Interpretation Comments POC-GLUCOSE METER 172 mg/dL 70-110 H : TESTED A T [facility] 6720 (BEAKER) (test code = JAVAN Gallo [facility], 1538) 32476: Quantitative Associate/Techni shasha ID = [id number] for [place] CLEMONS BLOOD GAS, [id number] 05:49:47 Test Item Value Reference Range Interpretation Comments PH ARTERIAL (BEAKER) (test code = 7.47 7.35-7.45 H 383) PCO2 ARTERIAL (BEAKER) (test code 41 mm Hg 35-45 = 384) PO2 ARTERIAL (BEAKER) (test code = 89 mm Hg 80-90 385) O2 SATURATION ARTERIAL (BEAKER) 97.2 % 96.0-97.0 H (test code = 386) HCO3 ARTERIAL (BEAKER) (test code 29 mmol/L 21-29 = 388) BASE EXCESS ARTERIAL (BEAKER) 5.2 mmol/L -2.0-3.0 H (test code = 387) PATIENT TEMPERATURE (BEAKER) (test 37.1 code = 1818) FIO2 (BEAKER) (test code = 1819) 60.0 POCT-GLUCOSE [id number] 05:49:39 Test Item Value Reference Range Interpretation Comments POC-GLUCOSE METER 174 mg/dL 70-110 H : TESTED A T [facility] 6720 (BEAKER) (test code = [facility] SANCHE[place], 1538) 26502: Quantitative Associate/Techni shsaha ID = [id number] for ROSIO PARKER (Joey)[place], CHEST, 1 VIEW, NON [id number] 04:34:00while patient is intubated or has chest tubes.Reason for exam:->Status post CV SurgeryShould thisbe performed at the bedside?->Yes [facility] LA[facility] : 1960 Sex: FFINAL REPORT CLINICAL INDICATION: Status post CV Surgery Comparison: 11/08/2021 at 1526 hours The cardiomediastinal contours are stable. Extensive bilateral parenchymal opacities are unchanged. There is no pneumothorax. Support lines are stable. Signed: Kingsley Garciamidstate medical center Verified Date/Time: 11/09/2021 04:34:54 C METABOLIC [id number] 04:01:08 Test Item Value Reference Range Interpretation Comments SODIUM (BEAKER) (test 138 meq/L 136-145 code = 381) POTASSIUM (BEAKER) 3.9 meq/L 3.5-5.1 (test code = 379) CHLORIDE (BEAKER) 103 meq/L 98-107 (test code = 382) CO2 (BEAKER) (test 28 meq/L 22-29 code = 355) BLOOD UREA NITROGEN 18 mg/dL 7-21 (BEAKER) (test code = 354) CREATININE (BEAKER) 0.57 mg/dL 0.57-1.25 (test code = 358) GLUCOSE RANDOM 156 mg/dL 70-105 H (BEAKER) (test code = 652) CALCIUM (BEAKER) 9.0 mg/dL 8.4-10.2 (test code = 697) EGFR (BEAKER) (test INSUFFIC IENT CLINICAL code = 1092) DATA TO CALCULA TE ESTIMATED GFR. Quantitative Associate ID - BRANDY [id number] 03:54:11 Test Item Value Reference Range Interpretation Comments MAGNESIUM (BEAKER) (test code = 2.0 mg/dL 1.6-2.6 627) Quantitative Associate ID - BRANDY [id number] 03:54:11 Test Item Value Reference Range Interpretation Comments PHOSPHORUS (BEAKER) (test code = 2.8 mg/dL 2.3-4.7 604) Quantitative Associate ID - BRANDY [id number] 03:46:49 Test Item Value Reference Range Interpretation Comments PROTIME (BEAKER) (test 16.6 seconds 11.9-14.2 H code = 759) INR (BEAKER) (test 1.37 See_Comment [Automat ed code = 370) message] The sy stem which generated this result transmitted reference range : <=5.90. The reference range was not used to interpret this result as normal/abnormal . PARTIAL THROMBOPLASTIN 38.5 seconds 22.5-36.0 H TIME (BEAKER) (test code = 760) RECOMMENDED COUMADIN/WARFARIN INR THERAPY RANGESSTANDARD DOSE: 2.0 - 3.0 Includes: PROPHYLAXIS for venous thrombosis, systemic embolization; TREATMENT for venous thrombosis and/or pulmonary embolus.HIGH RISK: Target INR is 2.5-3.5 for patients with mechanical heart valves.[id number] 03:46:11 Test Item Value Reference Range Interpretation Comments FIBRINOGEN LEVEL (BEAKER) (test 655 mg/dl 225-434 H code = 658) CBC W/PLT COUNT & AUTO [id number] 03:39:33 Test Item Value Reference Range Interpretation Comments WHITE BLOOD CELL COUNT (BEAKER) 16.2 K/ L 3.5-10.5 H (test code = 775) RED BLOOD CELL COUNT (BEAKER) 2.93 M/ L 3.93-5.22 L (test code = 761) HEMOGLOBIN (BEAKER) (test code = 8.7 GM/DL 11.2-15.7 L 410) HEMATOCRIT (BEAKER) (test code = 26.0 % 34.1-44.9 L 411) MEAN CORPUSCULAR VOLUME (BEAKER) 88.7 fL 79.4-94.8 (test code = 753) MEAN CORPUSCULAR HEMOGLOBIN 29.7 pg 25.6-32.2 (BEAKER) (test code = 751) MEAN CORPUSCULAR HEMOGLOBIN CONC 33.5 GM/DL 32.2-35.5 (BEAKER) (test code = 752) RED CELL DISTRIBUTION WIDTH 13.4 % 11.7-14.4 (BEAKER) (test code = 412) PLATELET COUNT (BEAKER) (test 138 K/CU MM 150-450 L code = 756) MEAN PLATELET VOLUME (BEAKER) 11.9 fL 9.4-12.3 (test code = 754) NUCLEATED RED BLOOD CELLS 0 /100 WBC 0-0 (BEAKER) (test code = 413) NEUTROPHILS RELATIVE PERCENT 91 % (BEAKER) (test code = 429) LYMPHOCYTES RELATIVE PERCENT 5 % (BEAKER) (test code = 430) MONOCYTES RELATIVE PERCENT 3 % (BEAKER) (test code = 431) EOSINOPHILS RELATIVE PERCENT 0 % (BEAKER) (test code = 432) BASOPHILS RELATIVE PERCENT 0 % (BEAKER) (test code = 437) NEUTROPHILS ABSOLUTE COUNT 14.75 K/ L 1.56-6.13 H (BEAKER) (test code = 670) LYMPHOCYTES ABSOLUTE COUNT 0.79 K/ L 1.18-3.74 L (BEAKER) (test code = 414) MONOCYTES ABSOLUTE COUNT (BEAKER) 0.52 K/ L 0.24-0.36 H (test code = 415) EOSINOPHILS ABSOLUTE COUNT 0.00 K/ L 0.04-0.36 L (BEAKER) (test code = 416) BASOPHILS ABSOLUTE COUNT (BEAKER) 0.01 K/ L 0.01-0.08 (test code = 417) IMMATURE GRANULOCYTES-RELATIVE 1 % 0-1 PERCENT (BEAKER) (test code = 2801) LACTIC ACID, [id number] 03:38:45 Test Item Value Reference Range Interpretation Comments LACTATE BLOOD ARTERIAL (2) 0.9 mmol/L 0.5-2.2 (BEAKER) (test code = 2874) Quantitative Associate ID - BRANDY MCALCIUM, [id number] 03:30:47 Test Item Value Reference Range Interpretation Comments CALCIUM IONIZED (BEAKER) (test 1.12 mmol/L 1.12-1.27 code = 698) PH, BLOOD (BEAKER) (test code = 7.54 1810) BLOOD GAS, [id number] 03:29:20 Test Item Value Reference Range Interpretation Comments PH ARTERIAL (BEAKER) (test code = 7.54 7.35-7.45 H 383) PCO2 ARTERIAL (BEAKER) (test code 35 mm Hg 35-45 = 384) PO2 ARTERIAL (BEAKER) (test code = 137 mm Hg 80-90 H 385) O2 SATURATION ARTERIAL (BEAKER) 99.0 % 96.0-97.0 H (test code = 386) HCO3 ARTERIAL (BEAKER) (test code 29 mmol/L 21-29 = 388) BASE EXCESS ARTERIAL (BEAKER) 6.1 mmol/L -2.0-3.0 H (test code = 387) PATIENT TEMPERATURE (BEAKER) (test 36.9 code = 1818) FIO2 (BEAKER) (test code = 1819) 60.0 OXYGEN SATURATION, [id number] 03:28:05 Test Item Value Reference Range Interpretation Comments O2 SATURATION (MEASURED) (BEAKER) 71.6 % (test code = 1455) POCT-GLUCOSE [id number] 02:31:45 Test Item Value Reference Range Interpretation Comments POC-GLUCOSE METER 154 mg/dL 70-110 H : TESTED A T [facility] 6720 (BEAKER) (test code = JAVAN Gallo [facility], 1538) 37233: Quantitative Associate/Techni shasha ID = [id number] for ROSIO PARKER (Joey)[place] POCT-GLUCOSE [id number] 00:31:32 Test Item Value Reference Range Interpretation Comments POC-GLUCOSE METER 166 mg/dL 70-110 H : TESTED A T [facility] 6720 (KRYSTAL) (test code = JAVAN Gallo [facility], 1538) 55348: Quantitative Associate/Techni shasha ID = [id number] for ROSIO PARKER (V)[place] RAD, ABDOMEN/KUB, 1 VIEW [id number] 00:15:00Reason for exam:->[facility] : 1960 Sex: FFINAL REPORT CLINICAL HISTORY: Feeding tube placement COMPARISON: None. FINDINGS: A single supine image of the abdomen is submitted. The tip of a feeding tube overlies the gastric pylorus/duodenal bulb. The abdominal bowel gas pattern is unobstructed. There is no focus of dilated large orsmall bowel. Surgical clips overlie the right upper quadrant. There is no acute bony abnormality. Signed: Kingsley Garcia Verified Date/Time: 11/09/2021 00:15:30 -GLUCOSE [id number] 23:50:51 Test Item Value Reference Range Interpretation Comments POC-GLUCOSE METER 166 mg/dL 70-110 H : TESTED A T [facility] 6720 (BEAKER) (test code = [facility] [place], 1538) [address]88[address]: Quantitative Associate/Techni shasha ID = [id number] for ROSIO PARKER (V)[place] BASIC METABOLIC [id number] 22:22:16 Test Item Value Reference Range Interpretation Comments SODIUM (BEAKER) (test 138 meq/L 136-145 code = 381) POTASSIUM (BEAKER) 3.7 meq/L 3.5-5.1 Specimen slightly (test code = 379) hemolyzed CHLORIDE (BEAKER) 99 meq/L 98-107 (test code = 382) CO2 (BEAKER) (test 27 meq/L 22-29 code = 355) BLOOD UREA NITROGEN 17 mg/dL 7-21 (BEAKER) (test code = 354) CREATININE (BEAKER) 0.68 mg/dL 0.57-1.25 Specimen slightly (test code = 358) hemolyzed GLUCOSE RANDOM 210 mg/dL 70-105 H (BEAKER) (test code = 652) CALCIUM (BEAKER) 8.7 mg/dL 8.4-10.2 (test code = 697) EGFR (BEAKER) (test INSUFFIC IENT CLINICAL code = 1092) DATA TO CALCULA TE ESTIMATED GFR. Quantitative Associate ID - [id number] 22:19:58 Test Item Value Reference Range Interpretation Comments MAGNESIUM (BEAKER) 2.1 mg/dL 1.6-2.6 Specimen slightly (test code = 627) hemolyzed Quantitative Associate ID - BSLACTIC ACID, [id number] 22:14:10 Test Item Value Reference Range Interpretation Comments LACTATE BLOOD ARTERIAL (2) 1.0 mmol/L 0.5-2.2 (BEAKER) (test code = 2874) Quantitative Associate ID - BSPOCT-GLUCOSE [id number] 22:00:48 Test Item Value Reference Range Interpretation Comments POC-GLUCOSE METER 196 mg/dL 70-110 H : TESTED A T [facility] 6720 (BEAKER) (test code = [facility] Cleo [facility], 1538) 65773: Quantitative Associate/Techni shasha ID = [id number] for ROSIO PARKER (Joey)[place] CBC (HEMOGRAM ONLY)2021-11-08 21:57:28 Test Item Value Reference Range Interpretation Comments WHITE BLOOD CELL COUNT (BEAKER) 23.9 K/ L 3.5-10.5 H (test code = 775) RED BLOOD CELL COUNT (BEAKER) 3.09 M/ L 3.93-5.22 L (test code = 761) HEMOGLOBIN (BEAKER) (test code = 9.2 GM/DL 11.2-15.7 L 410) HEMATOCRIT (BEAKER) (test code = 27.6 % 34.1-44.9 L 411) MEAN CORPUSCULAR VOLUME (BEAKER) 89.3 fL 79.4-94.8 (test code = 753) MEAN CORPUSCULAR HEMOGLOBIN 29.8 pg 25.6-32.2 (BEAKER) (test code = 751) MEAN CORPUSCULAR HEMOGLOBIN CONC 33.3 GM/DL 32.2-35.5 (BEAKER) (test code = 752) RED CELL DISTRIBUTION WIDTH 13.5 % 11.7-14.4 (BEAKER) (test code = 412) PLATELET COUNT (BEAKER) (test 158 K/CU MM 150-450 code = 756) MEAN PLATELET VOLUME (BEAKER) 11.6 fL 9.4-12.3 (test code = 754) NUCLEATED RED BLOOD CELLS 0 /100 WBC 0-0 (BEAKER) (test code = 413) BLOOD GAS, [id number] 21:52:58 Test Item Value Reference Range Interpretation Comments PH ARTERIAL (BEAKER) (test code = 7.51 7.35-7.45 H 383) PCO2 ARTERIAL (BEAKER) (test code 37 mm Hg 35-45 = 384) PO2 ARTERIAL (BEAKER) (test code = 124 mm Hg 80-90 H 385) O2 SATURATION ARTERIAL (BEAKER) 98.8 % 96.0-97.0 H (test code = 386) HCO3 ARTERIAL (BEAKER) (test code 29 mmol/L 21-29 = 388) BASE EXCESS ARTERIAL (BEAKER) 5.1 mmol/L -2.0-3.0 H (test code = 387) PATIENT TEMPERATURE (BEAKER) (test 36.1 code = 1818) FIO2 (BEAKER) (test code = 1819) 100.0 POCT-GLUCOSE [id number] 18:56:08 Test Item Value Reference Range Interpretation Comments POC-GLUCOSE METER 215 mg/dL 70-110 H : TESTED A T [facility] 6720 (BEAKER) (test code = [place], 1538) [address]: Quantitative Associate/Techni shasha ID = [id number] for Sheri Pizano BASIC METABOLIC [id number] 15:59:17 Test Item Value Reference Range Interpretation Comments SODIUM (BEAKER) (test 137 meq/L 136-145 code = 381) POTASSIUM (BEAKER) 4.6 meq/L 3.5-5.1 (test code = 379) CHLORIDE (BEAKER) 98 meq/L 98-107 (test code = 382) CO2 (BEAKER) (test 29 meq/L 22-29 code = 355) BLOOD UREA NITROGEN 13 mg/dL 7-21 (BEAKER) (test code = 354) CREATININE (BEAKER) 0.64 mg/dL 0.57-1.25 (test code = 358) GLUCOSE RANDOM 222 mg/dL 70-105 H (BEAKER) (test code = 652) CALCIUM (BEAKER) 8.8 mg/dL 8.4-10.2 (test code = 697) EGFR (BEAKER) (test INSUFFIC IENT CLINICAL code = 1092) DATA TO CALCULA TE ESTIMATED GFR. Quantitative Associate ID - BSLACTIC ACID, [id number] 15:50:07 Test Item Value Reference Range Interpretation Comments LACTATE BLOOD ARTERIAL (2) 1.0 mmol/L 0.5-2.2 (BEAKER) (test code = 2874) Quantitative Associate ID - BSRAD, CHEST, 1 VIEW, NON [id number] 15:45:00Reason for exam:- >s/p intubationShould this be performed at the bedside?->Yes [facility] : 1960 Sex: FFINAL REPORT CLINICAL HISTORY: s/p intubation TECHNIQUE: 1 view of the chest. COMPARISON: 11/08/2021 IMPRESSION: New ETT roughly 3 cm above the jana. Other lines and tubes unchanged. No pneumothorax. Diffuse bilateral pulmonary infiltrates unchanged. Small pleural effusions cannot be excluded. The cardiomediastinal silhouette is magnified by technique with sternotomy wires. Signed: Moise Stephen MDReport Verified Date/Time: 11/08/2021 15:45:57 Reading Location: [facility] Radiology Reading Room GLUCOSE-STAT [id number] 15:37:18 Test Item Value Reference Range Interpretation Comments GLUCOSE RANDOM (BEAKER) (test code 224 mg/dL 70-110 H = 652) HGB/HCT (H&H) - STAT [id number] 15:37:18 Test Item Value Reference Range Interpretation Comments HEMOGLOBIN (BEAKER) (test code = 10.0 GM/DL 12.0-15.0 L 410) HEMATOCRIT (BEAKER) (test code = 29.0 % 36.0-45.0 L 411) BLOOD GAS, [id number] 15:37:17 Test Item Value Reference Range Interpretation Comments PH ARTERIAL (BEAKER) (test code = 7.45 7.35-7.45 383) PCO2 ARTERIAL (BEAKER) (test code 41 mm Hg 35-45 = 384) PO2 ARTERIAL (BEAKER) (test code = 150 mm Hg 80-90 H 385) O2 SATURATION ARTERIAL (BEAKER) 99.0 % 96.0-97.0 H (test code = 386) HCO3 ARTERIAL (BEAKER) (test code 28 mmol/L 21-29 = 388) BASE EXCESS ARTERIAL (BEAKER) 3.8 mmol/L -2.0-3.0 H (test code = 387) PATIENT TEMPERATURE (BEAKER) (test 36.9 code = 1818) FIO2 (BEAKER) (test code = 1819) 100.0 SODIUM NA-STAT [id number] 15:37:17 Test Item Value Reference Range Interpretation Comments SODIUM (BEAKER) (test code = 381) 134 meq/L 136-145 L POTASSIUM-STAT [id number] 15:36:45 Test Item Value Reference Range Interpretation Comments POTASSIUM (BEAKER) (test code = 4.6 meq/L 3.6-5.5 379) POCT-GLUCOSE [id number] 13:10:22 Test Item Value Reference Range Interpretation Comments POC-GLUCOSE METER 196 mg/dL 70-110 H : TESTED A T [facility] 6720 (BEAKER) (test code = JAVAN Gallo [place], 1538) [address]: Quantitative Associate/Techni shasha ID = [id number] for Lisa rosas (contract), Jina ryl BASIC METABOLIC [id number] 12:42:31 Test Item Value Reference Range Interpretation Comments SODIUM (BEAKER) (test 137 meq/L 136-145 code = 381) POTASSIUM (BEAKER) 3.9 meq/L 3.5-5.1 (test code = 379) CHLORIDE (BEAKER) 99 meq/L 98-107 (test code = 382) CO2 (BEAKER) (test 27 meq/L 22-29 code = 355) BLOOD UREA NITROGEN 14 mg/dL 7-21 (BEAKER) (test code = 354) CREATININE (BEAKER) 0.61 mg/dL 0.57-1.25 (test code = 358) GLUCOSE RANDOM 205 mg/dL 70-105 H (BEAKER) (test code = 652) CALCIUM (BEAKER) 8.5 mg/dL 8.4-10.2 (test code = 697) EGFR (BEAKER) (test INSUFFIC IENT CLINICAL code = 1092) DATA TO CALCULA TE ESTIMATED GFR. Quantitative Associate ID - [id number] 12:41:39 Test Item Value Reference Range Interpretation Comments MAGNESIUM (BEAKER) (test code = 1.8 mg/dL 1.6-2.6 627) Quantitative Associate ID - ADMINBLOOD GAS, [id number] 12:20:12 Test Item Value Reference Range Interpretation Comments PH ARTERIAL (BEAKER) (test code = 7.43 7.35-7.45 383) PCO2 ARTERIAL (BEAKER) (test code 43 mm Hg 35-45 = 384) PO2 ARTERIAL (BEAKER) (test code = 71 mm Hg 80-90 L 385) O2 SATURATION ARTERIAL (BEAKER) 94.7 % 96.0-97.0 L (test code = 386) HCO3 ARTERIAL (BEAKER) (test code 28 mmol/L 21-29 = 388) BASE EXCESS ARTERIAL (BEAKER) 3.3 mmol/L -2.0-3.0 H (test code = 387) PATIENT TEMPERATURE (BEAKER) (test 36.7 code = 1818) FIO2 (BEAKER) (test code = 1819) 60.0 CALCIUM, [id number] 12:17:16 Test Item Value Reference Range Interpretation Comments CALCIUM IONIZED (BEAKER) (test 1.13 mmol/L 1.12-1.27 code = 698) PH, BLOOD (BEAKER) (test code = 7.42 1810) POCT-GLUCOSE [id number] 09:12:31 Test Item Value Reference Range Interpretation Comments POC-GLUCOSE METER 159 mg/dL 70-110 H : TESTED A T [facility] 6720 (BEAKER) (test code = [facility] Gallo [place], 1538) 164[address]: Quantitative Associate/Techni shasha ID = [id number] for Lisa rosas (contract), Jina ryl RAD, CHEST, 1 VIEW, NON [id number] 08:17:00Reason for exam:->dyspnea, concern for enlarging ptxShould this be performed at the bedside?->Yes [facility] : 1960 Sex: FFINAL REPORT CLINICAL HISTORY: dyspnea, concern for enlarging ptx TECHNIQUE: 1 view of the chest. COMPARISON: 11/08/2021 IMPRESSION: The supporting lines and tubes are similar appearing. Previous trace biapical pneumothoraces are no longer seen. However, diffuse bilateral airspace opacities have increased. The cardiomediastinal silhouette is magnified by technique with sternotomy wires. Signed: Moise Stephen MDReport Verified Date/Time: 11/08/2021 08:17:30 Reading Location: [facility] Reading Room GLUCOSE-STAT [id number] 07:18:08 Test Item Value Reference Range Interpretation Comments GLUCOSE RANDOM (BEAKER) (test code 156 mg/dL 70-110 H = 652) HGB/HCT (H&H) - STAT [id number] 07:18:08 Test Item Value Reference Range Interpretation Comments HEMOGLOBIN (BEAKER) (test code = 9.8 GM/DL 12.0-15.0 L 410) HEMATOCRIT (BEAKER) (test code = 29.0 % 36.0-45.0 L 411) SODIUM NA-STAT [id number] 07:18:07 Test Item Value Reference Range Interpretation Comments SODIUM (BEAKER) (test code = 381) 134 meq/L 136-145 L BLOOD GAS, [id number] 07:18:06 Test Item Value Reference Range Interpretation Comments PH ARTERIAL (BEAKER) (test code = 7.44 7.35-7.45 383) PCO2 ARTERIAL (BEAKER) (test code 41 mm Hg 35-45 = 384) PO2 ARTERIAL (BEAKER) (test code = 92 mm Hg 80-90 H 385) O2 SATURATION ARTERIAL (BEAKER) 97.6 % 96.0-97.0 H (test code = 386) HCO3 ARTERIAL (BEAKER) (test code 28 mmol/L 21-29 = 388) BASE EXCESS ARTERIAL (BEAKER) 3.2 mmol/L -2.0-3.0 H (test code = 387) PATIENT TEMPERATURE (BEAKER) (test 35.6 code = 1818) FIO2 (BEAKER) (test code = 1819) 21.0 POTASSIUM-STAT [id number] 07:17:54 Test Item Value Reference Range Interpretation Comments POTASSIUM (BEAKER) (test code = 3.7 meq/L 3.6-5.5 379) KETONE, [id number] 05:14:06 Test Item Value Reference Range Interpretation Comments KETONES, BLOOD (BEAKER) (test code 0.4 mmol/L <0.4 H = 1103) BLOOD GAS, [id number] 04:20:35 Test Item Value Reference Range Interpretation Comments PH ARTERIAL (BEAKER) (test code = 7.39 7.35-7.45 383) PCO2 ARTERIAL (BEAKER) (test code 47 mm Hg 35-45 H = 384) PO2 ARTERIAL (BEAKER) (test code = 78 mm Hg 80-90 L 385) O2 SATURATION ARTERIAL (BEAKER) 95.5 % 96.0-97.0 L (test code = 386) HCO3 ARTERIAL (BEAKER) (test code 28 mmol/L 21-29 = 388) BASE EXCESS ARTERIAL (BEAKER) 2.2 mmol/L -2.0-3.0 (test code = 387) PATIENT TEMPERATURE (BEAKER) (test 36.7 code = 1818) FIO2 (BEAKER) (test code = 1819) 28.0 BASIC METABOLIC [id number] 04:17:29 Test Item Value Reference Range Interpretation Comments SODIUM (BEAKER) (test 136 meq/L 136-145 code = 381) POTASSIUM (BEAKER) 4.4 meq/L 3.5-5.1 (test code = 379) CHLORIDE (BEAKER) 101 meq/L 98-107 (test code = 382) CO2 (BEAKER) (test 26 meq/L 22-29 code = 355) BLOOD UREA NITROGEN 14 mg/dL 7-21 (BEAKER) (test code = 354) CREATININE (BEAKER) 0.62 mg/dL 0.57-1.25 (test code = 358) GLUCOSE RANDOM 230 mg/dL 70-105 H (BEAKER) (test code = 652) CALCIUM (BEAKER) 8.7 mg/dL 8.4-10.2 (test code = 697) EGFR (BEAKER) (test INSUFFIC IENT CLINICAL code = 1092) DATA TO CALCULA TE ESTIMATED GFR. Quantitative Associate ID - ADMINOXYGEN SATURATION, [id number] 04:15:41 Test Item Value Reference Range Interpretation Comments O2 SATURATION (MEASURED) (BEAKER) 70.1 % (test code = 1455) [id number] 04:13:59 Test Item Value Reference Range Interpretation Comments MAGNESIUM (BEAKER) (test code = 1.8 mg/dL 1.6-2.6 627) Quantitative Associate ID - [id number] 04:13:59 Test Item Value Reference Range Interpretation Comments PHOSPHORUS (BEAKER) (test code = 3.4 mg/dL 2.3-4.7 604) Quantitative Associate ID - ADMINCALCIUM, [id number] 04:12:55 Test Item Value Reference Range Interpretation Comments CALCIUM IONIZED (BEAKER) (test 1.15 mmol/L 1.12-1.27 code = 698) PH, BLOOD (BEAKER) (test code = 7.38 1810) RAD, CHEST, 1 VIEW, NON [id number] 04:11:00while patient is intubated or has chest tubes.Reason for exam:->Status post CV SurgeryShould thisbe performed at the bedside?->Yes [facility] 1960 Sex: FFINAL REPORT CLINICAL INDICATION: Status post CV Surgery Comparison: 11/07/2021 The cardiomediastinal contours are stable. Central pulmonary vascular congestion and bilateral parenchymal and pleural opacities are unchanged. Small biapical pneumothoraces are present. The mediastinal drain has been removed. Remaining support lines, including bilateral chest tubes, are stable. Signed: Kingsley Garcia Verified Date/Time: 11/08/2021 04:11:18 CBC (HEMOGRAM ONLY) 2021-11-08 03:57:49 Test Item Value Reference Range Interpretation Comments WHITE BLOOD CELL COUNT (BEAKER) 25.0 K/ L 3.5-10.5 H (test code = 775) RED BLOOD CELL COUNT (BEAKER) 3.18 M/ L 3.93-5.22 L (test code = 761) HEMOGLOBIN (BEAKER) (test code = 9.4 GM/DL 11.2-15.7 L 410) HEMATOCRIT (BEAKER) (test code = 28.6 % 34.1-44.9 L 411) MEAN CORPUSCULAR VOLUME (BEAKER) 89.9 fL 79.4-94.8 (test code = 753) MEAN CORPUSCULAR HEMOGLOBIN 29.6 pg 25.6-32.2 (BEAKER) (test code = 751) MEAN CORPUSCULAR HEMOGLOBIN CONC 32.9 GM/DL 32.2-35.5 (BEAKER) (test code = 752) RED CELL DISTRIBUTION WIDTH 13.5 % 11.7-14.4 (BEAKER) (test code = 412) PLATELET COUNT (BEAKER) (test 144 K/CU MM 150-450 L code = 756) MEAN PLATELET VOLUME (BEAKER) 12.0 fL 9.4-12.3 (test code = 754) NUCLEATED RED BLOOD CELLS 0 /100 WBC 0-0 (BEAKER) (test code = 413) POCT-GLUCOSE [id number] 20:26:50 Test Item Value Reference Range Interpretation Comments POC-GLUCOSE METER 92 mg/dL 70-110 : TESTED A T [facility] 6720 (BEAKER) (test code = [facility], 1538) [address]: Quantitative Associate/Techni shasha ID = [id number] for Amur e (contract), Yvo nne POCT-GLUCOSE [id number] 17:39:31 Test Item Value Reference Range Interpretation Comments POC-GLUCOSE METER 179 mg/dL 70-110 H : TESTED A T [facility] 6720 (BEAKER) (test code = [facility], 1538) 10[address]: Quantitative Associate/Techni shasha ID = [id number] for Co mbs, Nilda POCT-GLUCOSE [id number] 16:04:07 Test Item Value Reference Range Interpretation Comments POC-GLUCOSE METER 193 mg/dL 70-110 H : TESTED A T [facility] 6720 (BEAKER) (test code = [facility], 1538) [address]: Quantitative Associate/Techni shasha ID = [id number] for Co mbs, Nilda POCT-GLUCOSE [id number] 15:09:09 Test Item Value Reference Range Interpretation Comments POC-GLUCOSE METER 207 mg/dL 70-110 H : Pt. on I V insulin: (BEAKER) (test code = TESTED AT [facility] 6720 1538) [facility], [address]: Quantitative Associate/Techni shasha ID = [id number] for Co mbs, Nilda POCT-GLUCOSE [id number] 13:00:53 Test Item Value Reference Range Interpretation Comments POC-GLUCOSE METER 276 mg/dL 70-110 H : TESTED A T [facility] 6720 (BEAKER) (test code = [facility], 1538) 685[address]: Quantitative Associate/Techni shasha ID = [id number] for Co mbs, Nilda POCT-GLUCOSE [id number] 12:06:47 Test Item Value Reference Range Interpretation Comments POC-GLUCOSE METER 280 mg/dL 70-110 H : [facility] (BEAKER) (test code = [facility], 1538) [address]: Quantitative Associate/Techni shasha ID = [id number] for Co mbs, Nilda POCT-GLUCOSE [id number] 11:56:23 Test Item Value Reference Range Interpretation Comments POC-GLUCOSE METER 289 mg/dL 70-110 H : TESTED [facility] T [facility] 6720 (BEAKER) (test code = [facility], 1538) [address]: Quantitative Associate/Techni shasha ID = [id number] for Co mbs, Nilda [id number] 10:02:28 Test Item Value Reference Range Interpretation Comments PROCALCITONIN (BEAKER) (test code 0.64 ng/mL <0.05 H = 3036) SEPSIS RISK (ng/mL)Low: 0.05-0.50Intermediate: 0.51-2.00High: >=2.01LACTIC ACID, [id number] 07:52:34 Test Item Value Reference Range Interpretation Comments LACTATE BLOOD 2.3 mmol/L 0.5-2.2 H Specimen sligh tly ARTERIAL (2) (BEAKER) hemoly zed (test code = 2874) Quantitative Associate ID - PIDAMIÁN LBASIC METABOLIC [id number] 05:06:53 Test Item Value Reference Range Interpretation Comments SODIUM (BEAKER) (test 134 meq/L 136-145 L code = 381) POTASSIUM (BEAKER) 4.4 meq/L 3.5-5.1 (test code = 379) CHLORIDE (BEAKER) 100 meq/L 98-107 (test code = 382) CO2 (BEAKER) (test 24 meq/L 22-29 code = 355) BLOOD UREA NITROGEN 11 mg/dL 7-21 (BEAKER) (test code = 354) CREATININE (BEAKER) 0.64 mg/dL 0.57-1.25 (test code = 358) GLUCOSE RANDOM 277 mg/dL 70-105 H (BEAKER) (test code = 652) CALCIUM (BEAKER) 8.6 mg/dL 8.4-10.2 (test code = 697) EGFR (BEAKER) (test INSUFFIC IENT CLINICAL code = 1092) DATA TO CALCULA TE ESTIMATED GFR. Quantitative Associate ID - NÉSTOR LRAD, CHEST, 1 VIEW, NON [id number] 04:47:00while patient is intubated or has chest tubes.Reason for exam:->Status post CV SurgeryShould thisbe performed at the bedside?->Yes [facility] 1960 Sex: FFINAL REPORT CLINICAL INDICATION: Status post CV Surgery Comparison: 11/06/2021 The patient is rotated to the right. The cardiomediastinal contours are stable. The lung volumes have decreased slightly after extubation. Central pulmonary vascular prominence and bilateral parenchymal and pleural opacities are unchanged. There is no pneumothorax. A PA catheter has been removed through a right IJ sheath. Remaining support lines are stable. Signed: Kingsley Garcia MDReport Verified Date/Time: 11/07/2021 04:47:55 [id number] 04:10:47 Test Item Value Reference Range Interpretation Comments MAGNESIUM (BEAKER) (test code = 1.7 mg/dL 1.6-2.6 627) Quantitative Associate ID - PIAYA [id number] 04:10:47 Test Item Value Reference Range Interpretation Comments PHOSPHORUS (BEAKER) (test code = 3.4 mg/dL 2.3-4.7 604) Quantitative Associate ID - PIAYA LOXYGEN SATURATION, [id number] 03:36:39 Test Item Value Reference Range Interpretation Comments O2 SATURATION (MEASURED) (BEAKER) 73.9 % (test code = 1455) CALCIUM, [id number] 03:32:56 Test Item Value Reference Range Interpretation Comments CALCIUM IONIZED (BEAKER) (test 1.14 mmol/L 1.12-1.27 code = 698) PH, BLOOD (BEAKER) (test code = 7.41 1810) BLOOD GAS, [id number] 03:32:20 Test Item Value Reference Range Interpretation Comments PH ARTERIAL (BEAKER) (test code = 7.41 7.35-7.45 383) PCO2 ARTERIAL (BEAKER) (test code 43 mm Hg 35-45 = 384) PO2 ARTERIAL (BEAKER) (test code = 87 mm Hg 80-90 385) O2 SATURATION ARTERIAL (BEAKER) 96.7 % 96.0-97.0 (test code = 386) HCO3 ARTERIAL (BEAKER) (test code 26 mmol/L 21-29 = 388) BASE EXCESS ARTERIAL (BEAKER) 1.4 mmol/L -2.0-3.0 (test code = 387) PATIENT TEMPERATURE (BEAKER) (test 37.0 code = 1818) FIO2 (BEAKER) (test code = 1819) 21.0 CBC (HEMOGRAM ONLY)2021-11-07 03:31:59 Test Item Value Reference Range Interpretation Comments WHITE BLOOD CELL COUNT (BEAKER) 24.1 K/ L 3.5-10.5 H (test code = 775) RED BLOOD CELL COUNT (BEAKER) 3.33 M/ L 3.93-5.22 L (test code = 761) HEMOGLOBIN (BEAKER) (test code = 9.8 GM/DL 11.2-15.7 L 410) HEMATOCRIT (BEAKER) (test code = 29.7 % 34.1-44.9 L 411) MEAN CORPUSCULAR VOLUME (BEAKER) 89.2 fL 79.4-94.8 (test code = 753) MEAN CORPUSCULAR HEMOGLOBIN 29.4 pg 25.6-32.2 (BEAKER) (test code = 751) MEAN CORPUSCULAR HEMOGLOBIN CONC 33.0 GM/DL 32.2-35.5 (BEAKER) (test code = 752) RED CELL DISTRIBUTION WIDTH 13.5 % 11.7-14.4 (BEAKER) (test code = 412) PLATELET COUNT (BEAKER) (test 112 K/CU MM 150-450 L code = 756) MEAN PLATELET VOLUME (BEAKER) 12.0 fL 9.4-12.3 (test code = 754) NUCLEATED RED BLOOD CELLS 0 /100 WBC 0-0 (BEAKER) (test code = 413) POCT-GLUCOSE [id number] 01:39:23 Test Item Value Reference Range Interpretation Comments POC-GLUCOSE METER 248 mg/dL 70-110 H : TESTED A T [facility] 6720 (BEAKER) (test code = [facility], 1538) [address]: Quantitative Associate/Techni shasha ID = [id number] for OR NELAS, RICHIE POCT-GLUCOSE [id number] 21:15:32 Test Item Value Reference Range Interpretation Comments POC-GLUCOSE METER 204 mg/dL 70-110 H : TESTED A T [facility] 6720 (BEAKER) (test code = [facility], 1538) 649[address]: Quantitative Associate/Techni shasha ID = [id number] for OR NELAS, RICHIE POCT-GLUCOSE [id number] 15:41:26 Test Item Value Reference Range Interpretation Comments POC-GLUCOSE METER 212 mg/dL 70-110 H : TESTED A T [facility] 6720 (BEAKER) (test code [facility], = 1538) 101[address]: Quantitative Associate/Techni shasha ID = [id number] for Cast ano (contract), Martha castrejon POCT-GLUCOSE [id number] 13:13:24 Test Item Value Reference Range Interpretation Comments POC-GLUCOSE METER 162 mg/dL 70-110 H : TESTED A T [facility] 6720 (BEAKER) (test code [facility], = 1538) 680[address]: Quantitative Associate/Techni shasha ID = [id number] for Cast ano (contract), Martha castrejon [id number] 11:53:24 Test Item Value Reference Range Interpretation Comments POTASSIUM (BEAKER) (test code = 4.3 meq/L 3.5-5.1 379) Quantitative Associate ID - EARLENE [id number] 11:53:23 Test Item Value Reference Range Interpretation Comments MAGNESIUM (BEAKER) (test code = 1.9 mg/dL 1.6-2.6 627) Quantitative Associate ID - EARLENE [id number] 11:53:23 Test Item Value Reference Range Interpretation Comments PHOSPHORUS (BEAKER) (test code = 4.9 mg/dL 2.3-4.7 H 604) Quantitative Associate ID - EARLENE WCALCIUM, [id number] 11:28:13 Test Item Value Reference Range Interpretation Comments CALCIUM IONIZED (BEAKER) (test 1.13 mmol/L 1.12-1.27 code = 698) PH, BLOOD (BEAKER) (test code = 7.41 1810) POCT-GLUCOSE [id number] 10:34:33 Test Item Value Reference Range Interpretation Comments POC-GLUCOSE METER 167 mg/dL 70-110 H : TESTED A T [facility] 6720 (BEAKER) (test code [facility], = 1538) [address]37[address]: Quantitative Associate/Techni shasha ID = [id number] for Cast ano (contract), Martha castrejno POCT-GLUCOSE [id number] 08:52:17 Test Item Value Reference Range Interpretation Comments POC-GLUCOSE METER 166 mg/dL 70-110 H : TESTED A T [facility] 6720 (BEAKER) (test code [facility], = 1538) [address]: Quantitative Associate/Techni shasha ID = [id number] for Cast ano (contract), Martha castrejon RAD, CHEST, 1 VIEW, NON [id number] 08:15:00while patient is intubated or has chest tubes.Reason for exam:->Status post CV SurgeryShould thisbe performed at the bedside?->Yes [facility] 1960 Sex: FFINAL REPORT CLINICAL HISTORY: Status post CV Surgery TECHNIQUE: 1 view of the chest. COMPARISON: 11/05/2021 IMPRESSION: The supporting lines and tubes are similar appearing. Diffuse bilateral lung opacities are slightly increased. Trace pleural effusions are present. The cardiomediastinal silhouette is magnified by technique with sternotomy wires. Signed: [facility] VerifiedDate/Time: 11/06/2021 08:15:43 Reading Location: [facility] Radiology Reading Room Electronicallysigned by: MOISE STEPHEN M.D. on 11/06/2021 08:15 AMPOCT-GLUCOSE [id number] 08:02:06 Test Item Value Reference Range Interpretation Comments POC-GLUCOSE METER 143 mg/dL 70-110 H : [facility] ([employer]) (test code [facility], = 1538) [address]: Quantitative Associate/Techni shasha ID = [id number] for Shavon patino (contract)Martha POCT-GLUCOSE [id number] 06:58:24 Test Item Value Reference Range Interpretation Comments POC-GLUCOSE METER 134 mg/dL 70-110 H : TESTED A T [facility] 6720 ([employer]) (test code = [facility]AV[facility] Gallo [facility], 1538) 614[address]: Quantitative Associate/Techni shasha ID = [id number] for ZOË HALL POCT-GLUCOSE [id number] 06:57:05 Test Item Value Reference Range Interpretation Comments POC-GLUCOSE METER 153 mg/dL 70-110 H : TESTED A T [facility] 6720 (BEAKER) (test code = [facility] [place], 1538) [address]: Quantitative Associate/Techni shasha ID = [id number] for ZOË HALL GLUCOSE-STAT [id number] 05:47:16 Test Item Value Reference Range Interpretation Comments GLUCOSE RANDOM (BEAKER) (test code 152 mg/dL 70-110 H = 652) HGB/HCT (H&H) - STAT [id number] 05:47:16 Test Item Value Reference Range Interpretation Comments HEMOGLOBIN (BEAKER) (test code = 9.7 GM/DL 12.0-15.0 L 410) HEMATOCRIT (BEAKER) (test code = 29.0 % 36.0-45.0 L 411) BLOOD GAS, [id number] 05:47:15 Test Item Value Reference Range Interpretation Comments PH ARTERIAL (BEAKER) (test code = 7.39 7.35-7.45 383) PCO2 ARTERIAL (BEAKER) (test code 40 mm Hg 35-45 = 384) PO2 ARTERIAL (BEAKER) (test code 113 mm Hg 80-90 H = 385) O2 SATURATION ARTERIAL (BEAKER) 98.1 % 96.0-97.0 H (test code = 386) HCO3 ARTERIAL (BEAKER) (test code 24 mmol/L 21-29 = 388) BASE EXCESS ARTERIAL (BEAKER) -1.0 mmol/L -2.0-3.0 (test code = 387) PATIENT TEMPERATURE (BEAKER) 36.7 (test code = 1818) FIO2 (BEAKER) (test code = 1819) 40.0 SODIUM NA-STAT [id number] 05:47:15 Test Item Value Reference Range Interpretation Comments SODIUM (BEAKER) (test code = 381) 134 meq/L 136-145 L POTASSIUM-STAT [id number] 05:40:21 Test Item Value Reference Range Interpretation Comments POTASSIUM (BEAKER) (test code = 4.3 meq/L 3.6-5.5 379) POCT-GLUCOSE [id number] 05:01:18 Test Item Value Reference Range Interpretation Comments POC-GLUCOSE METER 161 mg/dL 70-110 H : TESTED A T [facility] 6720 (BEAKER) (test code = [place], 1538) [address]: Quantitative Associate/Techni shasha ID = [id number] for ZOË HALL BASIC METABOLIC [id number] 03:48:09 Test Item Value Reference Range Interpretation Comments SODIUM (BEAKER) (test 138 meq/L 136-145 code = 381) POTASSIUM (BEAKER) 4.6 meq/L 3.5-5.1 (test code = 379) CHLORIDE (BEAKER) 107 meq/L 98-107 (test code = 382) CO2 (BEAKER) (test 21 meq/L 22-29 L code = 355) BLOOD UREA NITROGEN 12 mg/dL 7-21 (BEAKER) (test code = 354) CREATININE (BEAKER) 0.62 mg/dL 0.57-1.25 (test code = 358) GLUCOSE RANDOM 174 mg/dL 70-105 H (BEAKER) (test code = 652) CALCIUM (BEAKER) 8.4 mg/dL 8.4-10.2 (test code = 697) EGFR (BEAKER) (test INSUFFIC IENT CLINICAL code = 1092) DATA TO CALCULA TE ESTIMATED GFR. Quantitative Associate ID - LARRY [id number] 02:52:02 Test Item Value Reference Range Interpretation Comments MAGNESIUM (BEAKER) (test code = 1.9 mg/dL 1.6-2.6 627) Quantitative Associate ID - LARRY [id number] 02:52:02 Test Item Value Reference Range Interpretation Comments PHOSPHORUS (BEAKER) (test code = 4.3 mg/dL 2.3-4.7 604) Quantitative Associate ID - LARRY [id number] 02:41:22 Test Item Value Reference Range Interpretation Comments PROTIME (BEAKER) (test 17.8 seconds 11.9-14.2 H code = 759) INR (BEAKER) (test 1.49 See_Comment [Automat ed code = 370) message] The sy stem which generated this result transmitted reference range : <=5.90. The reference range was not used to interpret this result as normal/abnormal . PARTIAL THROMBOPLASTIN 42.1 seconds 22.5-36.0 H TIME (BEAKER) (test code = 760) RECOMMENDED COUMADIN/WARFARIN INR THERAPY RANGESSTANDARD DOSE: 2.0 - 3.0 Includes: PROPHYLAXIS for venous thrombosis, systemic embolization; TREATMENT for venous thrombosis and/or pulmonary embolus.HIGH RISK: Target INR is 2.5-3.5 for patients with mechanical heart valves.[id number] 02:41:00 Test Item Value Reference Range Interpretation Comments FIBRINOGEN LEVEL (BEAKER) (test 246 mg/dl 225-434 code = 658) LACTIC ACID, [id number] 02:36:20 Test Item Value Reference Range Interpretation Comments LACTATE BLOOD ARTERIAL (2) 1.7 mmol/L 0.5-2.2 (BEAKER) (test code = 2874) Quantitative Associate WILL JUAREZ FLORABC (HEMOGRAM ONLY)2021-11-06 02:31:20 Test Item Value Reference Range Interpretation Comments WHITE BLOOD CELL COUNT (BEAKER) 11.5 K/ L 3.5-10.5 H (test code = 775) RED BLOOD CELL COUNT (BEAKER) 2.46 M/ L 3.93-5.22 L (test code = 761) HEMOGLOBIN (BEAKER) (test code = 7.2 GM/DL 11.2-15.7 L 410) HEMATOCRIT (BEAKER) (test code = 22.3 % 34.1-44.9 L 411) MEAN CORPUSCULAR VOLUME (BEAKER) 90.7 fL 79.4-94.8 (test code = 753) MEAN CORPUSCULAR HEMOGLOBIN 29.3 pg 25.6-32.2 (BEAKER) (test code = 751) MEAN CORPUSCULAR HEMOGLOBIN CONC 32.3 GM/DL 32.2-35.5 (BEAKER) (test code = 752) RED CELL DISTRIBUTION WIDTH 13.1 % 11.7-14.4 (BEAKER) (test code = 412) PLATELET COUNT (BEAKER) (test code 80 K/CU MM 150-450 L = 756) MEAN PLATELET VOLUME (BEAKER) 12.2 fL 9.4-12.3 (test code = 754) NUCLEATED RED BLOOD CELLS (BEAKER) 0 /100 WBC 0-0 (test code = 413) BLOOD GAS, [id number] 02:30:11 Test Item Value Reference Range Interpretation Comments PH ARTERIAL (BEAKER) (test code = 7.36 7.35-7.45 383) PCO2 ARTERIAL (BEAKER) (test code 46 mm Hg 35-45 H = 384) PO2 ARTERIAL (BEAKER) (test code = 157 mm Hg 80-90 H 385) O2 SATURATION ARTERIAL (BEAKER) 98.9 % 96.0-97.0 H (test code = 386) HCO3 ARTERIAL (BEAKER) (test code 26 mmol/L 21-29 = 388) BASE EXCESS ARTERIAL (BEAKER) 0.1 mmol/L -2.0-3.0 (test code = 387) PATIENT TEMPERATURE (BEAKER) (test 36.7 code = 1818) FIO2 (BEAKER) (test code = 1819) 40.0 OXYGEN SATURATION, [id number] 02:28:59 Test Item Value Reference Range Interpretation Comments O2 SATURATION (MEASURED) (BEAKER) 80.3 % (test code = 1455) CALCIUM, [id number] 02:13:17 Test Item Value Reference Range Interpretation Comments CALCIUM IONIZED (BEAKER) (test 1.16 mmol/L 1.12-1.27 code = 698) PH, BLOOD (BEAKER) (test code = 7.36 1810) POCT-GLUCOSE [id number] 00:10:08 Test Item Value Reference Range Interpretation Comments POC-GLUCOSE METER 203 mg/dL 70-110 H : TESTED A T [facility] 6720 (BEAKER) (test code = JAVAN Gallo [facility], 1538) [id number]: Quantitative Associate/Techni shasha ID = [id number] for ZOË HALL [id number] 21:26:53 Test Item Value Reference Range Interpretation Comments PHOSPHORUS (BEAKER) (test code = 3.3 mg/dL 2.3-4.7 604) Quantitative Associate ID - [id number] 21:26:52 Test Item Value Reference Range Interpretation Comments MAGNESIUM (BEAKER) (test code = 1.6 mg/dL 1.6-2.6 627) Quantitative Associate ID - BSLACTIC ACID, [id number] 21:15:29 Test Item Value Reference Range Interpretation Comments LACTATE BLOOD ARTERIAL (2) 1.1 mmol/L 0.5-2.2 (BEAKER) (test code = 2874) Quantitative Associate ID - BSBLOOD GAS, [id number] 21:03:30 Test Item Value Reference Range Interpretation Comments PH ARTERIAL (BEAKER) (test code = 7.37 7.35-7.45 383) PCO2 ARTERIAL (BEAKER) (test code 47 mm Hg 35-45 H = 384) PO2 ARTERIAL (BEAKER) (test code = 172 mm Hg 80-90 H 385) O2 SATURATION ARTERIAL (BEAKER) 99.1 % 96.0-97.0 H (test code = 386) HCO3 ARTERIAL (BEAKER) (test code 27 mmol/L 21-29 = 388) BASE EXCESS ARTERIAL (BEAKER) 1.2 mmol/L -2.0-3.0 (test code = 387) PATIENT TEMPERATURE (BEAKER) (test 36.8 code = 1818) FIO2 (BEAKER) (test code = 1819) 40.0 HGB/HCT (H&H) - STAT [id number] 21:03:30 Test Item Value Reference Range Interpretation Comments HEMOGLOBIN (BEAKER) (test code = 8.4 GM/DL 12.0-15.0 L 410) HEMATOCRIT (BEAKER) (test code = 25.0 % 36.0-45.0 L 411) POTASSIUM-STAT [id number] 21:02:27 Test Item Value Reference Range Interpretation Comments POTASSIUM (BEAKER) (test code = 3.6 meq/L 3.6-5.5 379) GLUCOSE-STAT [id number] 21:02:26 Test Item Value Reference Range Interpretation Comments GLUCOSE RANDOM (BEAKER) (test code = 91 mg/dL 70-110 652) SODIUM NA-STAT [id number] 21:02:26 Test Item Value Reference Range Interpretation Comments SODIUM (BEAKER) (test code = 381) 140 meq/L 136-145 CALCIUM, [id number] 21:02:04 Test Item Value Reference Range Interpretation Comments CALCIUM IONIZED (BEAKER) (test 1.19 mmol/L 1.12-1.27 code = 698) PH, BLOOD (BEAKER) (test code = 7.37 1810) POCT-GLUCOSE [id number] 20:52:39 Test Item Value Reference Range Interpretation Comments POC-GLUCOSE METER 88 mg/dL 70-110 : TESTED A T [facility] 6720 (BEAKER) (test code = JAVAN Gallo [facility], 1538) [address]: Quantitative Associate/Techni shasha ID = [id number] for Walk er -LOPEZ, RIN A POCT-GLUCOSE [id number] 19:12:59 Test Item Value Reference Range Interpretation Comments POC-GLUCOSE METER 100 mg/dL 70-110 : TESTED A T [facility] 6720 (BEAKER) (test code [facility], = 1538) [address]: Quantitative Associate/Techni shasha ID = [id number] for Cast ano (contract), Martha yeagerine POCT-GLUCOSE [id number] 18:11:46 Test Item Value Reference Range Interpretation Comments POC-GLUCOSE METER 103 mg/dL 70-110 : TESTED A T [facility] 6720 (BEAKER) (test code [facility], = 1538) [address]: Quantitative Associate/Techni shasha ID = [id number] for Cast ano (contract), Martha yeagerine POCT-GLUCOSE [id number] 17:29:54 Test Item Value Reference Range Interpretation Comments POC-GLUCOSE METER 124 mg/dL 70-110 H : TESTED A T [facility] 6720 (BEAKER) (test code [facility], = 1538) [address]: Quantitative Associate/Techni shasha ID = [id number] for Cast ano (contract), Martha yeagerlouann POCT-GLUCOSE [id number] 16:30:07 Test Item Value Reference Range Interpretation Comments POC-GLUCOSE METER 142 mg/dL 70-110 H : TESTED A T [facility] 6720 (BEAKER) (test code [facility], = 1538) [address]: Quantitative Associate/Techni shasha ID = [id number] for Cast ano (contract), Martha lucía GLUCOSE-STAT [id number] 16:25:10 Test Item Value Reference Range Interpretation Comments GLUCOSE RANDOM (BEAKER) (test code 160 mg/dL 70-110 H = 652) HGB/HCT (H&H) - STAT [id number] 16:25:10 Test Item Value Reference Range Interpretation Comments HEMOGLOBIN (BEAKER) (test code = 7.9 GM/DL 12.0-15.0 L 410) HEMATOCRIT (BEAKER) (test code = 23.0 % 36.0-45.0 L 411) BLOOD GAS, [id number] 16:25:09 Test Item Value Reference Range Interpretation Comments PH ARTERIAL (BEAKER) (test code = 7.53 7.35-7.45 H 383) PCO2 ARTERIAL (BEAKER) (test code 29 mm Hg 35-45 L = 384) PO2 ARTERIAL (BEAKER) (test code = 202 mm Hg 80-90 H 385) O2 SATURATION ARTERIAL (BEAKER) 99.5 % 96.0-97.0 H (test code = 386) HCO3 ARTERIAL (BEAKER) (test code 24 mmol/L 21-29 = 388) BASE EXCESS ARTERIAL (BEAKER) 1.5 mmol/L -2.0-3.0 (test code = 387) PATIENT TEMPERATURE (BEAKER) (test 35.8 code = 1818) FIO2 (BEAKER) (test code = 1819) 60.0 SODIUM NA-STAT [id number] 16:24:53 Test Item Value Reference Range Interpretation Comments SODIUM (BEAKER) (test code = 381) 136 meq/L 136-145 POTASSIUM-STAT [id number] 16:24:53 Test Item Value Reference Range Interpretation Comments POTASSIUM (BEAKER) (test code = 3.5 meq/L 3.6-5.5 L 379) RAD, CHEST, 1 VIEW, NON [id number] 15:33:00Reason for exam:->Status post CV Surgery post op day 0Should this be performed at the bedside?->Yes [facility] 1960 Sex: FFINAL REPORT CLINICAL HISTORY: Status post CV Surgery post op day 0 TECHNIQUE: 1 view of the chest. COMPARISON: 10/26/2021 IMPRESSION: The patient is status post median sternotomy with an endotracheal tube just below the clavicles, a right [place] catheter with its tip in the right pulmonary outflow tract, a nasogastric tube in the stomach, and bilateral and midline chest tubes. There is no pneumothorax. There are increased diffuse interstitial lung opacities. There is blunting of leftcostophrenic angle. Signed: Moise Stephen MDReport Verified Date/Time: 11/05/2021 15:33:37 Reading Location: [facility] Radiology Reading Room BASIC METABOLIC [id number] 15:25:11 Test Item Value Reference Range Interpretation Comments SODIUM (BEAKER) (test 139 meq/L 136-145 code = 381) POTASSIUM (BEAKER) 3.5 meq/L 3.5-5.1 (test code = 379) CHLORIDE (BEAKER) 106 meq/L 98-107 (test code = 382) CO2 (BEAKER) (test 21 meq/L 22-29 L code = 355) BLOOD UREA NITROGEN 11 mg/dL 7-21 (BEAKER) (test code = 354) CREATININE (BEAKER) 0.73 mg/dL 0.57-1.25 (test code = 358) GLUCOSE RANDOM 259 mg/dL 70-105 H (BEAKER) (test code = 652) CALCIUM (BEAKER) 9.3 mg/dL 8.4-10.2 (test code = 697) EGFR (BEAKER) (test INSUFFIC IENT CLINICAL code = 1092) DATA TO CALCULA TE ESTIMATED GFR. Quantitative Associate ID - [id number] 15:22:58 Test Item Value Reference Range Interpretation Comments MAGNESIUM (BEAKER) (test code = 1.9 mg/dL 1.6-2.6 627) Quantitative Associate ID - [id number] 15:22:58 Test Item Value Reference Range Interpretation Comments PHOSPHORUS (BEAKER) (test code = 3.1 mg/dL 2.3-4.7 604) Quantitative Associate ID - [id number] 15:19:17 Test Item Value Reference Range Interpretation Comments PHOSPHORUS (BEAKER) 3.7 mg/dL 2.3-4.7 Specimen slightly (test code = 604) hemolyzed Quantitative Associate ID - [id number] 15:19:16 Test Item Value Reference Range Interpretation Comments MAGNESIUM (BEAKER) 2.1 mg/dL 1.6-2.6 Specimen slightly (test code = 627) hemolyzed Quantitative Associate ID - [id number] 15:11:20 Test Item Value Reference Range Interpretation Comments PARTIAL THROMBOPLASTIN TIME 41.1 seconds 22.5-36.0 H (BEAKER) (test code = 760) [id number] 15:11:14 Test Item Value Reference Range Interpretation Comments FIBRINOGEN LEVEL (BEAKER) (test 208 mg/dl 225-434 L code = 658) PROTHROMBIN TIME/[id number] 15:10:16 Test Item Value Reference Range Interpretation Comments PROTIME (BEAKER) 19.2 seconds 11.9-14.2 H (test code = 759) INR (BEAKER) (test 1.64 See_Comment [Automat ed message] code = 370) The system [employer] generated this result transmitted ref erence range: <=5.90. The reference range was not used to int erpret this result as normal/abnormal . RECOMMENDED COUMADIN/WARFARIN INR THERAPY RANGESSTANDARD DOSE: 2.0 - 3.0 Includes: PROPHYLAXIS for venous thrombosis, systemic embolization; TREATMENT for venous thrombosis and/or pulmonary embolus.HIGH RISK: Target INR is 2.5-3.5 for patients with mechanical heart valves.LACTIC ACID, [id number] 15:08:55 Test Item Value Reference Range Interpretation Comments LACTATE BLOOD ARTERIAL (2) 2.4 mmol/L 0.5-2.2 H (BEAKER) (test code = 2874) Quantitative Associate ID - BSPOTASSIUM-STAT [id number] 15:05:29 Test Item Value Reference Range Interpretation Comments POTASSIUM (BEAKER) (test code = 3.3 meq/L 3.6-5.5 L 379) GLUCOSE-STAT [id number] 15:05:29 Test Item Value Reference Range Interpretation Comments GLUCOSE RANDOM (BEAKER) (test code 257 mg/dL 70-110 H = 652) HGB/HCT (H&H) - STAT [id number] 15:05:29 Test Item Value Reference Range Interpretation Comments HEMOGLOBIN (BEAKER) (test code = 8.5 GM/DL 12.0-15.0 L 410) HEMATOCRIT (BEAKER) (test code = 25.0 % 36.0-45.0 L 411) BLOOD GAS, [id number] 15:05:28 Test Item Value Reference Range Interpretation Comments PH ARTERIAL (BEAKER) (test code = 7.46 7.35-7.45 H 383) PCO2 ARTERIAL (BEAKER) (test code 36 mm Hg 35-45 = 384) PO2 ARTERIAL (BEAKER) (test code = 147 mm Hg 80-90 H 385) O2 SATURATION ARTERIAL (BEAKER) 99.1 % 96.0-97.0 H (test code = 386) HCO3 ARTERIAL (BEAKER) (test code 26 mmol/L 21-29 = 388) BASE EXCESS ARTERIAL (BEAKER) 1.2 mmol/L -2.0-3.0 (test code = 387) PATIENT TEMPERATURE (BEAKER) (test 35.6 code = 1818) FIO2 (BEAKER) (test code = 1819) 60.0 CBC W/PLT COUNT & AUTO [id number] 15:03:31 Test Item Value Reference Range Interpretation Comments WHITE BLOOD CELL COUNT (BEAKER) 13.7 K/ L 3.5-10.5 H (test code = 775) RED BLOOD CELL COUNT (BEAKER) 2.71 M/ L 3.93-5.22 L (test code = 761) HEMOGLOBIN (BEAKER) (test code = 8.1 GM/DL 11.2-15.7 L 410) HEMATOCRIT (BEAKER) (test code = 23.9 % 34.1-44.9 L 411) MEAN CORPUSCULAR VOLUME (BEAKER) 88.2 fL 79.4-94.8 (test code = 753) MEAN CORPUSCULAR HEMOGLOBIN 29.9 pg 25.6-32.2 (BEAKER) (test code = 751) MEAN CORPUSCULAR HEMOGLOBIN CONC 33.9 GM/DL 32.2-35.5 (BEAKER) (test code = 752) RED CELL DISTRIBUTION WIDTH 12.9 % 11.7-14.4 (BEAKER) (test code = 412) PLATELET COUNT (BEAKER) (test code 85 K/CU MM 150-450 L = 756) MEAN PLATELET VOLUME (BEAKER) 11.3 fL 9.4-12.3 (test code = 754) NUCLEATED RED BLOOD CELLS (BEAKER) 0 /100 WBC 0-0 (test code = 413) NEUTROPHILS RELATIVE PERCENT 86 % (BEAKER) (test code = 429) LYMPHOCYTES RELATIVE PERCENT 7 % (BEAKER) (test code = 430) MONOCYTES RELATIVE PERCENT 6 % (BEAKER) (test code = 431) EOSINOPHILS RELATIVE PERCENT 0 % (BEAKER) (test code = 432) BASOPHILS RELATIVE PERCENT 0 % (BEAKER) (test code = 437) NEUTROPHILS ABSOLUTE COUNT 11.83 K/ L 1.56-6.13 H (BEAKER) (test code = 670) LYMPHOCYTES ABSOLUTE COUNT 1.02 K/ L 1.18-3.74 L (BEAKER) (test code = 414) MONOCYTES ABSOLUTE COUNT (BEAKER) 0.75 K/ L 0.24-0.36 H (test code = 415) EOSINOPHILS ABSOLUTE COUNT 0.01 K/ L 0.04-0.36 L (BEAKER) (test code = 416) BASOPHILS ABSOLUTE COUNT (BEAKER) 0.03 K/ L 0.01-0.08 (test code = 417) IMMATURE GRANULOCYTES-RELATIVE 0 % 0-1 PERCENT (BEAKER) (test code = 2801) CALCIUM, [id number] 15:01:33 Test Item Value Reference Range Interpretation Comments CALCIUM IONIZED (BEAKER) (test 1.22 mmol/L 1.12-1.27 code = 698) PH, BLOOD (BEAKER) (test code = 7.44 1810) SODIUM NA-STAT [id number] 15:01:11 Test Item Value Reference Range Interpretation Comments SODIUM (BEAKER) (test code = 381) 137 meq/L 136-145 OXYGEN SATURATION, [id number] 15:00:32 Test Item Value Reference Range Interpretation Comments O2 SATURATION (MEASURED) (BEAKER) 73.8 % (test code = 1455) [id number] 14:38:39 Test Item Value Reference Range Interpretation Comments ACTIVATED CLOTTING TIME 121 sec : 74 -137 seconds, (BEAKER) (test code = Baseli ne: TESTED AT 441) [facility] [address] [place], [facility] 30: Quantitative Associate/Techni shasha ID = [id number] for Arielle an, [place] [id number] 14:38:38 Test Item Value Reference Range Interpretation Comments ACTIVATED CLOTTING TIME 422 sec : 74 -137 seconds, (BEAKER) (test code = Baseli ne: TESTED AT 441) [address], [facility] 30: Quantitative Associate/Techni shasha ID = [id number] for Arielle an, [place] [id number] 14:38:13 Test Item Value Reference Range Interpretation Comments ACTIVATED CLOTTING TIME 700 sec : 74 -137 seconds, (BEAKER) (test code = Baseli ne: TESTED AT 441) [address], [facility] 30: Quantitative Associate/Techni shasha ID = [id number] for Arielle an, [place] [id number] 14:38:12 Test Item Value Reference Range Interpretation Comments ACTIVATED CLOTTING TIME 491 sec : 74 -137 seconds, (BEAKER) (test code = Baseli ne: TESTED AT 441) [address], [facility] 30: Quantitative Associate/Techni shasha ID = [id number] for Arielle an, [place] [id number] 14:38:12 Test Item Value Reference Range Interpretation Comments ACTIVATED CLOTTING TIME 705 sec : 74 -137 seconds, (BEAKER) (test code = Baseli ne: TESTED AT 441) [address], [facility] 30: Quantitative Associate/Techni shasha ID = [id number] for Arielle an, [place] [id number] 14:38:11 Test Item Value Reference Range Interpretation Comments ACTIVATED CLOTTING TIME 422 sec : 74 -137 seconds, (BEAKER) (test code = Baseli ne: TESTED AT 441) [place] [id number] 30: Quantitative Associate/Techni shasha ID = [id number] for Arielle an, [place] BASIC METABOLIC [id number] 14:29:37 Test Item Value Reference Range Interpretation Comments SODIUM (BEAKER) (test 138 meq/L 136-145 code = 381) POTASSIUM (BEAKER) 4.4 meq/L 3.5-5.1 Specimen slightly (test code = 379) hemolyzed CHLORIDE (BEAKER) 103 meq/L 98-107 (test code = 382) CO2 (BEAKER) (test 24 meq/L 22-29 code = 355) BLOOD UREA NITROGEN 12 mg/dL 7-21 (BEAKER) (test code = 354) CREATININE (BEAKER) 0.82 mg/dL 0.57-1.25 Specimen slightly (test code = 358) hemolyzed GLUCOSE RANDOM 397 mg/dL 70-105 H (BEAKER) (test code = 652) CALCIUM (BEAKER) 10.7 mg/dL 8.4-10.2 H (test code = 697) EGFR (BEAKER) (test INSUFFIC IENT CLINICAL code = 1092) DATA TO CALCULA TE ESTIMATED GFR. Quantitative Associate ID - BSGLUCOSE-STAT [id number] 14:04:07 Test Item Value Reference Range Interpretation Comments GLUCOSE RANDOM (BEAKER) (test code 324 mg/dL 70-110 H = 652) HGB/HCT (H&H) - STAT [id number] 14:04:07 Test Item Value Reference Range Interpretation Comments HEMOGLOBIN (BEAKER) (test code = 9.1 GM/DL 12.0-15.0 L 410) HEMATOCRIT (BEAKER) (test code = 27.0 % 36.0-45.0 L 411) CALCIUM, [id number] 14:04:06 Test Item Value Reference Range Interpretation Comments CALCIUM IONIZED (BEAKER) (test 1.33 mmol/L 1.12-1.27 H code = 698) PH, BLOOD (BEAKER) (test code = 7.33 1810) BLOOD GAS, [id number] 14:04:06 Test Item Value Reference Range Interpretation Comments PH ARTERIAL (BEAKER) (test code = 7.34 7.35-7.45 L 383) PCO2 ARTERIAL (BEAKER) (test code 48 mm Hg 35-45 H = 384) PO2 ARTERIAL (BEAKER) (test code 189 mm Hg 80-90 H = 385) O2 SATURATION ARTERIAL (BEAKER) 99.2 % 96.0-97.0 H (test code = 386) HCO3 ARTERIAL (BEAKER) (test code 26 mmol/L 21-29 = 388) BASE EXCESS ARTERIAL (BEAKER) -0.8 mmol/L -2.0-3.0 (test code = 387) PATIENT TEMPERATURE (BEAKER) 36.0 (test code = 1818) FIO2 (BEAKER) (test code = 1819) 50.0 LACTIC ACID, [id number] 14:04:00 Test Item Value Reference Range Interpretation Comments LACTATE BLOOD 3.6 mmol/L 0.5-2.2 H Specimen sligh tly ARTERIAL (2) (BEAKER) hemoly zed (test code = 2874) Quantitative Associate ID - BSPOTASSIUM-STAT [id number] 14:02:56 Test Item Value Reference Range Interpretation Comments POTASSIUM (BEAKER) (test code = 3.5 meq/L 3.6-5.5 L 379) SODIUM NA-STAT [id number] 14:02:55 Test Item Value Reference Range Interpretation Comments SODIUM (BEAKER) (test code = 381) 136 meq/L 136-145 HGB/HCT (H&H) - STAT [id number] 13:42:21 Test Item Value Reference Range Interpretation Comments HEMOGLOBIN (BEAKER) (test code = 9.9 GM/DL 12.0-15.0 L 410) HEMATOCRIT (BEAKER) (test code = 29.0 % 36.0-45.0 L 411) SODIUM NA-STAT [id number] 13:42:20 Test Item Value Reference Range Interpretation Comments SODIUM (BEAKER) (test code = 381) 134 meq/L 136-145 L GLUCOSE-STAT [id number] 13:42:20 Test Item Value Reference Range Interpretation Comments GLUCOSE RANDOM (BEAKER) (test code 380 mg/dL 70-110 H = 652) CALCIUM, [id number] 13:42:19 Test Item Value Reference Range Interpretation Comments CALCIUM IONIZED (BEAKER) (test 1.39 mmol/L 1.12-1.27 H code = 698) PH, BLOOD (BEAKER) (test code = 7.35 1810) BLOOD GAS, [id number] 13:42:19 Test Item Value Reference Range Interpretation Comments PH ARTERIAL (BEAKER) (test code = 7.36 7.35-7.45 383) PCO2 ARTERIAL (BEAKER) (test code 46 mm Hg 35-45 H = 384) PO2 ARTERIAL (BEAKER) (test code = 150 mm Hg 80-90 H 385) O2 SATURATION ARTERIAL (BEAKER) 98.9 % 96.0-97.0 H (test code = 386) HCO3 ARTERIAL (BEAKER) (test code 26 mmol/L 21-29 = 388) BASE EXCESS ARTERIAL (BEAKER) 0.0 mmol/L -2.0-3.0 (test code = 387) PATIENT TEMPERATURE (BEAKER) (test 36.0 code = 1818) FIO2 (BEAKER) (test code = 1819) 50.0 POTASSIUM-STAT [id number] 13:41:29 Test Item Value Reference Range Interpretation Comments POTASSIUM (BEAKER) (test code = 4.0 meq/L 3.6-5.5 379) GLUCOSE-STAT [id number] 12:48:40 Test Item Value Reference Range Interpretation Comments GLUCOSE RANDOM (BEAKER) (test code 443 mg/dL 70-110 HH = 652) SODIUM NA-STAT [id number] 12:47:49 Test Item Value Reference Range Interpretation Comments SODIUM (BEAKER) (test code = 381) 134 meq/L 136-145 L HGB/HCT (H&H) - STAT [id number] 12:47:49 Test Item Value Reference Range Interpretation Comments HEMOGLOBIN (BEAKER) (test code = 9.1 GM/DL 12.0-15.0 L 410) HEMATOCRIT (BEAKER) (test code = 27.0 % 36.0-45.0 L 411) BLOOD GAS, [id number] 12:47:48 Test Item Value Reference Range Interpretation Comments PH ARTERIAL (BEAKER) (test code = 7.34 7.35-7.45 L 383) PCO2 ARTERIAL (BEAKER) (test code 53 mm Hg 35-45 H = 384) PO2 ARTERIAL (BEAKER) (test code = 426 mm Hg 80-90 H 385) O2 SATURATION ARTERIAL (BEAKER) 99.8 % 96.0-97.0 H (test code = 386) HCO3 ARTERIAL (BEAKER) (test code 28 mmol/L 21-29 = 388) BASE EXCESS ARTERIAL (BEAKER) 1.5 mmol/L -2.0-3.0 (test code = 387) PATIENT TEMPERATURE (BEAKER) (test 36.6 code = 1818) FIO2 (BEAKER) (test code = 1819) 100.0 POTASSIUM-STAT [id number] 12:45:52 Test Item Value Reference Range Interpretation Comments POTASSIUM (BEAKER) (test code = 5.1 meq/L 3.6-5.5 379) LACTIC ACID, [id number] 12:28:49 Test Item Value Reference Range Interpretation Comments LACTATE BLOOD ARTERIAL (2) 2.3 mmol/L 0.5-2.2 H (BEAKER) (test code = 2874) Quantitative Associate ID - BSGLUCOSE-STAT [id number] 12:28:21 Test Item Value Reference Range Interpretation Comments GLUCOSE RANDOM (BEAKER) (test code 407 mg/dL 70-110 HH = 652) HGB/HCT (H&H) - STAT [id number] 12:27:38 Test Item Value Reference Range Interpretation Comments HEMOGLOBIN (BEAKER) (test code = 8.2 GM/DL 12.0-15.0 L 410) HEMATOCRIT (BEAKER) (test code = 24.0 % 36.0-45.0 L 411) BLOOD GAS, [id number] 12:27:36 Test Item Value Reference Range Interpretation Comments PH ARTERIAL (BEAKER) (test code = 7.41 7.35-7.45 383) PCO2 ARTERIAL (BEAKER) (test code 51 mm Hg 35-45 H = 384) PO2 ARTERIAL (BEAKER) (test code = 310 mm Hg 80-90 H 385) O2 SATURATION ARTERIAL (BEAKER) 99.7 % 96.0-97.0 H (test code = 386) HCO3 ARTERIAL (BEAKER) (test code 32 mmol/L 21-29 H = 388) BASE EXCESS ARTERIAL (BEAKER) 6.1 mmol/L -2.0-3.0 H (test code = 387) PATIENT TEMPERATURE (BEAKER) (test 36.6 code = 1818) FIO2 (BEAKER) (test code = 1819) 80.0 SODIUM NA-STAT [id number] 12:27:36 Test Item Value Reference Range Interpretation Comments SODIUM (BEAKER) (test code = 381) 133 meq/L 136-145 L POTASSIUM-STAT [id number] 12:26:33 Test Item Value Reference Range Interpretation Comments POTASSIUM (BEAKER) (test code = 5.2 meq/L 3.6-5.5 379) GLUCOSE-STAT [id number] 12:07:48 Test Item Value Reference Range Interpretation Comments GLUCOSE RANDOM (BEAKER) (test code 410 mg/dL 70-110 HH = 652) SODIUM NA-STAT [id number] 12:07:04 Test Item Value Reference Range Interpretation Comments SODIUM (BEAKER) (test code = 381) 128 meq/L 136-145 L HGB/HCT (H&H) - STAT [id number] 12:07:04 Test Item Value Reference Range Interpretation Comments HEMOGLOBIN (BEAKER) (test code = 9.3 GM/DL 12.0-15.0 L 410) HEMATOCRIT (BEAKER) (test code = 27.0 % 36.0-45.0 L 411) BLOOD GAS, [id number] 12:07:03 Test Item Value Reference Range Interpretation Comments PH ARTERIAL (BEAKER) (test code = 7.37 7.35-7.45 383) PCO2 ARTERIAL (BEAKER) (test code 40 mm Hg 35-45 = 384) PO2 ARTERIAL (BEAKER) (test code 295 mm Hg 80-90 H = 385) O2 SATURATION ARTERIAL (BEAKER) 99.7 % 96.0-97.0 H (test code = 386) HCO3 ARTERIAL (BEAKER) (test code 23 mmol/L 21-29 = 388) BASE EXCESS ARTERIAL (BEAKER) -2.8 mmol/L -2.0-3.0 L (test code = 387) PATIENT TEMPERATURE (BEAKER) 35.4 (test code = 1818) FIO2 (BEAKER) (test code = 1819) 80.0 POTASSIUM-STAT [id number] 12:06:04 Test Item Value Reference Range Interpretation Comments POTASSIUM (BEAKER) (test code = 5.5 meq/L 3.6-5.5 379) HGB/HCT (H&H) - STAT [id number] 11:31:56 Test Item Value Reference Range Interpretation Comments HEMOGLOBIN (BEAKER) (test code = 9.3 GM/DL 12.0-15.0 L 410) HEMATOCRIT (BEAKER) (test code = 27.0 % 36.0-45.0 L 411) BLOOD GAS, [id number] 11:31:55 Test Item Value Reference Range Interpretation Comments PH ARTERIAL (BEAKER) (test code = 7.37 7.35-7.45 383) PCO2 ARTERIAL (BEAKER) (test code 38 mm Hg 35-45 = 384) PO2 ARTERIAL (BEAKER) (test code 372 mm Hg 80-90 H = 385) O2 SATURATION ARTERIAL (BEAKER) 99.8 % 96.0-97.0 H (test code = 386) HCO3 ARTERIAL (BEAKER) (test code 22 mmol/L 21-29 = 388) BASE EXCESS ARTERIAL (BEAKER) -3.6 mmol/L -2.0-3.0 L (test code = 387) PATIENT TEMPERATURE (BEAKER) 34.9 (test code = 1818) FIO2 (BEAKER) (test code = 1819) 80.0 SODIUM NA-STAT [id number] 11:31:55 Test Item Value Reference Range Interpretation Comments SODIUM (BEAKER) (test code = 381) 131 meq/L 136-145 L GLUCOSE-STAT [id number] 11:31:55 Test Item Value Reference Range Interpretation Comments GLUCOSE RANDOM (BEAKER) (test code 328 mg/dL 70-110 H = 652) POTASSIUM-STAT [id number] 11:31:02 Test Item Value Reference Range Interpretation Comments POTASSIUM (BEAKER) (test code = 5.0 meq/L 3.6-5.5 379) LACTIC ACID, [id number] 11:22:20 Test Item Value Reference Range Interpretation Comments LACTATE BLOOD ARTERIAL (2) 1.1 mmol/L 0.5-2.2 (BEAKER) (test code = 2874) Quantitative Associate ID - LARRY WHGB/HCT (H&H) - STAT [id number] 11:05:46 Test Item Value Reference Range Interpretation Comments HEMOGLOBIN (BEAKER) (test code = 11.8 GM/DL 12.0-15.0 L 410) HEMATOCRIT (BEAKER) (test code = 35.0 % 36.0-45.0 L 411) SODIUM NA-STAT [id number] 11:05:45 Test Item Value Reference Range Interpretation Comments SODIUM (BEAKER) (test code = 381) 133 meq/L 136-145 L GLUCOSE-STAT [id number] 11:05:45 Test Item Value Reference Range Interpretation Comments GLUCOSE RANDOM (BEAKER) (test code 267 mg/dL 70-110 H = 652) CALCIUM, [id number] 11:05:44 Test Item Value Reference Range Interpretation Comments CALCIUM IONIZED (BEAKER) (test 1.04 mmol/L 1.12-1.27 L code = 698) PH, BLOOD (BEAKER) (test code = 7.39 1810) BLOOD GAS, [id number] 11:05:44 Test Item Value Reference Range Interpretation Comments PH ARTERIAL (BEAKER) (test code = 7.42 7.35-7.45 383) PCO2 ARTERIAL (BEAKER) (test code 37 mm Hg 35-45 = 384) PO2 ARTERIAL (BEAKER) (test code 244 mm Hg 80-90 H = 385) O2 SATURATION ARTERIAL (BEAKER) 99.6 % 96.0-97.0 H (test code = 386) HCO3 ARTERIAL (BEAKER) (test code 24 mmol/L 21-29 = 388) BASE EXCESS ARTERIAL (BEAKER) -1.0 mmol/L -2.0-3.0 (test code = 387) PATIENT TEMPERATURE (BEAKER) 35.0 (test code = 1818) FIO2 (BEAKER) (test code = 1819) 100.0 POTASSIUM-STAT [id number] 11:02:55 Test Item Value Reference Range Interpretation Comments POTASSIUM (BEAKER) (test code = 4.1 meq/L 3.6-5.5 379) GLUCOSE-STAT [id number] 09:32:41 Test Item Value Reference Range Interpretation Comments GLUCOSE RANDOM (BEAKER) (test code 200 mg/dL 70-110 H = 652) BLOOD GAS, [id number] 09:32:40 Test Item Value Reference Range Interpretation Comments PH ARTERIAL (BEAKER) (test code = 7.47 7.35-7.45 H 383) PCO2 ARTERIAL (BEAKER) (test code 34 mm Hg 35-45 L = 384) PO2 ARTERIAL (BEAKER) (test code = 339 mm Hg 80-90 H 385) O2 SATURATION ARTERIAL (BEAKER) 99.8 % 96.0-97.0 H (test code = 386) HCO3 ARTERIAL (BEAKER) (test code 24 mmol/L 21-29 = 388) BASE EXCESS ARTERIAL (BEAKER) 0.4 mmol/L -2.0-3.0 (test code = 387) PATIENT TEMPERATURE (BEAKER) (test 36.4 code = 1818) FIO2 (BEAKER) (test code = 1819) 60.0 SODIUM NA-STAT [id number] 09:32:40 Test Item Value Reference Range Interpretation Comments SODIUM (BEAKER) (test code = 381) 130 meq/L 136-145 L CALCIUM, [id number] 09:32:39 Test Item Value Reference Range Interpretation Comments CALCIUM IONIZED (BEAKER) (test 1.10 mmol/L 1.12-1.27 L code = 698) PH, BLOOD (BEAKER) (test code = 7.46 1810) POTASSIUM-STAT [id number] 09:31:56 Test Item Value Reference Range Interpretation Comments POTASSIUM (BEAKER) (test code = 4.2 meq/L 3.6-5.5 379) HGB/HCT (H&H) - STAT [id number] 09:31:56 Test Item Value Reference Range Interpretation Comments HEMOGLOBIN (BEAKER) (test code = 13.4 GM/DL 12.0-15.0 410) HEMATOCRIT (BEAKER) (test code = 39.0 % 36.0-45.0 411) BASIC METABOLIC [id number] 05:45:58 Test Item Value Reference Range Interpretation Comments SODIUM (BEAKER) (test 137 meq/L 136-145 code = 381) POTASSIUM (BEAKER) 3.9 meq/L 3.5-5.1 (test code = 379) CHLORIDE (BEAKER) 100 meq/L 98-107 (test code = 382) CO2 (BEAKER) (test 26 meq/L 22-29 code = 355) BLOOD UREA NITROGEN 11 mg/dL 7-21 (BEAKER) (test code = 354) CREATININE (BEAKER) 0.79 mg/dL 0.57-1.25 (test code = 358) GLUCOSE RANDOM 216 mg/dL 70-105 H (BEAKER) (test code = 652) CALCIUM (BEAKER) 9.5 mg/dL 8.4-10.2 (test code = 697) EGFR (BEAKER) (test INSUFFIC IENT CLINICAL code = 1092) DATA TO CALCULA TE ESTIMATED GFR. Quantitative Associate ID - LARRY [id number] 05:21:57 Test Item Value Reference Range Interpretation Comments PARTIAL THROMBOPLASTIN TIME 66.5 seconds 22.5-36.0 H (BEAKER) (test code = 760) CBC (HEMOGRAM ONLY)2021-11-05 04:53:04 Test Item Value Reference Range Interpretation Comments WHITE BLOOD CELL COUNT (BEAKER) 12.3 K/ L 3.5-10.5 H (test code = 775) RED BLOOD CELL COUNT (BEAKER) 4.37 M/ L 3.93-5.22 (test code = 761) HEMOGLOBIN (BEAKER) (test code = 12.8 GM/DL 11.2-15.7 410) HEMATOCRIT (BEAKER) (test code = 38.2 % 34.1-44.9 411) MEAN CORPUSCULAR VOLUME (BEAKER) 87.4 fL 79.4-94.8 (test code = 753) MEAN CORPUSCULAR HEMOGLOBIN 29.3 pg 25.6-32.2 (BEAKER) (test code = 751) MEAN CORPUSCULAR HEMOGLOBIN CONC 33.5 GM/DL 32.2-35.5 (BEAKER) (test code = 752) RED CELL DISTRIBUTION WIDTH 13.0 % 11.7-14.4 (BEAKER) (test code = 412) PLATELET COUNT (BEAKER) (test 217 K/CU MM 150-450 code = 756) MEAN PLATELET VOLUME (BEAKER) 12.3 fL 9.4-12.3 (test code = 754) NUCLEATED RED BLOOD CELLS 0 /100 WBC 0-0 (BEAKER) (test code = 413) [id number] 22:19:21 Test Item Value Reference Range Interpretation Comments PARTIAL THROMBOPLASTIN TIME 71.1 seconds 22.5-36.0 H (BEAKER) (test code = 760) POCT-GLUCOSE [id number] 21:23:06 Test Item Value Reference Range Interpretation Comments POC-GLUCOSE METER 238 mg/dL 70-110 H : TESTED A T [facility] 6720 (BEAKER) (test code = [place], 1538) [address]: Quantitative Associate/Techni shasha ID = [id number] for GENE ALDRIDGE POCT-GLUCOSE [id number] 17:35:43 Test Item Value Reference Range Interpretation Comments POC-GLUCOSE METER 247 mg/dL 70-110 H : TESTED A T [facility] 6720 [facility] ([facility] = [facility] Gallo [facility], 1538) [address]: Quantitative Associate/Techni shasha ID = [id number] for AN DM SALAZAR [id number] 15:06:52 Test Item Value Reference Range Interpretation Comments PARTIAL THROMBOPLASTIN TIME 74.1 seconds 22.5-36.0 H (BEAKER) (test code = 760) POCT-GLUCOSE [id number] 11:53:23 Test Item Value Reference Range Interpretation Comments POC-GLUCOSE METER 266 mg/dL 70-110 H : Notified RN/MD: (ELMEREMILY) (test code = TESTED AT [place] [id number] 1538) [facility], [address]: Quantitative Associate/Techni shasha ID = [id number] for AN DM SALAZAR POCT-GLUCOSE [id number] 08:48:11 Test Item Value Reference Range Interpretation Comments POC-GLUCOSE METER 229 mg/dL 70-110 H : Notified RN/MD: (KRYSTAL) (test code = TESTED AT [place] [id number] 1538) [facility], [address]: Quantitative Associate/Techni shasha ID = [id number] for AN DM SALAZAR BASIC METABOLIC [id number] 07:31:27 Test Item Value Reference Range Interpretation Comments SODIUM (BEAKER) (test 133 meq/L 136-145 L code = 381) POTASSIUM (BEAKER) 4.4 meq/L 3.5-5.1 (test code = 379) CHLORIDE (BEAKER) 100 meq/L 98-107 (test code = 382) CO2 (BEAKER) (test 27 meq/L 22-29 code = 355) BLOOD UREA NITROGEN 12 mg/dL 7-21 (BEAKER) (test code = 354) CREATININE (BEAKER) 0.75 mg/dL 0.57-1.25 (test code = 358) GLUCOSE RANDOM 231 mg/dL 70-105 H (BEAKER) (test code = 652) CALCIUM (BEAKER) 9.1 mg/dL 8.4-10.2 (test code = 697) EGFR (BEAKER) (test INSUFFIC IENT CLINICAL code = 1092) DATA TO CALCULA TE ESTIMATED GFR. Quantitative Associate ID - NÉSTOR [id number] 06:03:33 Test Item Value Reference Range Interpretation Comments PARTIAL THROMBOPLASTIN TIME 90.8 seconds 22.5-36.0 H (BEAKER) (test code = 760) CBC (HEMOGRAM ONLY)2021-11-04 05:56:29 Test Item Value Reference Range Interpretation Comments WHITE BLOOD CELL COUNT (BEAKER) 12.2 K/ L 3.5-10.5 H (test code = 775) RED BLOOD CELL COUNT (BEAKER) 4.52 M/ L 3.93-5.22 (test code = 761) HEMOGLOBIN (BEAKER) (test code = 13.2 GM/DL 11.2-15.7 410) HEMATOCRIT (BEAKER) (test code = 39.2 % 34.1-44.9 411) MEAN CORPUSCULAR VOLUME (BEAKER) 86.7 fL 79.4-94.8 (test code = 753) MEAN CORPUSCULAR HEMOGLOBIN 29.2 pg 25.6-32.2 (BEAKER) (test code = 751) MEAN CORPUSCULAR HEMOGLOBIN CONC 33.7 GM/DL 32.2-35.5 (BEAKER) (test code = 752) RED CELL DISTRIBUTION WIDTH 12.9 % 11.7-14.4 (BEAKER) (test code = 412) PLATELET COUNT (BEAKER) (test 219 K/CU MM 150-450 code = 756) MEAN PLATELET VOLUME (BEAKER) 11.6 fL 9.4-12.3 (test code = 754) NUCLEATED RED BLOOD CELLS 0 /100 WBC 0-0 (BEAKER) (test code = 413) POCT-GLUCOSE [id number] 20:51:48 Test Item Value Reference Range Interpretation Comments POC-GLUCOSE METER 303 mg/dL 70-110 H : TESTED A T [facility] 6720 (BEAKER) (test code = [place], 1538) [address]: Quantitative Associate/Techni shasha ID = [id number] for JODI MCDONALD [id number] 20:38:10 Test Item Value Reference Range Interpretation Comments PARTIAL THROMBOPLASTIN TIME 71.6 seconds 22.5-36.0 H (BEAKER) (test code = 760) POCT-GLUCOSE [id number] 17:41:18 Test Item Value Reference Range Interpretation Comments POC-GLUCOSE METER 327 mg/dL 70-110 H : [facility] (KRYSTAL) (test code = [place], 1538) [address]: Quantitative Associate/Techni shasha ID = [id number] for Re yes, Rand [id number] 13:44:21 Test Item Value Reference Range Interpretation Comments PARTIAL THROMBOPLASTIN TIME 87.8 seconds 22.5-36.0 H (KRYSTAL) (test code = 760) POCT-GLUCOSE [id number] 11:57:15 Test Item Value Reference Range Interpretation Comments POC-GLUCOSE METER 388 mg/dL 70-110 H : TESTED [facility] T [facility] 6720 (KRYSTAL) (test code = [place], 1538) [address]: Quantitative Associate/Techni shasha ID = [id number] for Re yes, Rand CT, CHEST, WITHOUT [id number] 10:42:00Unlisted Reason for Exam - Click Yes and Enter Reason Below->No [facility] 1960 Sex: FFINAL REPORT TECHNIQUE: CT scan of the chest WITHOUT intravenous contrast. Dose modulation, iterative reconstruction, and/or weight-based adjustment of the mA/kV was utilized to reduce theradiation dose to as low as reasonably achievable. INDICATION: Coronary artery disease, prior revascu larization. COMPARISON: None. FINDINGS: ABSENCE OF INTRAVENOUS CONTRAST DECREASES SENSITIVITY FOR DETECTION OF FOCAL LESIONS AND VASCULAR PATHOLOGY. LINES/TUBES: None. LUNGS AND AIRWAYS: Mild bilateral, mainly paraseptal emphysema. A triangular opacity immediately adjacent to the right major fissure on coronal image 60 measures 0.4 cm and is most likely atelectasis. A right upper lobe calcified granuloma measures 0.2 cm on axial image 26. A few additional scattered calcified granuloma is punctate. Aleft lower lobe point nodule on axial image 52 measures 0.3 cm. PLEURA: The pleural spaces are clear. HEART AND MEDIASTINUM: A left thyroid nodule measures 1.6 cm. No significant mediastinal, hilar, oraxillary lymphadenopathy. Calcification of the aortic valve. Moderate calcification of the left main, left anterior descending, and right coronary arteries. Moderate calcification of the descending thoracic aorta and aortic arch. There is moderate calcification of the aortic annulus and mild calcification of the ascending thoracic aorta. The ascending thoracic aorta is 1.9 cm deep to the sternum, andthe right ventricular outflow tract is 3 cm deep to the sternum. SOFT TISSUES AND BONES: Kyphosis ofthe thoracic spine. Moderate degenerative changes of the thoracic spine. There is a prominent posterior disc osteophyte complex at C7-T1. UPPER ABDOMEN: Prior cholecystectomy. Diverticulosis of the partially visualized colon. There is questionable nodularity of the liver. IMPRESSION: 1.There is moderate calcification of the left main, left anterior descending, and right coronary arteries. Mild calcifi cation of the ascending thoracic aorta. 2.Mild bilateral, mainly paraseptal pulmonary emphysema. 3.The liver is questionably nodular, concerning for cirrhosis. 4.A left lower lobe pulmonary nodule measures 0.3 cm. Since the patient is at increased risk for lung cancer, an optional follow-up chest CT can be obtained in 12 months. These follow-up recommendations are per the Fleischner Society Guidelines from 2017. 5.A left thyroid nodule measures 1.6 cm. Further evaluation with a thyroid ultrasound isrecommended on a nonemergent basis. Signed: Dinesh Wood Verified Date/Time: 11/03/2021 10:42:22 Reading Location: [facility] C0Y CT Body Reading Room Electronically signed by: Laura GAMBOA 11/03/2021 10:42 AMPOCT-GLUCOSE [id number] 08:00:38 Test Item Value Reference Range Interpretation Comments POC-GLUCOSE METER 301 mg/dL 70-110 H : TESTED A T [facility] 6720 (BEEMILY) (test code = [place], 1538) [address]: Quantitative Associate/Techni shasha ID = [id number] for Re yes, Rand [id number] 05:58:53 Test Item Value Reference Range Interpretation Comments PARTIAL THROMBOPLASTIN TIME 61.5 seconds 22.5-36.0 H (BEAKER) (test code = 760) CBC (HEMOGRAM ONLY)2021-11-03 05:57:32 Test Item Value Reference Range Interpretation Comments WHITE BLOOD CELL COUNT (BEAKER) 12.3 K/ L 3.5-10.5 H (test code = 775) RED BLOOD CELL COUNT (BEAKER) 4.56 M/ L 3.93-5.22 (test code = 761) HEMOGLOBIN (BEAKER) (test code = 13.3 GM/DL 11.2-15.7 410) HEMATOCRIT (BEAKER) (test code = 39.7 % 34.1-44.9 411) MEAN CORPUSCULAR VOLUME (BEAKER) 87.1 fL 79.4-94.8 (test code = 753) MEAN CORPUSCULAR HEMOGLOBIN 29.2 pg 25.6-32.2 (BEAKER) (test code = 751) MEAN CORPUSCULAR HEMOGLOBIN CONC 33.5 GM/DL 32.2-35.5 (BEAKER) (test code = 752) RED CELL DISTRIBUTION WIDTH 12.8 % 11.7-14.4 (BEAKER) (test code = 412) PLATELET COUNT (BEAKER) (test 210 K/CU MM 150-450 code = 756) MEAN PLATELET VOLUME (BEAKER) 12.2 fL 9.4-12.3 (test code = 754) NUCLEATED RED BLOOD CELLS 0 /100 WBC 0-0 (BEAKER) (test code = 413) SARS-COV2/RT-PCR ([facility])2021-11-03 03:17:10 Test Item Value Reference Range Interpretation Comments SARS-COV2/RT-PCR (test Negative Not Detected, Negative, code = 4832772) See external report for linked test SARS-COV-[address] [facility] (test code = 4908965) Negative result for this test determines that SARS-CoV-2 RNA was not present in the specimen above the Limit of Detection (LOD). However, Negative results do not preclude SARS-CoV-2 infection and should not be used as the sole basis for treatment or patient management decisions. Negative results must be combined with clinical observations, patient history, and epidemiological information. A false negative result may occur if a specimen is improperly collected, transported or handled. A false negative result should be considered if patient's recent exposures or clinical presentation indicate that COVID-19 (SARS-CoV-2) is likely and diagnostic tests for other causes of illness are negative. Re-testing should be considered in cases of suspected false negatives.The limit of detection for this assay is 800 copies/mL.This SARS CoV-2 test is a real-time RT-PCR test intended for the qualitative detection of nucleic acid from SARS-CoV-2 in a nasopharyngeal swab specimen collected from individuals suspected of COVID-19 by their healthcare provider.This test has not been Food and Drug Administration (FDA) cleared or approved. This is a modified version of an approved Emergency Use Authorization (EUA) and is in the process of review by the FDA. Once authorized by the FDA, the issued EUA will be effective until the declaration that circumstances exist justifying the authorization of the emergency use ofin vitro diagnostic tests for detection and/or diagnosis of COVID-19 is terminated under Section 564(b)(2) of the Act or the EUA is revoked under Section 564(g) of the Act.Fact Sheet for Healthcare Prov iders:https://www.[employer]/sites/default/files/product/documents/Fact_Sheet_HC _Jzkzvnneg_Pgxr_KOYU-PpM-4.pdfFact Sheet for Healthcare Patients:https://www.[employer]/sites/default/files/product/docume nts/Lvle_Dhnbm_Nwpnpavm_Idpd_VGHT-SpC-6.pdfPerforming Laboratory:[facility] Hernandez[place], [place] [id number] 22:04:09 Test Item Value Reference Range Interpretation Comments PARTIAL THROMBOPLASTIN TIME 59.3 seconds 22.5-36.0 H (KRYSTAL) (test code = 760) POCT-GLUCOSE [id number] 21:54:55 Test Item Value Reference Range Interpretation Comments POC-GLUCOSE METER 290 mg/dL 70-110 H : TESTED A T [facility] 6720 (KRYSTAL) (test code = JAVAN Gallo [facility], 1538) [address]: Quantitative Associate/Techni shasha ID = [id number] for Thais Garcia POCT-GLUCOSE [id number] 18:07:35 Test Item Value Reference Range Interpretation Comments POC-GLUCOSE METER 334 mg/dL 70-110 H : TESTED A T [facility] 6720 (BEAKER) (test code = [facility], 1538) [address]: Quantitative Associate/Techni shasha ID = [id number] for Re yes, Rand [id number] 14:25:45 Test Item Value Reference Range Interpretation Comments PARTIAL THROMBOPLASTIN TIME 44.5 seconds 22.5-36.0 H (BEAKER) (test code = 760) POCT-GLUCOSE [id number] 10:57:11 Test Item Value Reference Range Interpretation Comments POC-GLUCOSE METER 286 mg/dL 70-110 H : TESTED A T [facility] 6720 (BEAKER) (test code = [facility], 1538) [address]: Quantitative Associate/Techni shasha ID = [id number] for Re yes, Rand POCT-GLUCOSE [id number] 08:02:40 Test Item Value Reference Range Interpretation Comments POC-GLUCOSE METER 214 mg/dL 70-110 H : TESTED A T [facility] 6720 (BEAKER) (test code = [facility], 1538) [address]: Quantitative Associate/Techni shasha ID = [id number] for Re yes, Rand [id number] 05:51:38 Test Item Value Reference Range Interpretation Comments PARTIAL THROMBOPLASTIN TIME 38.3 seconds 22.5-36.0 H (BEAKER) (test code = 760) CBC (HEMOGRAM ONLY)2021-11-02 05:49:02 Test Item Value Reference Range Interpretation Comments WHITE BLOOD CELL COUNT (BEAKER) 13.1 K/ L 3.5-10.5 H (test code = 775) RED BLOOD CELL COUNT (BEAKER) 4.62 M/ L 3.93-5.22 (test code = 761) HEMOGLOBIN (BEAKER) (test code = 13.4 GM/DL 11.2-15.7 410) HEMATOCRIT (BEAKER) (test code = 40.4 % 34.1-44.9 411) MEAN CORPUSCULAR VOLUME (BEAKER) 87.4 fL 79.4-94.8 (test code = 753) MEAN CORPUSCULAR HEMOGLOBIN 29.0 pg 25.6-32.2 (BEAKER) (test code = 751) MEAN CORPUSCULAR HEMOGLOBIN CONC 33.2 GM/DL 32.2-35.5 (BEAKER) (test code = 752) RED CELL DISTRIBUTION WIDTH 12.8 % 11.7-14.4 (BEAKER) (test code = 412) PLATELET COUNT (BEAKER) (test 205 K/CU MM 150-450 code = 756) MEAN PLATELET VOLUME (BEAKER) 12.0 fL 9.4-12.3 (test code = 754) NUCLEATED RED BLOOD CELLS 0 /100 WBC 0-0 (BEAKER) (test code = 413) POCT-GLUCOSE [id number] 21:32:11 Test Item Value Reference Range Interpretation Comments POC-GLUCOSE METER 268 mg/dL 70-110 H : TESTED A T [facility] 6720 (BEAKER) (test code = [place], 1538) [address]: Quantitative Associate/Techni shasha ID = [id number] for UG AUBRIE TERRAZAS URINALYSIS W/ REFLEX URINE [id number] 21:29:18 Test Item Value Reference Range Interpretation Comments COLOR (BEAKER) (test code = 470) Yellow CLARITY (BEAKER) (test code = 469) Clear SPECIFIC GRAVITY UA (BEAKER) (test 1.022 1.001-1.035 code = 468) PH UA (BEAKER) (test code = 467) 6.5 5.0-8.0 PROTEIN UA (BEAKER) (test code = Negative Negative 464) GLUCOSE UA (BEAKER) (test code = 1000 mg/dL Negative A 365) KETONES UA (BEAKER) (test code = Negative Negative 371) BILIRUBIN UA (BEAKER) (test code = Negative Negative 462) BLOOD UA (BEAKER) (test code = Negative Negative 461) NITRITE UA (BEAKER) (test code = Negative Negative 465) LEUKOCYTE ESTERASE UA (BEAKER) Negative Negative (test code = 466) UROBILINOGEN UA (BEAKER) (test 2.0 mg/dL 0.2-1.0 H code = 463) RBC UA (BEAKER) (test code = 519) 1 /HPF WBC UA (BEAKER) (test code = 520) 1 /HPF BACTERIA (BEAKER) (test code = None Seen 517) SQUAMOUS EPITHELIAL (BEAKER) (test 1 /HPF code = 516) CRYSTALS, URINE (BEAKER) (test None Seen code = 1521) YEAST (BEAKER) (test code = 1585) Occasional SOURCE(BEAKER) (test code = 2795) Quantitative Associate ID - [auto]Quantitative Associate ID - [auto]Quantitative Associate ID - techPOCT-GLUCOSE METER 2021-11-01 18:00:32 Test Item Value Reference Range Interpretation Comments POC-GLUCOSE METER 290 mg/dL 70-110 H : TESTED A T [facility] 6720 (BEAKER) (test code = [facility], 1538) [address]: Quantitative Associate/Techni shasha ID = [id number] for [place] TONG [id number] 17:10:09 Test Item Value Reference Range Interpretation Comments PARTIAL THROMBOPLASTIN TIME 36.2 seconds 22.5-36.0 H (BEAKER) (test code = 760) POCT-GLUCOSE [id number] 13:12:17 Test Item Value Reference Range Interpretation Comments POC-GLUCOSE METER 257 mg/dL 70-110 H : TESTED A T [facility] 6720 (BEAKER) (test code = [facility], 1538) 61[address]: Quantitative Associate/Techni shasha ID = [id number] for [place] TONG POCT-GLUCOSE [id number] 05:44:15 Test Item Value Reference Range Interpretation Comments POC-GLUCOSE METER 212 mg/dL 70-110 H : TESTED A T [facility] 6720 (BEAKER) (test code = [facility], 1538) 99[address]: Quantitative Associate/Techni shasha ID = [id number] for Ev, Jodi POCT-GLUCOSE [id number] 20:52:38 Test Item Value Reference Range Interpretation Comments POC-GLUCOSE METER 275 mg/dL 70-110 H : TESTED A T [facility] 6720 (BEAKER) (test code = [facility], 1538) [address]: Quantitative Associate/Techni shasha ID = [id number] for Caitlin Fuller POCT-GLUCOSE [id number] 17:43:05 Test Item Value Reference Range Interpretation Comments POC-GLUCOSE METER 217 mg/dL 70-110 H : TESTED A T [facility] 6720 (BEAKER) (test code = [facility], 1538) [address]: Quantitative Associate/Techni shasha ID = [id number] for Re yes, Rand POCT-GLUCOSE [id number] 11:26:52 Test Item Value Reference Range Interpretation Comments POC-GLUCOSE METER 218 mg/dL 70-110 H : TESTED A T [facility] 6720 (BEAKER) (test code = [facility], 1538) [address]: Quantitative Associate/Techni shasha ID = [id number] for Re yes, Rand BASIC METABOLIC [id number] 07:58:27 Test Item Value Reference Range Interpretation Comments SODIUM (BEAKER) (test 133 meq/L 136-145 L code = 381) POTASSIUM (BEAKER) 4.3 meq/L 3.5-5.1 (test code = 379) CHLORIDE (BEAKER) 96 meq/L 98-107 L (test code = 382) CO2 (BEAKER) (test 26 meq/L 22-29 code = 355) BLOOD UREA NITROGEN 13 mg/dL 7-21 (BEAKER) (test code = 354) CREATININE (BEAKER) 0.78 mg/dL 0.57-1.25 (test code = 358) GLUCOSE RANDOM 282 mg/dL 70-105 H (BEAKER) (test code = 652) CALCIUM (BEAKER) 9.0 mg/dL 8.4-10.2 (test code = 697) EGFR (BEAKER) (test INSUFFIC IENT CLINICAL code = 1092) DATA TO CALCULA TE ESTIMATED GFR. Quantitative Associate ID - NÉSTOR [id number] 07:49:41 Test Item Value Reference Range Interpretation Comments MAGNESIUM (BEAKER) (test code = 1.7 mg/dL 1.6-2.6 627) Quantitative Associate ID - NÉSTOR LPOCT-GLUCOSE [id number] 07:30:03 Test Item Value Reference Range Interpretation Comments POC-GLUCOSE METER 272 mg/dL 70-110 H : TESTED A T [facility] 6720 (BEAKER) (test code = [facility], 1538) 25564: Quantitative Associate/Techni shasha ID = [id number] for Ev, Jodi CBC (HEMOGRAM ONLY)2021-10-31 07:09:56 Test Item Value Reference Range Interpretation Comments WHITE BLOOD CELL COUNT (BEAKER) 12.4 K/ L 3.5-10.5 H (test code = 775) RED BLOOD CELL COUNT (BEAKER) 4.55 M/ L 3.93-5.22 (test code = 761) HEMOGLOBIN (BEAKER) (test code = 13.3 GM/DL 11.2-15.7 410) HEMATOCRIT (BEAKER) (test code = 39.7 % 34.1-44.9 411) MEAN CORPUSCULAR VOLUME (BEAKER) 87.3 fL 79.4-94.8 (test code = 753) MEAN CORPUSCULAR HEMOGLOBIN 29.2 pg 25.6-32.2 (BEAKER) (test code = 751) MEAN CORPUSCULAR HEMOGLOBIN CONC 33.5 GM/DL 32.2-35.5 (BEAKER) (test code = 752) RED CELL DISTRIBUTION WIDTH 12.9 % 11.7-14.4 (BEAKER) (test code = 412) PLATELET COUNT (BEAKER) (test 202 K/CU MM 150-450 code = 756) MEAN PLATELET VOLUME (BEAKER) 12.2 fL 9.4-12.3 (test code = 754) NUCLEATED RED BLOOD CELLS 0 /100 WBC 0-0 (BEAKER) (test code = 413) POCT-GLUCOSE [id number] 22:37:22 Test Item Value Reference Range Interpretation Comments POC-GLUCOSE METER 236 mg/dL 70-110 H : TESTED A T [facility] 6720 (BEAKER) (test code = JAVAN Gallo [facility], 153) 22314: Quantitative Associate/Techni shasha ID = [id number] for Jodi Carreno POCT-GLUCOSE [id number] 18:04:45 Test Item Value Reference Range Interpretation Comments POC-GLUCOSE METER 298 mg/dL 70-110 H : TESTED A T [facility] 6720 (BEAKER) (test code = JAVAN Gallo [facility], 1538) 24448: Quantitative Associate/Techni shasha ID = [id number] for Alistair YiselCésarJennifer POCT-GLUCOSE [id number] 11:38:00 Test Item Value Reference Range Interpretation Comments POC-GLUCOSE METER 184 mg/dL 70-110 H : TESTED A T [facility] 6720 (BEAKER) (test code = JAVAN Gallo [place], 1538) 017[address]: Quantitative Associate/Techni shasha ID = [id number] for Jennifer Liao POCT-GLUCOSE [id number] 07:12:57 Test Item Value Reference Range Interpretation Comments POC-GLUCOSE METER 151 mg/dL 70-110 H : TESTED A T [facility] 6720 (BEAKER) (test code = [facility] Cleo [facility], 1538) 90674: Quantitative Associate/Techni shasha ID = [id number] for Jodi Carreno BASIC METABOLIC [id number] 05:30:04 Test Item Value Reference Range Interpretation Comments SODIUM (BEAKER) (test 134 meq/L 136-145 L code = 381) POTASSIUM (BEAKER) 4.3 meq/L 3.5-5.1 (test code = 379) CHLORIDE (BEAKER) 99 meq/L 98-107 (test code = 382) CO2 (BEAKER) (test 25 meq/L 22-29 code = 355) BLOOD UREA NITROGEN 8 mg/dL 7-21 (BEAKER) (test code = 354) CREATININE (BEAKER) 0.74 mg/dL 0.57-1.25 (test code = 358) GLUCOSE RANDOM 192 mg/dL 70-105 H (BEAKER) (test code = 652) CALCIUM (BEAKER) 9.3 mg/dL 8.4-10.2 (test code = 697) EGFR (BEAKER) (test INSUFFIC IENT CLINICAL code = 1092) DATA TO CALCULA TE ESTIMATED GFR. Quantitative Associate ID - [id number] 05:29:05 Test Item Value Reference Range Interpretation Comments MAGNESIUM (BEAKER) (test code = 1.8 mg/dL 1.6-2.6 627) Quantitative Associate ID - BSCBC (HEMOGRAM ONLY)2021-10-30 05:08:20 Test Item Value Reference Range Interpretation Comments WHITE BLOOD CELL COUNT (BEAKER) 11.8 K/ L 3.5-10.5 H (test code = 775) RED BLOOD CELL COUNT (BEAKER) 4.90 M/ L 3.93-5.22 (test code = 761) HEMOGLOBIN (BEAKER) (test code = 14.2 GM/DL 11.2-15.7 410) HEMATOCRIT (BEAKER) (test code = 43.0 % 34.1-44.9 411) MEAN CORPUSCULAR VOLUME (BEAKER) 87.8 fL 79.4-94.8 (test code = 753) MEAN CORPUSCULAR HEMOGLOBIN 29.0 pg 25.6-32.2 (BEAKER) (test code = 751) MEAN CORPUSCULAR HEMOGLOBIN CONC 33.0 GM/DL 32.2-35.5 (BEAKER) (test code = 752) RED CELL DISTRIBUTION WIDTH 13.1 % 11.7-14.4 (BEAKER) (test code = 412) PLATELET COUNT (BEAKER) (test 214 K/CU MM 150-450 code = 756) MEAN PLATELET VOLUME (BEAKER) 12.3 fL 9.4-12.3 (test code = 754) NUCLEATED RED BLOOD CELLS 0 /100 WBC 0-0 (BEAKER) (test code = 413) POCT-GLUCOSE [id number] 21:51:20 Test Item Value Reference Range Interpretation Comments POC-GLUCOSE METER 153 mg/dL 70-110 H : TESTED A T [facility] 6720 (BEAKER) (test code = [facility], 1538) 36553: Quantitative Associate/Techni shasha ID = [id number] for Jodi Carreno POCT-GLUCOSE [id number] 17:18:50 Test Item Value Reference Range Interpretation Comments POC-GLUCOSE METER 227 mg/dL 70-110 H : TESTED A T [facility] 6720 (BEAKER) (test code = [facility], 1538) 31859: Quantitative Associate/Techni shasha ID = [id number] for REYNA LUCIO FL, ESOPH, SWALLOW FUNCTION, WITH CINE OR [id number] 15:07:00Reason for exam:->[facility]phagia [facility] 1960 Sex: FFINAL REPORT Modified barium swallow exam with speech pathology service CLINICAL HISTORY: dysphagia IMPRESSION: Please see the speech pathology service report for details. Barium contrastof multiple consistencies is given to the patient to swallow. Fluoroscopic observation is performed during swallowing. Fluoro time: 3.9 minutes Number of images: 1 cine clip Signed: Laura Santosepmanuel Verified Date/Time: 10/29/2021 15:07:42 Reading Location: [facility] C013X Ortho Consult Reading Room POCT-GLUCOSE [id number] 06:12:12 Test Item Value Reference Range Interpretation Comments POC-GLUCOSE METER 216 mg/dL 70-110 H : [facility] (BEAKER) (test code = JAVAN [place], 1538) 80[address]: Quantitative Associate/Techni shasha ID = [id number] for Caitlin Fuller BASIC METABOLIC [id number] 05:09:32 Test Item Value Reference Range Interpretation Comments SODIUM (BEAKER) (test 132 meq/L 136-145 L code = 381) POTASSIUM (BEAKER) 3.9 meq/L 3.5-5.1 (test code = 379) CHLORIDE (BEAKER) 98 meq/L 98-107 (test code = 382) CO2 (BEAKER) (test 23 meq/L 22-29 code = 355) BLOOD UREA NITROGEN 9 mg/dL 7-21 (BEAKER) (test code = 354) CREATININE (BEAKER) 0.71 mg/dL 0.57-1.25 (test code = 358) GLUCOSE RANDOM 249 mg/dL 70-105 H (BEAKER) (test code = 652) CALCIUM (BEAKER) 8.8 mg/dL 8.4-10.2 (test code = 697) EGFR (BEAKER) (test INSUFFIC IENT CLINICAL code = 1092) DATA TO CALCULA TE ESTIMATED GFR. Quantitative Associate ID - [id number] 05:03:45 Test Item Value Reference Range Interpretation Comments MAGNESIUM (BEAKER) (test code = 1.7 mg/dL 1.6-2.6 627) Quantitative Associate ID - DBPROTHROMBIN TIME/[id number] 04:42:57 Test Item Value Reference Range Interpretation Comments PROTIME (BEAKER) 14.0 seconds 11.9-14.2 (test code = 759) INR (BEAKER) (test 1.10 See_Comment [Automat ed message] code = 370) The system Appboy generated this result transmitted ref erence range: <=5.90. The reference range was not used to int erpret this result as normal/abnormal . RECOMMENDED COUMADIN/WARFARIN INR THERAPY RANGESSTANDARD DOSE: 2.0 - 3.0 Includes: PROPHYLAXIS for venous thrombosis, systemic embolization; TREATMENT for venous thrombosis and/or pulmonary embolus.HIGH RISK: Target INR is 2.5-3.5 for patients with mechanical heart valves.CBC (HEMOGRAM ONLY)2021-10-29 04:29:31 Test Item Value Reference Range Interpretation Comments WHITE BLOOD CELL COUNT (BEAKER) 10.9 K/ L 3.5-10.5 H (test code = 775) RED BLOOD CELL COUNT (BEAKER) 4.62 M/ L 3.93-5.22 (test code = 761) HEMOGLOBIN (BEAKER) (test code = 13.3 GM/DL 11.2-15.7 410) HEMATOCRIT (BEAKER) (test code = 40.2 % 34.1-44.9 411) MEAN CORPUSCULAR VOLUME (BEAKER) 87.0 fL 79.4-94.8 (test code = 753) MEAN CORPUSCULAR HEMOGLOBIN 28.8 pg 25.6-32.2 (BEAKER) (test code = 751) MEAN CORPUSCULAR HEMOGLOBIN CONC 33.1 GM/DL 32.2-35.5 (BEAKER) (test code = 752) RED CELL DISTRIBUTION WIDTH 12.9 % 11.7-14.4 (BEAKER) (test code = 412) PLATELET COUNT (BEAKER) (test 182 K/CU MM 150-450 code = 756) MEAN PLATELET VOLUME (BEAKER) 11.5 fL 9.4-12.3 (test code = 754) NUCLEATED RED BLOOD CELLS 0 /100 WBC 0-0 (BEAKER) (test code = 413) POCT-GLUCOSE [id number] 21:41:38 Test Item Value Reference Range Interpretation Comments POC-GLUCOSE METER 228 mg/dL 70-110 H : TESTED A T [facility] 6720 (BEAKER) (test code = [facility], 1538) 58308: Quantitative Associate/Techni shasha ID = [id number] for SOFIA FALCON POCT-GLUCOSE [id number] 18:12:36 Test Item Value Reference Range Interpretation Comments POC-GLUCOSE METER 242 mg/dL 70-110 H : TESTED A T [facility] 6720 (BEAKER) (test code = [facility], 1538) 86991: Quantitative Associate/Techni shasha ID = [id number] for Amanda Guerrero [id number] 14:46:22 Test Item Value Reference Range Interpretation Comments HOMOCYSTEINE (BEAKER) (test code 10.2 umol/L 5.1-15.4 = 642) Quantitative Associate ID - BSVITAMIN [id number] 13:17:17 Test Item Value Reference Range Interpretation Comments VITAMIN B12 (BEAKER) (test code = 381 pg/mL [id number] 774) Quantitative Associate ID - BRANDY [id number] 12:44:52 Test Item Value Reference Range Interpretation Comments RPR SCREEN (AKER) (test code = Nonreactive Nonreactive 420) POCT-GLUCOSE [id number] 11:56:11 Test Item Value Reference Range Interpretation Comments POC-GLUCOSE METER 201 mg/dL 70-110 H : TESTED A T [facility] 6720 (BEAKER) (test code [facility], = 1538) 52913: Quantitative Associate/Techni shasha ID = [id number] for SicMagLaureen HIGH SENSITIVITY TROPONIN [id number] 07:13:55 Test Item Value Reference Range Interpretation Comments HIGH SENSITIVITY 329 pg/ml See_Comment H [Automated message] TROPONIN I (test code The sy stem which = [id number]) generated this result transmitted ref erence range: <=17. Th e reference range was not used to int erpret this result as normal/abnormal . Quantitative Associate ID - BRANDY Schneidere LEGAL SERVICES PROFESSIONAL STAT High Sensitivity Troponin-I results should be used in conjunction with other diagnostic information such as ECG, clinical observations and information, and patient symptoms to aid in the diagnosis of MN.POCT-GLUCOSE [id number] 06:22:45 Test Item Value Reference Range Interpretation Comments POC-GLUCOSE METER 157 mg/dL 70-110 H : TESTED A T [facility] 6720 (BEAKER) (test code = [facility], 1538) 70127: Quantitative Associate/Techni shasha ID = [id number] for Caitlin Fuller BASIC METABOLIC [id number] 05:07:32 Test Item Value Reference Range Interpretation Comments SODIUM (BEAKER) (test 137 meq/L 136-145 code = 381) POTASSIUM (BEAKER) 4.1 meq/L 3.5-5.1 (test code = 379) CHLORIDE (BEAKER) 102 meq/L 98-107 (test code = 382) CO2 (BEAKER) (test 27 meq/L 22-29 code = 355) BLOOD UREA NITROGEN 9 mg/dL 7-21 (BEAKER) (test code = 354) CREATININE (BEAKER) 0.72 mg/dL 0.57-1.25 (test code = 358) GLUCOSE RANDOM 142 mg/dL 70-105 H (BEAKER) (test code = 652) CALCIUM (BEAKER) 9.0 mg/dL 8.4-10.2 (test code = 697) EGFR (BEAKER) (test INSUFFIC IENT CLINICAL code = 1092) DATA TO CALCULA TE ESTIMATED GFR. Quantitative Associate ID - BRANDY [id number] 05:05:33 Test Item Value Reference Range Interpretation Comments MAGNESIUM (BEAKER) (test code = 1.7 mg/dL 1.6-2.6 627) Quantitative Associate ID - BRANDY MPOCT-GLUCOSE [id number] 04:21:30 Test Item Value Reference Range Interpretation Comments POC-GLUCOSE METER 145 mg/dL 70-110 H : TESTED A T [facility] 6720 (BEAKER) (test code = [facility], 1538) 20065: Quantitative Associate/Techni shasha ID = [id number] for Caitlin Fuller PROTHROMBIN TIME/[id number] 04:08:21 Test Item Value Reference Range Interpretation Comments PROTIME (BEAKER) 13.9 seconds 11.9-14.2 (test code = 759) INR (BEAKER) (test 1.09 See_Comment [Automat ed message] code = 370) The system Appboy generated this result transmitted ref erence range: <=5.90. The reference range was not used to int erpret this result as normal/abnormal . RECOMMENDED COUMADIN/WARFARIN INR THERAPY RANGESSTANDARD DOSE: 2.0 - 3.0 Includes: PROPHYLAXIS for venous thrombosis, systemic embolization; TREATMENT for venous thrombosis and/or pulmonary embolus.HIGH RISK: Target INR is 2.5-3.5 for patients with mechanical heart valves.CBC (HEMOGRAM ONLY)2021-10-28 03:57:38 Test Item Value Reference Range Interpretation Comments WHITE BLOOD CELL COUNT (BEAKER) 10.8 K/ L 3.5-10.5 H (test code = 775) RED BLOOD CELL COUNT (BEAKER) 4.72 M/ L 3.93-5.22 (test code = 761) HEMOGLOBIN (BEAKER) (test code = 13.6 GM/DL 11.2-15.7 410) HEMATOCRIT (BEAKER) (test code = 40.4 % 34.1-44.9 411) MEAN CORPUSCULAR VOLUME (BEAKER) 85.6 fL 79.4-94.8 (test code = 753) MEAN CORPUSCULAR HEMOGLOBIN 28.8 pg 25.6-32.2 (BEAKER) (test code = 751) MEAN CORPUSCULAR HEMOGLOBIN CONC 33.7 GM/DL 32.2-35.5 (BEAKER) (test code = 752) RED CELL DISTRIBUTION WIDTH 12.9 % 11.7-14.4 (BEAKER) (test code = 412) PLATELET COUNT (BEAKER) (test 176 K/CU MM 150-450 code = 756) MEAN PLATELET VOLUME (BEAKER) 11.6 fL 9.4-12.3 (test code = 754) NUCLEATED RED BLOOD CELLS 0 /100 WBC 0-0 (BEAKER) (test code = 413) HIGH SENSITIVITY TROPONIN [id number] 01:03:45 Test Item Value Reference Range Interpretation Comments HIGH SENSITIVITY 363 pg/ml See_Comment H [Automated message] TROPONIN I (test code [facility] which = [id number]) generated this result transmitted ref erence range: <=17. Th e reference range was not used to int erpret this result as normal/abnormal . Quantitative Associate ID - DBThe LEGAL SERVICES PROFESSIONAL STAT High Sensitivity Troponin-I results should be used in conjunctionwith other diagnostic information such as ECG, clinical observations and information, and patient symptoms to aid in the diagnosis of MN.POCT-GLUCOSE [id number] 21:57:06 Test Item Value Reference Range Interpretation Comments POC-GLUCOSE METER 254 mg/dL 70-110 H : TESTED A T [facility] 6720 (KRYSTAL) (test code = JAVAN Gallo [place], 1538) 50[address]: Quantitative Associate/Techni shasha ID = [id number] for Ra garciaCaitlin HIGH SENSITIVITY TROPONIN [id number] 19:21:19 Test Item Value Reference Range Interpretation Comments HIGH SENSITIVITY 353 pg/ml See_Comment H [Automated message] TROPONIN I (test code The sy stem which = [id number]) generated this result transmitted ref erence range: <=17. Th e reference range was not used to int erpret this result as normal/abnormal . Quantitative Associate ID - DBThe LEGAL SERVICES PROFESSIONAL STAT High Sensitivity Troponin-I results should be used in conjunctionwith other diagnostic information such as ECG, clinical observations and information, and patient symptoms to aid in the diagnosis of MN.POCT-GLUCOSE [id number] 16:54:36 Test Item Value Reference Range Interpretation Comments POC-GLUCOSE METER 191 mg/dL 70-110 H : [facility] (KRYSTAL) (test code = JAVAN Gallo [facility], 1538) 93295: Quantitative Associate/Techni shasha ID = [id number] for NW LINH, LYNDA CT, BRAIN, WITHOUT [id number] 14:10:00Unlisted Reason for Exam - Click Yes and Enter Reason Below->No [facility] : 1960 Sex: FFINAL REPORT CT, BRAIN, WITHOUT CONTRAST CLINICAL INDICATION: Stroke, follow up COMPARISON: None TECHNIQUE: Noncontrast axial CT imaging of the brain and skull. DOSE REDUCTION: Dose modulation, iterative reconstruction, and/or weight-based adjustment of the mA/kV was utilized to reduce the radiation dose to as low as reasonably achievable. FINDINGS:No intracranial hemorrhage, midline shift or mass effect. Midline structures are normally developed. Scattered foci of hypoattenuation are present throughout the periventricular and subcortical white matter, and, although nonspecific by imaging, statistically represent mild chronic microvascular ischemic changes in this age group. No hydrocephalus. Orbits are within normal limits. Prior bilateral lens surgery. Atherosclerotic calcificationof the intracranial internal carotid arteries. No obstructive paranasal sinus disease. IMPRESSION: No acute intracranial findings If there is persistent clinical concern for intracranial pathology, MR examination is recommended for further characterization. Signed: Ela Marshall MDReport Verified Date/Time: 10/27/2021 14:10:33 . [facility] [id number] 13:56:00Unlisted Reason for Exam - Click Yes and Enter Reason Below- >YesUnlisted Reason for Exam->acute CVA. evaluate for carotidd steonsis. US at OSH with left ICA 60 % narrowing [facility] 1960 Sex: FAddendum BeginsREPORT STATUS:A Spoke with neurology. Patient is presenting with left hemiparesis. 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 Discussed right MCA findings with neurology. Signed: Ela Marshall MDReport Verified Date/Time: 10/27/2021 13:56:[address], CTANGIO BRAIN, CT, CAROTID, ANGIOBRAIN CT WITHOUT CONTRAST INDICATION: Unlisted Reason for Examacute CVA.evaluate for carotidd steonsis. US at OSH with left ICA 60 % narrowing COMPARISON: CT head of the same date TECHNIQUE:Rapid acquisition spiral images were obtained between the aortic arch and the cranial vertex during intravenous contrast infusion to reconstruct axial images and angiographic 3D maximum intensity projections (MIP). 3-D volumetric reformatted images were created at a dedicated workstation. Precontrast images of the brain were also obtained. Stenosis evaluation reported in compliance with NASCET criteria. DOSE REDUCTION: Dose modulation, iterative reconstruction, and/or weight-based adjustment of the mA/kV was utilized to reduce the radiation dose to as low as reasonably achievable. FINDINGS: CTA BRAIN:Internal carotid arteries: Moderate stenosis of the distal horizontal left intracranial internal carotid artery. Otherwise, petrous, cavernous and supraclinoid portions patent. Middle cerebral arteries: The M1 segments opacify normally. There is lack of robust opacification of the distal right M2 anterior division with occlusion not excluded. Anterior cerebral arteries: Bilateral CAR A1-A2 branches demonstrate normal contrast enhancement.Basilar system: Basilar circulation is diminutive at baseline. The intracranial left V4 segment is likely occluded with short segment nonopacification. Flow at the vessel terminus to the basilar confluence is likely retrograde. The basilar artery is nonopacified for several slices (axial image 119-131), concerning for focal occlusion, the chronicity of which is uncertain.Posterior cerebral arteries: The majority of the FINANCIAL SERVICE REP circulation is derived from the anterior circulation. Normal contrast opacification of the bilateral FIN[employer]CIAL SERVICE REP P1-P2 branches.Venous opacification: Major dural sinuses unremarkable for bolus timing.Additional findings: None. CTANECK:Common carotid arteries: There is normal contrast opacification of the bilateral common carotid arteries.Cervical internal carotid arteries: 70% stenosis of the left proximal ICA by NASCET criteria. No significant stenosis of the contralateral right internal carotid artery. Normal contrast opacification of the bilateral cervical internal carotid arteries without significant stenosis by NASCET cri teria.Vertebral arteries: Normal contrast opacification of the bilateral cervical vertebral arteries.Arch anatomy: Conventional. Nonvascular findings:No acute findings within the neck soft tissues. 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 IMPRESSION: 1.Basilar circulation is diminutive at baseline.2.The basilar artery is nonopacified for several slices (axial image 119-131), concerning for focal occlusion, the chronicity of which is uncertain.3.Left intracranial V4 vertebral arterial segment is likely occluded with short segment nonopacification. Flow at the vessel terminus to the basilar confluence is likely retrograde. 4.Lack of robust opacification of the distal right M2 anterior division with occlusion not excluded (likely to distal for catheter intervention).5.60-70% stenosis of the left ICA by NASCET criteria. Signed: Ela Marshall Verified Date/Time: 10/27/2021 13:34:45 CT, CAROTID, [id number] 13:56:00Unlisted Reason for Exam - Click Yes and Enter Reason Below->YesUnlisted Reason for Exam->acute CVA. evaluate for carotidd steonsis. US at OSH with left ICA 60 % narrowing [facility] 1960 Sex: FAddendum BeginsREPORT STATUS:A Spoke with neurology. Patient is presenting with left hemiparesis. 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 Discussed right MCA findings with neurology. Signed: Ela Marshall Verified Date/Time: 10/27/2021 13:56:[address], CTANGIO BRAIN, CT, CAROTID, ANGIOBRAIN CT WITHOUT CONTRAST INDICATION: Unlisted Reason for Examacute CVA.evaluate for carotidd steonsis. US at OSH with left ICA 60 % narrowing COMPARISON: CT head of the same date TECHNIQUE:Rapid acquisition spiral images were obtained between the aortic arch and the cranial vertex during intravenous contrast infusion to reconstruct axial images and angiographic 3D maximum intensity projections (MIP). 3-D volumetric reformatted images were created at a dedicated workstation. Precontrast images of the brain were also obtained. Stenosis evaluation reported in compliance with NASCET criteria. DOSE REDUCTION: Dose modulation, iterative reconstruction, and/or weight-based adjustment of the mA/kV was utilized to reduce the radiation dose to as low as reasonably achievable. FINDINGS: CTA BRAIN:Internal carotid arteries: Moderate stenosis of the distal horizontal left intracranial internal carotid artery. Otherwise, petrous, cavernous and supraclinoid portions patent. Middle cerebral arteries: The M1 segments opacify normally. There is lack of robust opacification of the distal right M2 anterior division with occlusion not excluded. Anterior cerebral arteries: Bilateral CAR A1-A2 branches demonstrate normal contrast enhancement.Basilar system: Basilar circulation is diminutive at baseline. The intracranial left V4 segment is likely occluded with short segment nonopacification. Flow at the vessel terminus to the basilar confluence is likely retrograde. The basilar artery is nonopacified for several slices (axial image 119-131), concerning for focal occlusion, the chronicity of which is uncertain.Posterior cerebral arteries: The majority of the FIN[employer] SERVICE REP circulation is derived from the anterior circulation. Normal contrast opacification of the bilateral FINANCIAL SERVICE REP P1-P2 branches.Venous opacification: Major dural sinuses unremarkable for bolus timing.Additional findings: None. CTANECK:Common carotid arteries: There is normal contrast opacification of the bilateral common carotid arteries.Cervical internal carotid arteries: 70% stenosis of the left proximal ICA by NASCET criteria. No significant stenosis of the contralateral right internal carotid artery. Normal contrast opacification of the bilateral cervical internal carotid arteries without significant stenosis by NASCET cri teria.Vertebral arteries: Normal contrast opacification of the bilateral cervical vertebral arteries.Arch anatomy: Conventional. Nonvascular findings:No acute findings within the neck soft tissues. 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 IMPRESSION: 1.Basilar circulation is diminutive at baseline.2.The basilar artery is nonopacified for several slices (axial image 119-131), concerning for focal occlusion, the chronicity of which is uncertain.3.Left intracranial V4 vertebral arterial segment is likely occluded with short segment nonopacification. Flow at the vessel terminus to the basilar confluence is likely retrograde. 4.Lack of robust opacification of the distal right M2 anterior division with occlusion not excluded (likely to distal for catheter intervention).5.60-70% stenosis of the left ICA by NASCET criteria. Signed: Ela Marshall Verified Date/Time: 10/27/2021 13:34:45 -GLUCOSE [id number] 13:13:55 Test Item Value Reference Range Interpretation Comments POC-GLUCOSE METER 178 mg/dL 70-110 H : TESTED A T [facility] 6720 (LearnUp) (test code = [facility], 1538) [id number]: Quantitative Associate/Techni shasha ID = [id number] for Shari Finley POCT-GLUCOSE [id number] 10:17:01 Test Item Value Reference Range Interpretation Comments POC-GLUCOSE METER 206 mg/dL 70-110 H : TESTED A T [facility] 6720 (LearnUp) (test code = [facility], 1538) 82062: Quantitative Associate/Techni shasha ID = [id number] for Shari Finley HEMOGLOBIN [id number] 09:24:15 Test Item Value Reference Range Interpretation Comments HEMOGLOBIN A1C 8.9 % See_Comment H [Automated m essage] ELECTROPHORESIS ([employer]) The system which (test code = 3811) generated this result transmitted ref erence range: <=5.6%. The reference range was not used to int erpret this result as normal/abnormal . "The A1c is measured using a NGSP-certified method. HbA1c value equal to or greater than 6.5% as thediagnosis cutoff for diabetes. An HbA1c value of 5.7- 6.4% indicates increased risk for diabetes (prediabetes)."Quantitative Associate ID - ADMOperator ID - ADMBASIC METABOLIC [id number] 07:19:04 Test Item Value Reference Range Interpretation Comments SODIUM (BEAKER) (test 136 meq/L 136-145 code = 381) POTASSIUM (BEAKER) 3.8 meq/L 3.5-5.1 (test code = 379) CHLORIDE (BEAKER) 104 meq/L 98-107 (test code = 382) CO2 (BEAKER) (test 22 meq/L 22-29 code = 355) BLOOD UREA NITROGEN 9 mg/dL 7-21 (BEAKER) (test code = 354) CREATININE (BEAKER) 0.68 mg/dL 0.57-1.25 (test code = 358) GLUCOSE RANDOM 152 mg/dL 70-105 H (BEAKER) (test code = 652) CALCIUM (BEAKER) 8.5 mg/dL 8.4-10.2 (test code = 697) EGFR (BEAKER) (test INSUFFIC IENT CLINICAL code = 1092) DATA TO CALCULA TE ESTIMATED GFR. Quantitative Associate ID - BRANDY MTSH/FREE T4 IF [id number] 07:16:58 Test Item Value Reference Range Interpretation Comments THYROID STIMULATING HORMONE 0.810 uIU/mL 0.350-4.940 (BEAKER) (test code = 772) Quantitative Associate ID - NÉSTOR [id number] 06:49:12 Test Item Value Reference Range Interpretation Comments MAGNESIUM (BEAKER) (test code = 1.7 mg/dL 1.6-2.6 627) Quantitative Associate ID - BRANDY MPROTHROMBIN TIME/[id number] 05:41:29 Test Item Value Reference Range Interpretation Comments PROTIME (BEAKER) 14.0 seconds 11.9-14.2 (test code = 759) INR (BEAKER) (test 1.10 See_Comment [Automat ed message] code = 370) The system App[employer] generated this result transmitted ref erence range: <=5.90. The reference range was not used to int erpret this result as normal/abnormal . RECOMMENDED COUMADIN/WARFARIN INR THERAPY RANGESSTANDARD DOSE: 2.0 - 3.0 Includes: PROPHYLAXIS for venous thrombosis, systemic embolization; TREATMENT for venous thrombosis and/or pulmonary embolus.HIGH RISK: Target INR is 2.5-3.5 for patients with mechanical heart valves.CBC (HEMOGRAM ONLY)2021-10-27 05:36:22 Test Item Value Reference Range Interpretation Comments WHITE BLOOD CELL COUNT (BEAKER) 11.5 K/ L 3.5-10.5 H (test code = 775) RED BLOOD CELL COUNT (BEAKER) 4.75 M/ L 3.93-5.22 (test code = 761) HEMOGLOBIN (BEAKER) (test code = 13.6 GM/DL 11.2-15.7 410) HEMATOCRIT (BEAKER) (test code = 41.4 % 34.1-44.9 411) MEAN CORPUSCULAR VOLUME (BEAKER) 87.2 fL 79.4-94.8 (test code = 753) MEAN CORPUSCULAR HEMOGLOBIN 28.6 pg 25.6-32.2 (BEAKER) (test code = 751) MEAN CORPUSCULAR HEMOGLOBIN CONC 32.9 GM/DL 32.2-35.5 (BEAKER) (test code = 752) RED CELL DISTRIBUTION WIDTH 12.9 % 11.7-14.4 (BEAKER) (test code = 412) PLATELET COUNT (BEAKER) (test 163 K/CU MM 150-450 code = 756) MEAN PLATELET VOLUME (BEAKER) 11.3 fL 9.4-12.3 (test code = 754) NUCLEATED RED BLOOD CELLS 0 /100 WBC 0-0 (BEAKER) (test code = 413) SARS-COV2/RT-PCR ([facility])2021-10-27 03:05:51 Test Item Value Reference Range Interpretation Comments SARS-COV2/RT-PCR (test Negative Not Detected, Negative, code = 4402668) See external report for linked test SARS-COV-2 PERFORMING LAB [facility] (test code = 1561845) Negative result for this test determines that SARS-CoV-2 RNA was not present in the specimen above the Limit of Detection (LOD). However, Negative results do not preclude SARS-CoV-2 infection and should not be used as the sole basis for treatment or patient management decisions. Negative results must be combined with clinical observations, patient history, and epidemiological information. A false negative result may occur if a specimen is improperly collected, transported or handled. A false negative result should be considered if patient's recent exposures or clinical presentation indicate that COVID-19 (SARS-CoV-2) is likely and diagnostic tests for other causes of illness are negative. Re-testing should be considered in cases of suspected false negatives.The limit of detection for this assay is 800 copies/mL.This SARS CoV-2 test is a real-time RT-PCR test intended for the qualitative detection of nucleic acid from SARS-CoV-2 in a nasopharyngeal swab specimen collected from individuals suspected of COVID-19 by their healthcare provider.This test has not been Food and Drug Administration (FDA) cleared or approved. This is a modified version of an approved Emergency Use Authorization (EUA) and is in the process of review by the FDA. Once authorized by the FDA, the issued EUA will be effective until the declaration that circumstances exist justifying the authorization of the emergency use ofin vitro diagnostic tests for detection and/or diagnosis of COVID-19 is terminated under Section 564(b)(2) of the Act or the EUA is revoked under Section 564(g) of the Act.Fact Sheet for Healthcare Prov iders:https://www.[employer]/sites/default/files/product/documents/Fact_Sheet_HC _Okdjeoiko_Rolm_YVBO-PpP-0.pdfFact Sheet for Healthcare Patients:https://www.[employer]/sites/default/files/product/docume nts/Nplw_Vztgp_Ktjbdemn_Qtoc_JDUQ-TkA-3.pdfPerforming Laboratory:[facility], [place] [address]JPUK-BSNVNNP METER 2021-10-26 21:48:16 Test Item Value Reference Range Interpretation Comments POC-GLUCOSE METER 246 mg/dL 70-110 H : TESTED A T [facility] 6720 (KRYSTAL) (test code = SANDRAHUNG Gallo [facility], 1538) [address]: Quantitative Associate/Techni shasha ID = [id number] for Milagros Finley HIGH SENSITIVITY TROPONIN [id number] 21:47:32 Test Item Value Reference Range Interpretation Comments HIGH SENSITIVITY 495 pg/ml See_Comment H [Automated message] TROPONIN I (test code The milly pickard which = [id number]) generated this result transmitted ref erence range: <=17. Th e reference range was not used to int erpret this result as normal/abnormal . Quantitative Associate ID - [facility]ANDY [facility] [employer] PROFESSIONAL STAT High Sensitivity Troponin-I results should be used in conjunction with other diagnostic information such as ECG, clinical observations and information, and patient symptoms to aid in the diagnosis of [place].CBC W/PLT COUNT & AUTO [id number] 19:53:14 Test Item Value Reference Range Interpretation Comments WHITE BLOOD CELL COUNT (BEAKER) 11.1 K/ L 3.5-10.5 H (test code = 775) RED BLOOD CELL COUNT (BEAKER) 4.76 M/ L 3.93-5.22 (test code = 761) HEMOGLOBIN (BEAKER) (test code = 13.6 GM/DL 11.2-15.7 410) HEMATOCRIT (BEAKER) (test code = 41.7 % 34.1-44.9 411) MEAN CORPUSCULAR VOLUME (BEAKER) 87.6 fL 79.4-94.8 (test code = 753) MEAN CORPUSCULAR HEMOGLOBIN 28.6 pg 25.6-32.2 (BEAKER) (test code = 751) MEAN CORPUSCULAR HEMOGLOBIN CONC 32.6 GM/DL 32.2-35.5 (BEAKER) (test code = 752) RED CELL DISTRIBUTION WIDTH 12.8 % 11.7-14.4 (BEAKER) (test code = 412) PLATELET COUNT (BEAKER) (test 171 K/CU MM 150-450 code = 756) MEAN PLATELET VOLUME (BEAKER) 12.1 fL 9.4-12.3 (test code = 754) NUCLEATED RED BLOOD CELLS 0 /100 WBC 0-0 (BEAKER) (test code = 413) NEUTROPHILS RELATIVE PERCENT 67 % (BEAKER) (test code = 429) LYMPHOCYTES RELATIVE PERCENT 26 % (BEAKER) (test code = 430) MONOCYTES RELATIVE PERCENT 6 % (BEAKER) (test code = 431) EOSINOPHILS RELATIVE PERCENT 1 % (BEAKER) (test code = 432) BASOPHILS RELATIVE PERCENT 0 % (BEAKER) (test code = 437) NEUTROPHILS ABSOLUTE COUNT 7.40 K/ L 1.56-6.13 H (BEAKER) (test code = 670) LYMPHOCYTES ABSOLUTE COUNT 2.83 K/ L 1.18-3.74 (BEAKER) (test code = 414) MONOCYTES ABSOLUTE COUNT (BEAKER) 0.66 K/ L 0.24-0.36 H (test code = 415) EOSINOPHILS ABSOLUTE COUNT 0.11 K/ L 0.04-0.36 (BEAKER) (test code = 416) BASOPHILS ABSOLUTE COUNT (BEAKER) 0.04 K/ L 0.01-0.08 (test code = 417) IMMATURE GRANULOCYTES-RELATIVE 0 % 0-1 PERCENT (BEAKER) (test code = 2801) COMPREHENSIVE METABOLIC [id number] 19:36:48 Test Item Value Reference Range Interpretation Comments TOTAL PROTEIN 6.5 gm/dL 6.0-8.3 (BEAKER) (test code = 770) ALBUMIN (BEAKER) 3.3 g/dL 3.5-5.0 L (test code = 1145) ALKALINE PHOSPHATASE 101 U/L 40-150 (BEAKER) (test code = 346) BILIRUBIN TOTAL 0.3 mg/dL 0.2-1.2 (BEAKER) (test code = 377) SODIUM (BEAKER) (test 136 meq/L 136-145 code = 381) POTASSIUM (BEAKER) 3.8 meq/L 3.5-5.1 (test code = 379) CHLORIDE (BEAKER) 102 meq/L 98-107 (test code = 382) CO2 (BEAKER) (test 25 meq/L 22-29 code = 355) BLOOD UREA NITROGEN 9 mg/dL 7-21 (BEAKER) (test code = 354) CREATININE (BEAKER) 0.76 mg/dL 0.57-1.25 (test code = 358) GLUCOSE RANDOM 186 mg/dL 70-105 H (BEAKER) (test code = 652) CALCIUM (BEAKER) 8.8 mg/dL 8.4-10.2 (test code = 697) AST (SGOT) (BEAKER) 13 U/L 5-34 (test code = 353) ALT (SGPT) (BEAKER) 13 U/L 6-55 (test code = 347) EGFR (BEAKER) (test INSUFFIC IENT CLINICAL code = 1092) DATA TO CALCULA TE ESTIMATED GFR. Quantitative Associate ID - BRANDY MB-TYPE NATRIURETIC FACTOR (BNP)2021-10-26 19:31:29 Test Item Value Reference Range Interpretation Comments B-TYPE NATRIURETIC PEPTIDE (BEAKER) 86 pg/mL 0-100 (test code = 700) Quantitative Associate ID - BRANDY MLIPID [id number] 19:24:31 Test Item Value Reference Range Interpretation Comments TRIGLYCERIDES (BEAKER) (test code = 164 mg/dL 540) CHOLESTEROL (BEAKER) (test code = 141 mg/dL 631) HDL CHOLESTEROL (BEAKER) (test code 40 mg/dL = 976) LDL CHOLESTEROL CALCULATED (BEAKER) 68 mg/dL (test code = 633) Triglyceride Reference Range: Low Risk <150 Borderline 150-199 High Risk 200- 499 Very High Risk >=500Cholesterol Reference Range: Low Risk <200 Borderline 200-239 High Risk >240HDL Cholesterol Reference Range: Low Risk >=60 High Risk <40LDL Cholesterol Reference Range: Optimal <100 Near Optimal 100-129 Borderline 130-159 High 160-189 Very High >=190 Quantitative Associate ID - BRANDY [id number] 19:24:30 Test Item Value Reference Range Interpretation Comments MAGNESIUM (KRYSTAL) (test code = 1.6 mg/dL 1.6-2.6 627) Quantitative Associate ID - BRANDY MRAD, CHEST, 1 VIEW, NON [id number] 18:54:00Reason for exam:->chest painShould this be performed at the bedside?->Yes [facility] 1960 Sex: FFINAL REPORT EXAMINATION: RAD, CHEST, 1 VIEW, NON DEPT. INDICATION: 60-year-old female with chest pain. COMPARISON: None. FINDINGS:The cardiac silhouette is normal in size. Mild calcification of the thoracic aorta. Left basilar discoid atelectasis. No pleural effusion. No pneumothorax. Noacute osseous abnormality. Visualized soft tissues are unremarkable. IMPRESSION:No evidence of pneumonia or other acute cardiopulmonary abnormality. Signed: Scar Olivasepmanuel Verified Date/Time: 10/26/2021 18:54:47 Reading Location: [facility] C013X Ortho Consult Reading Room POCT-GLUCOSE [id number] 18:15:06 Test Item Value Reference Range Interpretation Comments POC-GLUCOSE METER 219 mg/dL 70-110 H : TESTED A T [facility] 6720 ([facility]) (test code = JAVAN SANCHEZ [place], 1538) [address]: Quantitative Associate/Techni shasha ID = [id number] for Shari Finley
[2021-12-25 13:52] LABS: Hematocrit 40.7 % (36.0-45.0); MCV 86.2 fL (80-100); MPV 10.4 fL (7.6-11.3); RBC Red Blood Cell Count 4.72 M/uL (3.86-4.86)
[2021-12-25 14:04] LABS: Protime INR 1.32
[2021-12-25 14:08] LABS: SARS-CoV-2 Antigen Rapid Res Negative (Negative)
[2021-12-25 14:12] LABS: Albumin 2.5 g/dL (3.4-5.0); Bilirubin Direct 0.5 mg/dL (0-0.2); Bilirubin Total 1.1 mg/dL (0.2-1.0); Magnesium 1.6 mg/dL (1.8-2.4); Potassium 3.2 mmol/L (3.5-5.1); Protein, Total 7.6 g/dL (6.4-8.2)
--- NOTE | 2021-12-25 14:16 | RAD REPORT ---
EXAM DESCRIPTION: RAD - Chest Single View - 12/25/2021 1:48 pm CLINICAL HISTORY: s/p surgery, leg wound, hypertension, history of liver cancer COMPARISON: Portable 10/24/2021 TECHNIQUE: AP portable chest image was obtained 12/25/2021 1:48 pm . FINDINGS: Lung volumes are low accentuating the baseline interstitial pattern. Focal opacification i s present in the left lung base most likely an acute infectious pneumonia. Patient has a history of s urgery 1.5 months earlier. Remnant of aspiration pneumonia is possible but lesser in likelihood. Shaun elation can be made with any acute clinical symptoms. No significant failure or volume overload. Heart and vasculature are normal. No measurable pleural ef fusion and no pneumothorax. No acute bony abnormality seen. No acute aortic findings suspected. IMPRESSION: Small left lung base pneumonia.
[2021-12-25] MEDS ORDERED: Meropenem 1000 MG/VIAL IV ONE (14:44)
[2021-12-25] MEDS ORDERED: VANCOMYCIN 1 GM/VIAL ONE (14:45)
[2021-12-25] MEDS ORDERED: ASPIRIN 81 MG CHEWABLE TABLET ONE (14:45)
[2021-12-25] MEDS ORDERED: NA CHLORIDE 0.9% 100 ML ONE (14:45)
[2021-12-25] MEDS ORDERED: NA CHLORIDE 0.9% 250 ML ONE (14:46)
[2021-12-25 16:02] LABS: Blood Morphology Comment NOT SEEN (NOT SEEN); Platelet Estimate ADEQ
--- NOTE | 2021-12-25 16:06 | EDPHYS ---
Physician Documentation [facility] Name: Alexa Barajas Age: 61 yrs Sex: Female : 1960 Arrival Date: 12/25/2021 Time: 12:59 Bed 24 Private MD: ED Physician Bridgetet Morgan HPI: 12/25 15:44 This 61 yrs old Female presents to ER via Wheelchair with complaints of Leg Pain. snw 15:44 The patient presents with an abscess, moderate-sized, pain, that is acute, swelling. snw The complaints affect the medial aspect of left calf. Context: The problem was sustained at home, resulted from vein harvest area, the patient is not able to ambulate. Onset: The symptoms/episode began/occurred gradually, 1 week(s) ago, and became worse yesterday. Associated signs and symptoms: Pertinent positives: calf tenderness, swelling, warmth. Treatment prior to arrival includes: elevation of the extremity. Severity of symptoms: At their worst the symptoms were moderate, severe. It is unknown whether or not the patient has had similar symptoms in the past. The patient has not recently seen a physician, pt was in hospital x 1 mo, went to rehab at [facility] x 2 weeks. Historical: - Allergies: 13:13 Cephalexin (Anaphylaxis); ld1 13:13 Keflex (Anaphylaxis); ld1 13:13 PENICILLINS (Anaphylaxis); ld1 - Home Meds: 13:14 atorvastatin 40 mg oral tab 1 tab once daily [Active]; Bumex 2 mg Oral tab 1 tab once ld1 daily [Active]; aspirin 81 mg Oral cap 1 cap once daily [Active]; Humulin 70/30 U-100 Insulin 100 unit/mL (70-30) Sub-Q crtg [Active]; - PMHx: 13:13 Diabetes - IDDM; Hypertension; liver cancer; ld1 - PSHx: 13:13 Coronary artery bypass graft; ld1 - Immunization history:: Adult Immunizations up to date, Client reports having NOT received the Covid vaccine. - Social history:: Smoking status: Patient denies any tobacco usage or history of. Patient/guardian denies using alcohol. - Hospitalizations: : Patient was recently seen at [facility], cardiac bypass 1.5 mo ago. ROS: 15:46 Constitutional: Negative for fever, chills, and weight loss, Eyes: Negative for injury, snw pain, redness, and discharge, ENT: Negative for injury, pain, and discharge, Neck: Negative for injury, pain, and swelling, Cardiovascular: Negative for chest pain, palpitations, and edema, Respiratory: Negative for shortness of breath, cough, wheezing, and pleuritic chest pain Abdomen/GI: Negative for abdominal pain, nausea, vomiting, diarrhea, and constipation, Back: Negative for injury and pain, : Negative for injury, bleeding, discharge, and swelling, MS/Extremity: Negative for injury and deformity, Neuro: Negative for headache, weakness, numbness, tingling, and seizure, Psych: Negative for depression, anxiety, suicide ideation, homicidal ideation, and hallucinations. 15:46 Skin: Positive for cellulitis, discoloration, swelling. Exam: 13:18 Constitutional: This is a well developed, well nourished patient who is awake, alert, snw and in no acute distress but tred appearing Head/Face: Normocephalic, atraumatic. Eyes: Pupils equal round and reactive to light, extra-ocular motions intact. Lids and lashes normal. Conjunctiva and sclera are non-icteric and not injected. Cornea within normal limits. Periorbital areas with no swelling, redness, or edema. ENT: Nares patent. No nasal discharge, no septal abnormalities noted. Tympanic membranes are normal and external auditory canals are clear. Oropharynx with no redness, swelling, or masses, exudates, or evidence of obstruction, uvula midline. Mucous membranes moist. Neck: Trachea midline, no thyromegaly or masses palpated, and no cervical lymphadenopathy. Supple, full range of motion without nuchal rigidity, or vertebral point tenderness. No Meningismus. Chest/axilla: Normal chest wall appearance and motion. Nontender with no deformity. No lesions are appreciated. 13:18 Respiratory: Lungs have equal breath sounds bilaterally, clear to ausculton with diminished breath sounds to bases. No rales, rhonchi or wheezes noted. No increased work of breathing, no retractions or nasal flaring. Abdomen/GI: Soft, non-tender, with normal bowel sounds. No distension or tympany. No guarding or rebound. No evidence of tenderness throughout. Back: No spinal tenderness. No costovertebral tenderness. Full range of motion. Neuro: Awake and alert, GCS 15, oriented to person, place, time, and situation. Cranial nerves II-XII grossly intact. Motor strength 5/5 in all extremities. Sensory grossly intact. Cerebellar exam normal. Normal gait. Psych: Awake, alert, with orientation to person, place and time. Behavior, mood, and affect are within normal limits. 13:18 Cardiovascular: Rate: tachycardic, Rhythm: regular, Pulses: no pulse deficits are appreciated, Heart sounds: murmur, systolic, grade 4 over 6, Edema: pedal edema, that is mild. 13:18 Skin: Appearance: normal except for affected area, cellulitis, that is moderate, well demarcated, on the medial aspect of left calf, graft site from open heart surgery at [facility], open, draining pus, with surrounding cellulitis to left proximal calf. Pt vasculopathic. diabetic, infected. 13:18 Neuro: Orientation: to person, place \T\ time. to person, place, time, situation, Mentation: is normal, Memory: is normal, Cranial nerves: Speech is dysarthric, s/p CVA x 5. Sensation: no obvious gross deficits, seizure activity, is not displayed by the patient. Vital Signs: 13:14 BP 121 / 86; Pulse 98; Resp 18; Temp 98.4(O); Pulse Ox 98% on R/A; Weight 79.38 kg; ld1 Height 5 ft. 4 in. (162.56 cm); Pain 5/10; 14:30 BP 121 / 75; Pulse 110; Resp 17; Pulse Ox 98% on R/A; tw2 15:48 BP 115 / 62; Pulse 108; Resp 17; Pulse Ox 99% on R/A; tw2 16:30 BP 122 / 59; Pulse 113; Resp 17; Pulse Ox 100% on R/A; tw2 17:16 BP 106 / 60; Pulse 116; Resp 17; Pulse Ox 95% on R/A; tw2 18:18 BP 108 / 86; Pulse 116; Resp 17; Pulse Ox 100% on R/A; tw2 20:33 BP 140 / 90; Pulse 111; Resp 18; Pulse Ox 98% on R/A; sm5 13:14 Body Mass Index 30.04 (79.38 kg, 162.56 cm) ld1 MDM: 13:29 Patient medically screened. snw 15:48 Data reviewed: vital signs, nurses notes. Data interpreted: Pulse oximetry: on room air snw is 99 %. Interpretation: normal. Counseling: I had a detailed discussion with the patient and/or guardian regarding: the historical points, exam findings, and any diagnostic results supporting the discharge/admit diagnosis, lab results, radiology results, the need for further work-up and treatment in the hospital, the need to transfer to another facility, surgical complication. Response to treatment: the patient's symptoms have mildly improved after treatment. Special discussion: I discussed in detail with the patient the higher chance of wound infection based on his presenting history. 15:57 Physician consultation: Dr. Seth Rowe regarding regarding transfer, to [facility]. snw discharges patient from the emergency department. 16:39 Physician consultation: pt refuses transfer. Dr. Mohr notified. Dr. Mohr to bedside.snw 12/25 13:28 Order name: Blood Culture Adult (2) snw 12/25 13:28 Order name: CBC with Diff; Complete Time: 16:06 snw 12/25 13:28 Order name: CMP; Complete Time: 14:36 snw 12/25 13:28 Order name: Lactate; Complete Time: 15:18 snw 12/25 13:28 Order name: Protime (+inr); Complete Time: 14:05 snw 12/25 13:28 Order name: Ptt, Activated; Complete Time: 14:05 snw 12/25 13:28 Order name: Basic Metabolic Panel snw 12/25 13:28 Order name: LFT's; Complete Time: 14:36 snw 12/25 13:28 Order name: Magnesium; Complete Time: 14:36 snw 12/25 13:28 Order name: NT PRO-BNP; Complete Time: 14:36 snw 12/25 13:28 Order name: Troponin HS; Complete Time: 14:36 snw 12/25 13:33 Order name: SARS RAPID; Complete Time: 14:09 jw7 12/25 16:02 Order name: Manual Differential; Complete Time: 16:06 EDMS 12/25 13:28 Order name: Chest Single View XRAY; Complete Time: 14:36 snw 12/25 13:28 Order name: Cardiac monitoring; Complete Time: 17:18 w 12/25 13:28 Order name: EKG - Nurse/Tech; Complete Time: 14:14 w 12/25 13:28 Order name: IV Saline Lock - Large Bore; Complete Time: 13:32 w 12/25 13:28 Order name: Labs collected and sent; Complete Time: 15:12 snw 12/25 13:28 Order name: O2 Per Protocol; Complete Time: 14:03 w 12/25 13:28 Order name: EKG; Complete Time: 13:30 w 12/25 13:28 Order name: O2 Sat Monitoring; Complete Time: 14:03 snw 12/25 13:28 Order name: IV Saline Lock; Complete Time: 13:32 snw 12/25 15:37 Order name: Labs - recollect needed: Recollect blood cultures-red top needs 2ml; em1 Complete Time: 16:50 EC:20 Rate is 112 beats/min. Rhythm is regular. QRS [place] is Normal. ME interval is normal. snw QRS interval is normal. QT interval is normal. No Q waves. T waves are Normal. No ST changes noted. Clinical impression: NSR w/ Non-specific ST/T Changes. Administered Medications: 14:40 Drug: Aspirin Chewable Tablet 324 mg Route: PO; tw2 17:18 Follow up: Response: No adverse reaction tw2 15:25 Drug: Meropenem 1 grams Route: IV; Rate: calculated rate; Site: left antecubital; tw2 16:25 Follow up: Response: No adverse reaction; IV Status: Completed infusion; IV Intake: tw2 100ml 16:30 Drug: vancoMYCIN 1 grams Route: IVPB; Infused Over: 2 hrs; Site: right forearm; tw2 16:33 Drug: Magnesium Sulfate 1 grams Route: IVPB; Infused Over: 1 hrs; Site: left ap3 antecubital; 17:33 Follow up: Response: No adverse reaction; IV Status: Completed infusion; IV Intake: tw2 100ml 16:59 Drug: Insulin Regular Human 5 units {Co-Signature: ap3 (Vero Villagran RN).} Route: tw2 IVP; Site: left antecubital; 18:17 Follow up: Response: No adverse reaction tw2 16:59 Drug: Potassium Chloride 20 mEq Route: PO; tw2 17:18 Follow up: Response: No adverse reaction tw2 18:17 Drug: Dilaudid (HYDROmorphone) 0.5 mg Route: IVP; Site: right forearm; tw2 Disposition Summary: 12/25/21 16:06 Transfer Ordered Transfer Location: [facility] snw Reason: Higher level of care snw Condition: Stable snw Problem: new snw Symptoms: have worsened snw Accepting Physician: Dr. Roland Rowe(12/25/21 20:33) sm5 Diagnosis - Sepsis, unspecified organism snw - Infection following a procedure snw - Unspecified bacterial pneumonia snw Discharge Instructions: - Discharge Summary Sheet ke1 Forms: - Medication Reconciliation Form snw - SBAR form snw Signatures: Dispatcher [employer] EDMS Ruth Ann Saldivar FNP-C RADIOLOGIC TECHNICIAN-[place] em1 Shaye Holland RN RN tw2 Vero Villagran RN RN ap3 Josie Preston RN RN ld1 Ela Villalobos RN RN sm5 Vero Villagran RN ap3 Corrections: (The following items were deleted from the chart) 14:03 13:28 Accucheck ordered. snw tw2 15:48 13:18 Constitutional: This is a well developed, well nourished patient who is awake, snw alert, and in no acute distress. Head/Face: Normocephalic, atraumatic. Eyes: Pupils equal round and reactive to light, extra-ocular motions intact. Lids and lashes normal. Conjunctiva and sclera are non-icteric and not injected. Cornea within normal limits. Periorbital areas with no swelling, redness, or edema. ENT: Nares patent. No nasal discharge, no septal abnormalities noted. Tympanic membranes are normal and external auditory canals are clear. Oropharynx with no redness, swelling, or masses, exudates, or evidence of obstruction, uvula midline. Mucous membranes moist. Neck: Trachea midline, no thyromegaly or masses palpated, and no cervical lymphadenopathy. Supple, full range of motion without nuchal rigidity, or vertebral point tenderness. No Meningismus. Chest/axilla: Normal chest wall appearance and motion. Nontender with no deformity. No lesions are appreciated. snw 15:48 13:18 Respiratory: Lungs have equal breath sounds bilaterally, clear to auscultation snw and percussion. No rales, rhonchi or wheezes noted. No increased work of breathing, no retractions or nasal flaring. Abdomen/GI: Soft, non-tender, with normal bowel sounds. No distension or tympany. No guarding or rebound. No evidence of tenderness throughout. Back: No spinal tenderness. No costovertebral tenderness. Full range of motion. Neuro: Awake and alert, GCS 15, oriented to person, place, time, and situation. Cranial nerves II-XII grossly intact. Motor strength 5/5 in all extremities. Sensory grossly intact. Cerebellar exam normal. Normal gait. Psych: Awake, alert, with orientation to person, place and time. Behavior, mood, and affect are within normal limits. snw 16:21 16:06 Dr. Roland Rowe [place] snw 19:53 15:55 Tib Fib Left Wo Con ordered. EDMS EDMS 20:33 16:21 Dr. Roland alcazar sm5
--- NOTE | 2021-12-25 16:06 | ER ---
Nurse's Notes [facility] Name: Alexa Barajas Age: 61 yrs Sex: Female : 1960 Arrival Date: 12/25/2021 Time: 12:59 Bed 24 Private MD: Diagnosis: Sepsis, unspecified organism;Infection following a procedure;Unspecified bacterial pneumonia Presentation: 12/25 13:09 Chief complaint: Chief complaint: Patient states: Lower left leg wound - reports the ld1 wound being from her CABG 1.5 months ago. 13:14 Coronavirus screen: At this time, the client does not indicate any symptoms associated ld1 with coronavirus-19. Ebola Screen: No symptoms or risks identified at this time. Initial Sepsis Screen: Does the patient meet any 2 criteria? No. Patient's initial sepsis screen is negative. Does the patient have a suspected source of infection? No. Patient's initial sepsis screen is negative. Risk Assessment: Do you want to hurt yourself or someone else? Patient reports no desire to harm self or others. Onset of symptoms was December 25, 2021 at 13:16. 13:14 Method Of Arrival: Wheelchair ld1 13:14 Acuity: ROXANNA 3 ld1 Triage Assessment: 13:14 General: Appears in no apparent distress. comfortable, Behavior is calm, cooperative. ld1 Pain: Complains of pain in medial aspect of left calf Pain does not radiate. Pain currently is 5 out of 10 on a pain scale. EENT: No signs and/or symptoms were reported regarding the EENT system. Neuro: Level of Consciousness is awake, alert, obeys commands, Oriented to person, place, time, situation. Cardiovascular: Capillary refill < 3 seconds Patient's skin is warm and dry. Respiratory: Airway is patent Respiratory effort is even, unlabored. GI: Abdomen is round non-distended. : No signs and/or symptoms were reported regarding the genitourinary system. Derm: No signs and/or symptoms reported regarding the dermatologic system. Musculoskeletal: No signs and/or symptoms reported regarding the musculoskeletal system. Historical: - Allergies: 13:13 Cephalexin (Anaphylaxis); ld1 13:13 Keflex (Anaphylaxis); ld1 13:13 PENICILLINS (Anaphylaxis); ld1 - Home Meds: 13:14 atorvastatin 40 mg oral tab 1 tab once daily [Active]; Bumex 2 mg Oral tab 1 tab once ld1 daily [Active]; aspirin 81 mg Oral cap 1 cap once daily [Active]; Humulin 70/30 U-100 Insulin 100 unit/mL (70-30) Sub-Q crtg [Active]; - PMHx: 13:13 Diabetes - IDDM; Hypertension; liver cancer; ld1 - PSHx: 13:13 Coronary artery bypass graft; ld1 - Immunization history:: Adult Immunizations up to date, Client reports having NOT received the Covid vaccine. - Social history:: Smoking status: Patient denies any tobacco usage or history of. Patient/guardian denies using alcohol. - Hospitalizations: : Patient was recently seen at [facility], cardiac bypass 1.5 mo ago. Screenin:17 Abuse screen: Denies threats or abuse. Nutritional screening: No deficits noted. tw2 Tuberculosis screening: No symptoms or risk factors identified. Fall Risk None identified. Assessment: 13:29 Reassessment: IV, LABS, COVID swab completed in triage. ld1 15:46 Reassessment: Reassessment: first abx started at 1525. recollect ordered at 1537. tw2 15:47 Reassessment: lab notified of recollect needed for blood cultures. tw2 16:30 Reassessment: Patient appears in no apparent distress at this time. No changes from tw2 previously documented assessment. Patient and/or family updated on plan of care and expected duration. Pain level reassessed. Patient is alert, oriented x 3, equal unlabored respirations, skin warm/dry/pink. 17:17 Reassessment: Patient appears in no apparent distress at this time. No changes from tw2 previously documented assessment. Patient and/or family updated on plan of care and expected duration. Pain level reassessed. Patient is alert, oriented x 3, equal unlabored respirations, skin warm/dry/pink. 18:15 Reassessment: pt c/o pain left leg. provider notified. medicated per order. tw2 18:18 Reassessment: Patient appears in no apparent distress at this time. No changes from tw2 previously documented assessment. Patient and/or family updated on plan of care and expected duration. Pain level reassessed. Patient is alert, oriented x 3, equal unlabored respirations, skin warm/dry/pink. 19:56 Reassessment: report given to Ada MAHMOOD. ke1 Vital Signs: 13:14 BP 121 / 86; Pulse 98; Resp 18; Temp 98.4(O); Pulse Ox 98% on R/A; Weight 79.38 kg; ld1 Height 5 ft. 4 in. (162.56 cm); Pain 5/10; 14:30 BP 121 / 75; Pulse 110; Resp 17; Pulse Ox 98% on R/A; tw2 15:48 BP 115 / 62; Pulse 108; Resp 17; Pulse Ox 99% on R/A; tw2 16:30 BP 122 / 59; Pulse 113; Resp 17; Pulse Ox 100% on R/A; tw2 17:16 BP 106 / 60; Pulse 116; Resp 17; Pulse Ox 95% on R/A; tw2 18:18 BP 108 / 86; Pulse 116; Resp 17; Pulse Ox 100% on R/A; tw2 20:33 BP 140 / 90; Pulse 111; Resp 18; Pulse Ox 98% on R/A; sm5 13:14 Body Mass Index 30.04 (79.38 kg, 162.56 cm) ld1 ED Course: 12:59 Patient arrived in ED. rg4 13:01 Noman Pelaez PA is PHCP. cp 13:02 Bridgette Morgan MD is Attending Physician. cp 13:14 Arm band placed on right wrist. ld1 13:16 Triage completed. ld1 13:18 PHCP role handed off by Noman Pelaez PA snw 13:18 Ruth Ann Saldivar FNP-C is PHCP. snw 13:19 Inserted saline lock: 18 gauge in left antecubital area, using aseptic technique. Blood ld1 collected. 13:34 Basic Metabolic Panel Sent. jw7 13:34 Troponin HS Sent. jw7 13:34 CMP Sent. jw7 13:50 Chest Single View XRAY In Process Unspecified. EDMS 14:03 Shaye Holland, RN is Primary Nurse. tw2 14:03 SARS RAPID Sent. tw2 14:14 EKG done, by ED staff, reviewed by Ruth Ann BECK. em1 14:42 Lactate Sent. kc6 15:25 Blood Culture Adult (2) Sent. tw2 15:33 initiated transfer to [facility]. bd 16:06 Bed in low position. Call light in reach. Pulse ox on. NIBP on. Warm blanket given. tw2 16:13 pt accepted in transfer to [facility] by dr Seth Rowe, admit approval given by man Rizo RN. 16:15 Inserted saline lock: 22 gauge in right forearm, using aseptic technique. Blood tw2 collected. 17:25 unsuccessful attempt to call report 3 times after being placed on hold. per staff nurse tw2 yairRN will call me back phone number given. 17:58 unsuccessful attempt to call report to new room 1142 at [facility] per tw2 Chelseystaff nurse is on break. 20:32 No provider procedures requiring assistance completed. Patient transferred, IV remains sm5 in place. Administered Medications: 14:40 Drug: Aspirin Chewable Tablet 324 mg Route: PO; tw2 17:18 Follow up: Response: No adverse reaction tw2 15:25 Drug: Meropenem 1 grams Route: IV; Rate: calculated rate; Site: left antecubital; tw2 16:25 Follow up: Response: No adverse reaction; IV Status: Completed infusion; IV Intake: tw2 100ml 16:30 Drug: vancoMYCIN 1 grams Route: IVPB; Infused Over: 2 hrs; Site: right forearm; tw2 16:33 Drug: Magnesium Sulfate 1 grams Route: IVPB; Infused Over: 1 hrs; Site: left ap3 antecubital; 17:33 Follow up: Response: No adverse reaction; IV Status: Completed infusion; IV Intake: tw2 100ml 16:59 Drug: Insulin Regular Human 5 units {Co-Signature: ap3 (Vero Villagran RN).} Route: tw2 IVP; Site: left antecubital; 18:17 Follow up: Response: No adverse reaction tw2 16:59 Drug: Potassium Chloride 20 mEq Route: PO; tw2 17:18 Follow up: Response: No adverse reaction tw2 18:17 Drug: Dilaudid (HYDROmorphone) 0.5 mg Route: IVP; Site: right forearm; tw2 Medication: 17:17 VIS not applicable for this client. tw2 Intake: 16:25 IV: 100ml; Total: 100ml. tw2 17:33 IV: 100ml; Total: 200ml. tw2 Outcome: 16:06 ER care complete, transfer ordered by MD. alcazar 20:32 Transferred by ground EMS to [facility] [place] completed. sm5 X-rays sent w/ patient. 20:32 Condition: stable 20:32 Instructed on the need for transfer. 20:33 Patient left the ED. sm5 Signatures: Dispatcher [employer] EDMS Bridget Rachel Shelly, PRINTING ASSISTANT-C PRINTING ASSISTANT-Csnw Sher Hinton em1 Noman Pelaez PA PA cp Wise, Tara, RN RN tw2 Miriam Kiran rg4 Vero Villagran RN RN ap3 Josie Preston RN RN ld1 Ela Villalobos RN RN sm5 Christen Rogers jw7 Bon Triplett RN RN ke1 Silvia Olivas kc6 Vero Villagran RN ap3 Corrections: (The following items were deleted from the chart) 13:14 13:09 Chief complaint: ld1 ld1 13:30 13:19 Inserted saline lock: 20 gauge in left antecubital area, using aseptic technique. ld1 Blood collected. ld1 15:48 15:46 Reassessment: tw2 tw2
[2021-12-25] MEDS ORDERED: MAGNESIUM SULFATE 1 gm IVPB 1 GM/100 ML BAG IV ONE (16:37)
[2021-12-25] MEDS ORDERED: POTASSIUM CL SA 10 MEQ TAB PO ONE (17:00)
[2021-12-25] MEDS ORDERED: INSULIN -REGULAR HUMAN 50 UNIT/0.5 ML ML ONE (17:00)
[2021-12-25] MEDS ORDERED: HYDROMORPHONE HCL 0.5 MG/0.5 ML INJ ONE (18:15)
[2021-12-26 00:21] VITALS: TEMP 98.4
[2021-12-26 00:34] VITALS: BP 140/90; O2SAT 98
--- NOTE | 2021-12-26 14:33 | EKG ---
Test Date: 2021-12-25 Test Time: 14:07:50 Battery Tester And Repairer: AAKASH MEASUREMENT RESULTS: Intervals: Rate: 112 MO: 128 QRSD: 78 QT: 342 QTc: 466 [place]: P: 62 MO: 128 QRS: 46 T: 83 INTERPRETIVE STATEMENTS: Sinus tachycardia Cannot rule out Anterior infarct, age undetermined Abnormal ECG Compared to ECG 10/24/2021 15:35:51 Myocardial infarct finding now present Sinus rhythm no longer present Prolonged QT interval no longer present Electronically Signed On 12-26-21 14:31:38 CDT by Moses Bang
== END 2021-12-25 20:33 | disposition short-term general hospital (02) ==
LOC: ER 12:51
DX: T81.49XA Infection following a procedure, other surgical site, initial encounter (principal); A41.9 Sepsis, unspecified organism; J18.9 Pneumonia, unspecified organism; E11.9 Type 2 diabetes mellitus without complications; I10 Essential (primary) hypertension; Z79.4 Long term (current) use of insulin; Z95.1 Presence of aortocoronary bypass graft; Z85.05 Personal history of malignant neoplasm of liver; Z88.3 Allergy status to other anti-infective agents; Z88.0 Allergy status to penicillin; Z20.822 Contact with and (suspected) exposure to COVID-19
CPT/HCPCS: 36415; 71045; 80053; 82248; 83605; 83735; 83880; 84484; 85025; 85610; 85730; 87040; 87811; 93005; 99285; J1170; J1815; J2185; J3370; J3475; J7050